=== PATIENT | male | born 1940 | race Caucasian/White ===

== ENCOUNTER 2016-03-16 11:09 | Emergency (ER) | payer MEDICARE ==
[2016-03-16] MEDS ORDERED: ASPIRIN 81 MG TABLET, CHEWABLE PO ONE (11:33)
[2016-03-16 12:02] LABS: HEMATOCRIT 31.5 % (37.9-51.0); HEMOGLOBIN 10.7 g/dL (13.5-17.0); HGB HCT DIFFERENCE 0.6; MEAN CORPUSCULAR HEMOGLOBIN 28.1 pg (27.0-33.4); MEAN CORPUSCULAR HGB CONC 33.9 g/dL (32.0-36.0); MEAN CORPUSCULAR VOLUME 83 fl (80-97); RED CELL DISTRIBUTION WIDTH 15.9 % (11.5-14.0); WHITE BLOOD COUNT 9.5 10^3/uL (4.0-10.5)
[2016-03-16 12:15] LABS: ALANINE AMINOTRANSFERASE 60 U/L (21-72); ALBUMIN 3.5 g/dL (3.5-5.0); ALKALINE PHOSPHATASE 209 U/L (38-126); ANION GAP 11 (5-19); ASPARTATE AMINO TRANSFERASE 51 U/L (17-59); BILIRUBIN,TOTAL 0.4 mg/dL (0.2-1.3); BLOOD UREA NITROGEN 13 mg/dL (7-20); CALCIUM 9.2 mg/dL (8.4-10.2); CARBON DIOXIDE 27 mmol/L (22-30); CHLORIDE 100 mmol/L (98-107); CREATINE KINASE 54 U/L (55-170); CREATININE RESULT 1.08 mg/dL (0.52-1.25); GLUCOSE 80 mg/dL (75-110); POTASSIUM 4.5 mmol/L (3.6-5.0); SODIUM 137.7 mmol/L (137-145); TOTAL PROTEIN 6.9 g/dL (6.3-8.2)
[2016-03-16 12:33] LABS: BAND NEUTROPHILS % (MANUAL) 1 % (3-5); BASOPHILS % (MANUAL) 0 % (0-2); CREATINE KINASE MB 1.35 ng/mL (<4.55); EOSINOPHILS % (MANUAL) 3 % (0-6); LYMPHOCYTES % (MANUAL) 25 % (13-45); TOTAL CELLS COUNTED 100; TROPONIN I < 0.012 ng/mL
[2016-03-16 12:34] LABS: ANISOCYTOSIS SLIGHT
[2016-03-16 13:39] VITALS: BP 126/64
--- NOTE | 2016-03-16 14:49 | ER Document Report ---
ED General - General Chief Complaint: Chest Pain > 30 Stated Complaint: CHEST PAIN TRAVEL OUTSIDE OF THE [place] IN LAST 30 DAYS: No - HPI Patient complains to provider of: chest pain Notes: Patient coming in for evaluation of chest pain. States chest pain started earlier this morning around 10:00 chest pain was in the upper chest. States that last for a few minutes then was resolved with nitroglycerin. Otherwise patient denies any fevers chills nausea vomiting shortness of breath dizziness. - Related Data Allergies/Adverse Reactions: No Known Allergies Allergy (Unverified 04/23/15 14:44) Past Medical History - Social History Smoking Status: Current Every Day Smoker Chew tobacco use (# tins/day): Yes - cigars Frequency of alcohol use: patient states he drinks 3 beers/day Drug Abuse: None Family History: Reviewed & Not Pertinent, Other - Unobtainable Patient has suicidal ideation: No Patient has homicidal ideation: No Renal/ Medical History: Denies: Hx Peritoneal Dialysis Psychiatric Medical History: Denies: Hx Depression Surgical Hx: Negative Review of Systems - Review of Systems Constitutional: No symptoms reported EENT: No symptoms reported Cardiovascular: Chest pain Respiratory: No symptoms reported Gastrointestinal: No symptoms reported Genitourinary: No symptoms reported Male Genitourinary: No symptoms reported Musculoskeletal: No symptoms reported Skin: No symptoms reported Hematologic/Lymphatic: No symptoms reported Neurological/Psychological: No symptoms reported -: Yes All other systems reviewed and negative Physical Exam - Vital signs Vitals: Temp Pulse Resp BP Pulse Ox 98 F 76 18 121/85 99 03/16/16 11:15 03/16/16 11:15 03/16/16 11:15 03/16/16 11:15 03/16/16 11:15 Interpretation: Normal - General General appearance: Appears well, Alert - HEENT Head: Normocephalic, Atraumatic Eyes: Normal Pupils: PERRL - Respiratory Respiratory status: No respiratory distress Chest status: Nontender Breath sounds: Normal Chest palpation: Normal - Cardiovascular Rhythm: Regular Heart sounds: Normal auscultation Murmur: No - Abdominal Inspection: Normal Distension: No distension Bowel sounds: Normal Tenderness: Nontender Organomegaly: No organomegaly - Back Back: Normal, Nontender - Extremities General upper extremity: Normal inspection, Nontender, Normal color, Normal ROM , Normal temperature General lower extremity: Normal inspection, Nontender, Normal color, Normal ROM , Normal temperature, Normal weight bearing. No: Georgina's sign - Neurological Neuro grossly intact: Yes Cognition: Normal Orientation: AAOx4 Peace Coma Scale Eye Opening: Spontaneous [place] Coma Scale Verbal: Oriented Peace Coma Scale Motor: Obeys Commands Peace Coma Scale Total: 15 Speech: Normal Motor strength normal: LUE, RUE, LLE, RLE Sensory: Normal - Psychological Associated symptoms: Normal affect, Normal mood - Skin Skin Temperature: Warm Skin Moisture: Dry Skin Color: Normal Course - Re-evaluation Re-evalutation: 03/17/16 18:50 Patient coming in for evaluation of chest pain. EKG troponin first negative. At this patient requesting to be discharged home. Patient is ANO 3 able to make his own medical decisions. I did warn the patient about certain possible or disability if we did not complete a workup. Patient does not want admission orders were stay for second troponin. Patient will sign out AGAINST MEDICAL ADVICE. - Vital Signs Vital signs: Temp Pulse Resp BP Pulse Ox 98 F 76 14 126/64 H 98 03/16/16 11:15 03/16/16 11:15 03/16/16 13:02 03/16/16 13:02 03/16/16 13:02 - Laboratory Result Diagrams: 03/16/16 11:35 03/16/16 11:35 Laboratory results interpreted by me: 03/16/16 03/16/16 11:35 11:35 RBC 3.80 L Hgb 10.7 L Hct 31.5 L RDW 15.9 H Plt Count 477 H Band Neutrophils % 1 L Alkaline Phosphatase 209 H Creatine Kinase 54 L Discharge - Discharge Clinical Impression: Chest pain Qualifiers: Chest pain type: unspecified Qualified Code(s): R07.9 - Chest pain, unspecified Condition: Good Disposition: HOME, SELF-CARE Instructions: Chest Wall Pain ([facility]), Chest Pain of Unclear Cause ([facility]) Additional Instructions: You have decided to sign out AGAINST MEDICAL ADVICE. At this time your laboratory studies an EKG showed no critical cause of your chest pain. I would recommend that she stay in hospital for further observation however at this time he was to be discharged home. He stated understanding that without complete workup this could result in certain disability and/or . I'll recommend following up with your primary care physician.
--- NOTE | 2016-03-17 11:34 | EKG REPORT ---
SEVERITY:- ABNORMAL ECG - SINUS RHYTHM ABNRM R PROG, CONSIDER ASMI OR LEAD PLACEMENT : Confirmed by: Jessica William 17-Mar-2016 11:33:31
== END 2016-03-16 14:52 | disposition left against medical advice (07) ==
LOC: ER 11:09
DX: R07.9 Chest pain, unspecified (principal); F17.210 Nicotine dependence, cigarettes, uncomplicated
CPT/HCPCS: 36415; 71010; 80053; 82550; 82553; 84484; 85025; 93005; 93010; 99285

== ENCOUNTER 2016-05-01 00:57 | Inpatient (IN) | payer MEDICARE ==
[2016-05-01] MEDS ORDERED: DIPH/PERTUSS(ACELL)/TETANUS VAC/PF 0.5 ML SYR (>=10YO) IM ONE (01:34)
[2016-05-01] MEDS ORDERED: ALBUTEROL SULFATE 0.083% NEB 2.5 MG/3 ML AMPUL NEB ONE (01:34)
[2016-05-01 01:43] LABS: ABSOLUTE BASOPHILS # (AUTO) 0.1 10^3/uL (0.0-0.2); ABSOLUTE LYMPHOCYTES (AUTO) 1.5 10^3/uL (0.5-4.7); ABSOLUTE MONOCYTES (AUTO) 0.8 10^3/uL (0.1-1.4); ABSOLUTE NEUT (AUTO) 10.5 10^3/uL (1.7-8.2); BASOPHILS % (AUTO) 0.5 % (0-2); EOSINOPHILS % (AUTO) 0.2 % (0-6); HEMATOCRIT 30.2 % (37.9-51.0); HEMOGLOBIN 10.1 g/dL (13.5-17.0); HGB HCT DIFFERENCE 0.1; LYMPHOCYTES % (AUTO) 11.9 % (13-45); MEAN CORPUSCULAR HEMOGLOBIN 27.5 pg (27.0-33.4); MEAN CORPUSCULAR HGB CONC 33.3 g/dL (32.0-36.0); MEAN CORPUSCULAR VOLUME 83 fl (80-97); MONOCYTES % (AUTO) 6.5 % (3-13); RED BLOOD COUNT 3.65 10^6/uL (4.35-5.55); RED CELL DISTRIBUTION WIDTH 17.1 % (11.5-14.0); SEGMENTED NEUTROPHILS % (AUTO) 80.9 % (42-78)
--- NOTE | 2016-05-01 01:44 | ER Document Report ---
ED General - General Stated Complaint: DIFFICULTY BREATHING Time seen by provider: 01:44 Mode of Arrival: Medic Information source: Emergency Med Personnel TRAVEL OUTSIDE OF THE [place] IN LAST 30 DAYS: No - HPI Patient complains to provider of: fall, difficulty breathing Onset: Just prior to arrival Associated symptoms: Nonproductive cough, Shortness of breath Similar symptoms previously: Yes Notes: Patient is a 75-year-old male who was brought to the emergency room by EMS, the initial complaint was fall, however EMS reports the patient had difficulty breathing with an initial pulse ox in the 70s on arrival, patient is pleasantly confused and has no complaints but was unable to provide any specific details about his condition, he is noted to be wheezing bilaterally, and has several skin tears on his extremities consistent with the recent fall, no family members have come to the emergency room to provide any additional information regarding patient - Related Data Allergies/Adverse Reactions: No Known Allergies Allergy (Unverified 04/23/15 14:44) Past Medical History - General Information source: Emergency Med Personnel - Social History Smoking Status: Current Every Day Smoker Family History: Reviewed & Not Pertinent, Other - Unobtainable Renal/ Medical History: Denies: Hx Peritoneal Dialysis Psychiatric Medical History: Denies: Hx Depression Review of Systems - Review of Systems -: Yes ROS unobtainable due to patient's medical condition Constitutional: No symptoms reported EENT: No symptoms reported Cardiovascular: No symptoms reported Respiratory: See HPI Gastrointestinal: No symptoms reported Genitourinary: No symptoms reported Male Genitourinary: No symptoms reported Musculoskeletal: See HPI Skin: See HPI Hematologic/Lymphatic: No symptoms reported Neurological/Psychological: No symptoms reported Physical Exam - Vital signs Interpretation: Tachycardic - General General appearance: Alert, Other - Pleasantly confused, appears older than stated age, chronically ill-appearing - HEENT Head: Normocephalic, Atraumatic Eyes: Normal Conjunctiva: Normal Extraocular movements intact: Yes Eyelashes: Normal Pupils: PERRL Mucous membranes: Dry Pharynx: Normal Neck: Normal - Respiratory Respiratory status: No respiratory distress Chest status: Nontender Breath sounds: Nonproductive cough, Wheezing Chest palpation: Normal - Cardiovascular Rhythm: Regular, Tachycardia Heart sounds: Normal auscultation Murmur: No - Abdominal Inspection: Normal Distension: No distension Bowel sounds: Normal Tenderness: Nontender Organomegaly: No organomegaly - Back Back: Normal, Nontender - Extremities General upper extremity: Other - Several superficial skin tears Knee: Other - Skin tear on left knee, full range of motion, distal sensation and motor is intact - Neurological Orientation: Disoriented to place, Disoriented to events Peace Coma Scale Eye Opening: Spontaneous [place] Coma Scale Verbal: Confused [place] Coma Scale Motor: Obeys Commands [place] Coma Scale Total: 14 Motor strength normal: LUE, RUE, LLE, RLE - Skin Skin Temperature: Warm Skin Moisture: Dry Skin Color: Normal Course - Re-evaluation Re-evalutation: 05/01/16 03:37 Patient pleasantly confused, I'm unsure what his baseline is as no family members have accompanied him to the emergency room, he does appear to have fallen recently, he is also wheezing, has evidence of urinary tract infection and leukocytosis, patient was given several breathing treatments, as well as IV antibiotics and discussed with the hospitalist who agrees to admit for further evaluation and treatment - Laboratory Result Diagrams: 05/01/16 01:15 05/01/16 01:15 Laboratory results interpreted by me: 05/01/16 05/01/16 05/01/16 01:15 01:15 01:15 WBC 13.0 H RBC 3.65 L Hgb 10.1 L Hct 30.2 L RDW 17.1 H Seg Neutrophils % 80.9 H Lymphocytes % 11.9 L Absolute Neutrophils 10.5 H Sodium 127.2 L Chloride 91 L Carbon Dioxide 21 L Glucose 74 L AST 93 H ALT 83 H Alkaline Phosphatase 217 H NT-Pro-B Natriuret Pep 1510 H Albumin 3.4 L Urine Protein Urine Blood 05/01/16 01:26 WBC RBC Hgb Hct RDW Seg Neutrophils % Lymphocytes % Absolute Neutrophils Sodium Chloride Carbon Dioxide Glucose AST ALT Alkaline Phosphatase NT-Pro-B Natriuret Pep Albumin Urine Protein 100 H Urine Blood LARGE H - Diagnostic Test Radiology reviewed: Image reviewed, Reports reviewed - EKG Interpretation by Me EKG shows normal: Sinus rhythm Rate: Tachycardia - Transfer of Care Care transferred to following provider: Dr. Hopper Discharge - Discharge Clinical Impression: COPD exacerbation, Hyponatremia Urinary tract infection Qualifiers: Urinary tract infection type: site unspecified Hematuria presence: without hematuria Qualified Code(s): N39.0 - Urinary tract infection, site not specified Condition: Fair Disposition: ADMITTED INPATIENT Admitting Provider: Hospitalist Unit Admitted: Telemetry Referrals: CAROLINA KERNS MD [Primary Care Provider] - Follow up as needed
[2016-05-01 01:46] LABS: VENOUS BLOOD BASE EXCESS -0.5 mmol/L; VENOUS BLOOD HCO3 24.9 mmol/L (20-32); VENOUS BLOOD PCO2 43.3 mmHg (35-63); VENOUS BLOOD PH 7.38 (7.30-7.42)
[2016-05-01 01:52] LABS: ALANINE AMINOTRANSFERASE 83 U/L (21-72); ALBUMIN 3.4 g/dL (3.5-5.0); ALKALINE PHOSPHATASE 217 U/L (38-126); ANION GAP 15 (5-19); ASPARTATE AMINO TRANSFERASE 93 U/L (17-59); BILIRUBIN,TOTAL 0.5 mg/dL (0.2-1.3); BLOOD UREA NITROGEN 15 mg/dL (7-20); CARBON DIOXIDE 21 mmol/L (22-30); CHLORIDE 91 mmol/L (98-107); CREATININE RESULT 1.06 mg/dL (0.52-1.25); GLUCOSE 74 mg/dL (75-110); POTASSIUM 4.5 mmol/L (3.6-5.0); SODIUM 127.2 mmol/L (137-145); TOTAL PROTEIN 6.7 g/dL (6.3-8.2)
[2016-05-01 02:05] LABS: APPEARANCE,URINE CLOUDY; BILIRUBIN,URINE NEGATIVE (NEGATIVE); GLUCOSE, URINE NEGATIVE (NEGATIVE); KETONES,URINE NEGATIVE (NEGATIVE); LEUKOCYTE ESTERASE,URINE NEGATIVE (NEGATIVE); NITRITE,URINE NEGATIVE (NEGATIVE); PROTEIN,URINE 100 mg/dL (NEGATIVE); URINE SPECIFIC GRAVITY 1.013; UROBILINOGEN,URINE NEGATIVE mg/dL (<2.0)
[2016-05-01] MEDS ORDERED: IPRATROPIUM/ALBUTEROL 0.5-2.5 MG/3 ML AMPUL NEB ONE (02:38)
[2016-05-01] MEDS ORDERED: LEVOFLOXACIN 750 MG/D5W RTU 150 ML IV ONE (02:44)
[2016-05-01] MEDS ORDERED: CEFTRIAXONE RTU 1 GM/D5W 50 ML IV ONE (02:44)
[2016-05-01] MEDS ORDERED: DEXTROSE 50%-WATER 25 GM/50 ML DISP.SYRIN IV ONE (03:26)
[2016-05-01] MEDS ORDERED: ACETAMINOPHEN 325 MG TABLET PO PRN (04:06)
[2016-05-01] MEDS ORDERED: NORMAL SALINE 1000 ML 1,000 ML IV SCH (04:15)
[2016-05-01 05:17] LABS: URINE BARBITURATES SCREEN NEGATIVE; URINE METHADONE SCREEN NEGATIVE; URINE OPIATES LOW NEGATIVE; URINE PHENCYCLIDINE SCREEN NEGATIVE
[2016-05-01 05:39] LABS: ABSOLUTE BASOPHILS # (AUTO) 0.1 10^3/uL (0.0-0.2); ABSOLUTE LYMPHOCYTES (AUTO) 0.6 10^3/uL (0.5-4.7); ABSOLUTE MONOCYTES (AUTO) 0.5 10^3/uL (0.1-1.4); ABSOLUTE NEUT (AUTO) 8.7 10^3/uL (1.7-8.2); BASOPHILS % (AUTO) 0.5 % (0-2); HEMATOCRIT 27.4 % (37.9-51.0); HEMOGLOBIN 9.4 g/dL (13.5-17.0); HGB HCT DIFFERENCE 0.8; LYMPHOCYTES % (AUTO) 6.2 % (13-45); MEAN CORPUSCULAR HEMOGLOBIN 28.1 pg (27.0-33.4); MEAN CORPUSCULAR HGB CONC 34.4 g/dL (32.0-36.0); MEAN CORPUSCULAR VOLUME 82 fl (80-97); MONOCYTES % (AUTO) 5.5 % (3-13); RED BLOOD COUNT 3.35 10^6/uL (4.35-5.55); RED CELL DISTRIBUTION WIDTH 16.8 % (11.5-14.0); SEGMENTED NEUTROPHILS % (AUTO) 87.8 % (42-78); WHITE BLOOD COUNT 9.9 10^3/uL (4.0-10.5)
[2016-05-01 06:01] LABS: ANION GAP 12 (5-19); BLOOD UREA NITROGEN 15 mg/dL (7-20); CALCIUM 8.6 mg/dL (8.4-10.2); CARBON DIOXIDE 20 mmol/L (22-30); CHLORIDE 95 mmol/L (98-107); CREATININE RESULT 1.04 mg/dL (0.52-1.25); GLUCOSE 101 mg/dL (75-110); SODIUM 126.9 mmol/L (137-145)
[2016-05-01] MEDS ORDERED: THIAMINE HCL 100 MG, FOLIC ACID 1 MG in NORMAL SALINE 50 ML IV SCH (06:30)
[2016-05-01 06:32] LABS: POTASSIUM 3.5 mmol/L (3.6-5.0)
--- NOTE | 2016-05-01 06:34 | PDOC H&P ---
History of Present Illness Admission Date/PCP: 05/01/16 04:06 CAROLINA KERNS MD Patient complains of: Altered mental status History of Present Illness: LIZABETH MICHAELS is a 75 year old male with a past medical history of alcohol dependence, COPD, deafness, and recurrent falls. Who presented via EMS for shortness of breath and falls found to have oxygen saturation in the 70s with bilateral wheezing and notable for skin tears on all 4 extremities. Patient is thought to have profound encephalopathy but is deaf and unable to verbalize he feels much better and denied pain but unable to give any details. Family members are unable to be contacted for additional history. In the emergency room his found to have encephalopathy trying to smoke his pulse oximeter, leukocytosis, hyponatremia and COPD exacerbation he started on empiric antibiotics and DuoNeb and referred to the hospitalist for admission Past Medical History Pulmonary Medical History: Reports: Chronic Obstructive Pulmonary Disease (COPD) Psychiatric Medical History: Reports: Alcohol Dependency, Tobacco Dependency Denies: Depression Social History Information Source: [facility] Records Smoking Status: Current Every Day Smoker Frequency of Alcohol Use: Heavy Hx Recreational Drug Use: No Hx Prescription Drug Abuse: No - Advance Directive Resuscitation Status: Full Code Family History Family History: Other - Unobtainable Parental Family History Reviewed: Yes - unobtainable Children Family History Reviewed: Yes Sibling(s) Family History Reviewed.: Yes Medication/Allergy Home Medications: Albuterol Sulfate [Proair HFA] 2 puff IH Q6 04/23/15 Docusate Sodium [Colace 100 mg Capsule] 100 mg PO BID capsule 05/01/15 Folic Acid 1 mg PO DAILY #30 tablet 05/01/15 Lansoprazole [Prevacid 30 mg Odt Tablet] 30 mg PO Q6AM tab.rap. 05/01/15 Multivitamin [Multivitamins] 1 each PO DAILY #30 capsule 05/01/15 Risperidone [Risperdal 1 mg Tablet] 1 mg PO QHS tablet 05/01/15 Thiamine HCl [Thiamine 100 mg Tablet] 100 mg PO DAILY #30 tablet 05/01/15 Trazodone HCl [Desyrel 50 mg Tablet] 50 mg PO QHS tablet 05/01/15 Cephalexin Monohydrate [Keflex 500 mg Capsule] 500 mg PO QID #20 capsule Allergies/Adverse Reactions: No Known Allergies Allergy (Unverified 04/23/15 14:44) Review of Systems ROS unobtainable: Due to mental status - Unobtainable secondary to encephalopathy Physical Exam Vital Signs: Temp Pulse Resp BP Pulse Ox 98.0 F 99 16 133/75 H 98 05/01/16 05:37 05/01/16 05:37 05/01/16 05:37 05/01/16 05:37 05/01/16 05:37 General appearance: PRESENT: disheveled, hard of hearing, mild distress, thin Head exam: PRESENT: atraumatic, normocephalic Eye exam: PRESENT: conjunctiva pink, EOMI, PERRLA. ABSENT: scleral icterus Ear exam: PRESENT: normal external ear exam Mouth exam: PRESENT: dry mucosa Neck exam: ABSENT: carotid bruit, JVD, lymphadenopathy, thyromegaly Respiratory exam: PRESENT: accessory muscle use, crackles, prolonged expiratory phas, symmetrical, tachypnea. ABSENT: rales, rhonchi, wheezes Cardiovascular exam: PRESENT: RRR. ABSENT: diastolic murmur, rubs, systolic murmur Pulses: PRESENT: normal dorsalis pedis pul Vascular exam: PRESENT: normal capillary refill GI/Abdominal exam: PRESENT: normal bowel sounds, soft. ABSENT: distended, guarding, mass, organolmegaly, rebound, tenderness Rectal exam: PRESENT: deferred Extremities exam: PRESENT: full ROM, other - Abrasions, ecchymosis and skin tears to all 4 extremities. ABSENT: calf tenderness, clubbing, joint swelling Neurological exam: PRESENT: altered, oriented to person, CN II-XII grossly intact Psychiatric exam: PRESENT: unusual affect Skin exam: PRESENT: abrasion, other - Abrasions, skin tears and ecchymosis on all 4 extremities Results Laboratory Results: 05/01/16 05:32 05/01/16 05:32 WBC 9.9 RBC 3.35 L Hgb 9.4 L Hct 27.4 L MCV 82 MCH 28.1 MCHC 34.4 RDW 16.8 H Plt Count 319 Seg Neutrophils % 87.8 H Lymphocytes % 6.2 L Monocytes % 5.5 Eosinophils % 0.0 Basophils % 0.5 Absolute Neutrophils 8.7 H Absolute Lymphocytes 0.6 Absolute Monocytes 0.5 Absolute Eosinophils 0.0 Absolute Basophils 0.1 Impressions: Chest X-Ray 05/01/16 01:33 IMPRESSION: NO ACUTE RADIOGRAPHIC FINDING IN THE CHEST. Knee X-Ray 05/01/16 01:34 IMPRESSION: NEGATIVE STUDY OF THE LEFT KNEE. NO RADIOGRAPHIC EVIDENCE OF ACUTE INJURY. Assessment & Plan - Diagnosis (1) COPD exacerbation Is this a current diagnosis for this admission?: YesPlan: Likely secondary to acute on chronic bronchitis he'll receive supplemental oxygen empiric antibiotics albuterol nebulizer and aggressive pulmonary toilet (2) Alcohol dependence Is this a current diagnosis for this admission?: YesPlan: Thiamine folate when necessary Ativan (3) Altered mental status Qualifiers: Altered mental status type: disorientation Qualified Code(s): R41.0 - Disorientation, unspecified Is this a current diagnosis for this admission?: YesPlan: Likely secondary to the above possible early alcohol withdrawal continue supportive care, thiamine and folate (4) Falls Is this a current diagnosis for this admission?: YesPlan: Deconditioning versus Warnicke's encephalopathy patient will need physical therapy evaluation (5) Hyponatremia Is this a current diagnosis for this admission?: YesPlan: Patient appears significantly dehydrated he'll receive a normal saline fluid challenge with evaluation of chemistry every 8 hours - Time Time Spent: 50 to 70 Minutes
[2016-05-01] MEDS: IPRATROPIUM/ALBUTEROL 0.5-2.5 MG/3 ML AMPUL NEB SCH ×2 (08:05→14:21)
[2016-05-01] MEDS ORDERED: POTASSIUM CHLORIDE 10 MEQ TABLET.SA PO ONE (08:30)
[2016-05-01] MEDS ORDERED: FOLIC ACID 1 MG TABLET PO SCH (10:00)
[2016-05-01] MEDS ORDERED: LEVOFLOXACIN 750 MG/D5W RTU 150 ML IV SCH (10:00)
[2016-05-01] MEDS ORDERED: GUAIFENESIN 600 MG TABLET.SA PO SCH (10:00)
[2016-05-01] MEDS ORDERED: DOCUSATE SODIUM 100 MG CAPSULE PO SCH (10:00)
[2016-05-01] MEDS ORDERED: THIAMINE HCL 100 MG TABLET PO SCH (10:00)
[2016-05-01] MEDS ORDERED: LEVOFLOXACIN 750 MG TABLET PO SCH (11:00)
[2016-05-01] MEDS ORDERED: PREDNISONE 20 MG TABLET PO ONE (11:30)
[2016-05-01 13:24] VITALS: BP 105/74
[2016-05-01] MEDS: HEPARIN SOD (PORCINE) 5,000 UNIT/ML 1 ML SYRINGE SUBCUT SCH ×2 (14:07→14:25)
[2016-05-01 14:28] LABS: ANION GAP 12 (5-19); BLOOD UREA NITROGEN 14 mg/dL (7-20); CALCIUM 8.8 mg/dL (8.4-10.2); CARBON DIOXIDE 22 mmol/L (22-30); CHLORIDE 96 mmol/L (98-107); CREATININE RESULT 1.09 mg/dL (0.52-1.25); GLUCOSE 82 mg/dL (75-110); SODIUM 129.5 mmol/L (137-145)
--- NOTE | 2016-05-01 17:32 | PDOC DISCHARGE SUMMARY ---
General - Admit/Disc Date/PCP Admission Date/Primary Care Provider: 05/01/16 04:06 CAROLINA KERNS MD Discharge Date: 05/01/16 - Discharge Diagnosis (1) Left against medical advice Is this a current diagnosis for this admission?: Yes (2) COPD exacerbation Is this a current diagnosis for this admission?: Yes (3) Liver mass Is this a current diagnosis for this admission?: Yes (4) Anemia Is this a current diagnosis for this admission?: Yes (5) Alcohol dependence Is this a current diagnosis for this admission?: Yes (6) Hyponatremia Is this a current diagnosis for this admission?: Yes - Additional Information Resuscitation Status: Full Code Home Medications: Albuterol Sulfate [Proair HFA] 2 puff IH Q6 04/23/15 Docusate Sodium [Colace 100 mg Capsule] 100 mg PO BID capsule 05/01/15 Folic Acid 1 mg PO DAILY #30 tablet 05/01/15 Lansoprazole [Prevacid 30 mg Odt Tablet] 30 mg PO Q6AM tab.rap. 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 Also could be related to his drinking. Patient's sodium improved with fluid restriction.Patient was started on prednisone and Levaquin. Patient was also started on scheduled nebulized treatments. Patient was able to ambulate with assistance. Apparently, patient began reporting that he wanted to leave and at that time was reported to me that he was awake alert and oriented 3 which is documented. He was permitted significance medical advice. Should be noted I did attempt to call his daughter today in order to discuss an underlying liver mass of unsure etiology. Patient was given no prescriptions. No follow-up appointments are made for patient. Physical Exam Vital Signs: Temp Pulse Resp BP Pulse Ox 98.7 F 86 18 105/74 95 05/01/16 12:07 05/01/16 14:25 05/01/16 14:25 05/01/16 12:07 05/01/16 14:25 Intake & Output 04/30/16 05/01/16 05/02/16 06:59 06:59 06:59 Weight 64.1 kg Exam: General: Hard of hearing, no acute respiratory distress HEENT: AT/NC, PERRL, EOMI, oropharynx is moist, pink, no scleral icterus, no conjunctival injection Neck: No JVD, trachea midline Chest: Prolonged expiratory phase, Clear to auscultation bilaterally, no wheezes rhonchi or rales CV: Regular rate and rhythm, normal S1 and S2, no murmur, rub, or gallop Abdomen: Soft, nontender to palpation, mildly+, active bowel sounds; no rebound , rigidity, or guarding Extremities: No cyanosis, clubbing or edema Neuro: Patient is hard of hearing, grossly intact, Results Laboratory Results: 05/01/16 05:32 05/01/16 13:53 05/01/16 05/01/16 05/01/16 05:32 05:32 05:32 WBC 9.9 RBC 3.35 L Hgb 9.4 L Hct 27.4 L MCV 82 MCH 28.1 MCHC 34.4 RDW 16.8 H Plt Count 319 Seg Neutrophils % 87.8 H Lymphocytes % 6.2 L Monocytes % 5.5 Eosinophils % 0.0 Basophils % 0.5 Absolute Neutrophils 8.7 H Absolute Lymphocytes 0.6 Absolute Monocytes 0.5 Absolute Eosinophils 0.0 Absolute Basophils 0.1 Sodium 126.9 L Potassium 3.5 L D Chloride 95 L Carbon Dioxide 20 L Anion Gap 12 BUN 15 Creatinine 1.04 Est GFR ( Amer) > 60 Est GFR (Non-Af Amer) > 60 Glucose 101 Serum Osmolality 258 L Calcium 8.6 Magnesium 05/01/16 05/01/16 05:32 13:53 WBC RBC Hgb Hct MCV MCH MCHC RDW Plt Count Seg Neutrophils % Lymphocytes % Monocytes % Eosinophils % Basophils % Absolute Neutrophils Absolute Lymphocytes Absolute Monocytes Absolute Eosinophils Absolute Basophils Sodium 129.5 L Potassium 4.0 Chloride 96 L Carbon Dioxide 22 Anion Gap 12 BUN 14 Creatinine 1.09 Est GFR ( Amer) > 60 Est GFR (Non-Af Amer) > 60 Glucose 82 Serum Osmolality Calcium 8.8 Magnesium 1.8 Impressions: Chest X-Ray 05/01/16 01:33 IMPRESSION: NO ACUTE RADIOGRAPHIC FINDING IN THE CHEST. Knee X-Ray 05/01/16 01:34 IMPRESSION: NEGATIVE STUDY OF THE LEFT KNEE. NO RADIOGRAPHIC EVIDENCE OF ACUTE INJURY. Qualifiers PATEINT BEING DISCHARGED WITH ANY OF THE FOLLOWING DIAGNOSIS?: No Plan Time Spent: Less than 30 Minutes
[2016-05-01] MEDS ORDERED: PREDNISONE 20 MG TABLET PO SCH (18:00)
== END 2016-05-01 15:45 | disposition left against medical advice (07) | DRG 190 ==
LOC: ER 00:57 → EH 03:38 → UNDOADMIN 03:38 → EH 04:06 → 5 05:55
PROVIDERS: ADMIT Internal Medicine; ATTEND Internal Medicine
PROC: 3E0F73Z Introduction of Anti-inflammatory into Respiratory Tract, Via Natural or Artificial Opening (ICD-10-PCS; principal; 2016-05-01)
DX: J44.1 Chronic obstructive pulmonary disease with (acute) exacerbation (principal); G93.40 Encephalopathy, unspecified; E22.2 Syndrome of inappropriate secretion of antidiuretic hormone; F10.20 Alcohol dependence, uncomplicated; D64.9 Anemia, unspecified; Z53.21 Procedure and treatment not carried out due to patient leaving prior to being seen by health care provider; R29.6 Repeated falls; H91.90 Unspecified hearing loss, unspecified ear; J44.0 Chronic obstructive pulmonary disease with (acute) lower respiratory infection; J20.9 Acute bronchitis, unspecified; R16.0 Hepatomegaly, not elsewhere classified; S40.812A Abrasion of left upper arm, initial encounter; S40.811A Abrasion of right upper arm, initial encounter; S80.812A Abrasion, left lower leg, initial encounter; S80.811A Abrasion, right lower leg, initial encounter; W19.XXXA Unspecified fall, initial encounter; Z79.899 Other long term (current) drug therapy; Z91.81 History of falling
CPT/HCPCS: 36415; 71010; 80048; 80053; 80307; 81001; 82140; 82803; 82962; 83735; 83880; 83930; 83935; 84443; 85025; 87086; 90471; 90715; 94640; 99285; J0696; J1644; J1956; J3490; J7030; J7512; J7620

== ENCOUNTER 2016-05-02 18:44 | Inpatient (IN) | payer MEDICARE ==
[2016-05-02] MEDS ORDERED: NORMAL SALINE 1000 ML 500 ML IV ONE (18:55)
[2016-05-02] MEDS ORDERED: THIAMINE HCL 500 MG in NORMAL SALINE 250 ML IV ONE (18:56)
[2016-05-02] MEDS ORDERED: METHYLPREDNISOLONE INJ 125 MG/2 ML SDV IV ONE (18:58)
[2016-05-02] MEDS ORDERED: ALBUTEROL SULFATE 0.083% NEB 2.5 MG/3 ML AMPUL NEB ONE (18:59)
[2016-05-02] MEDS ORDERED: MAGNESIUM SULFATE/D5W 100 ML IV SCH (19:00)
--- NOTE | 2016-05-02 19:02 | ER Document Report ---
ED General - General Stated Complaint: RESPIRATORY DISTRESS Cannot obtain history due to: Mentally challenged, Uncooperative Notes: Patient is a 75-year-old male who presents in respiratory distress. He apparently eloped from the hospital earlier today after being admitted for the same. Patient is a very poor historian and does not provide any meaningful history at time of arrival. EMS states that her family member who patient lives with contacted EMS when she noted progressively worsening shortness of breath. TRAVEL OUTSIDE OF THE [place] IN LAST 30 DAYS: No - Related Data Allergies/Adverse Reactions: No Known Allergies Allergy (Unverified 04/23/15 14:44) Past Medical History - General Information source: Emergency Med Personnel Cannot obtain history due to: Unstable vital signs, Uncooperative - Social History Smoking Status: Current Every Day Smoker Frequency of alcohol use: Heavy Drug Abuse: None Lives with: Family Family History: Other - Unobtainable Pulmonary Medical History: Reports: Hx COPD Renal/ Medical History: Denies: Hx Peritoneal Dialysis Psychiatric Medical History: Denies: Hx Depression Review of Systems - Review of Systems Notes: Constitutional: Negative for fever. HENT: Negative for sore throat. Eyes: Negative for visual changes. Cardiovascular: Negative for chest pain. Respiratory: Positive for shortness of breath. Gastrointestinal: Negative for abdominal pain, vomiting or diarrhea. Genitourinary: Negative for dysuria. Musculoskeletal: Negative for back pain. Skin: Negative for rash. Neurological: Negative for headaches, weakness or numbness. 10 point ROS negative except as marked above and in HPI. Physical Exam - Vital signs Vitals: Resp Pulse Ox 23 H 97 05/02/16 18:55 05/02/16 18:55 Interpretation: Tachycardic, Hypoxic, Tachypneic Notes: PHYSICAL EXAMINATION: GENERAL: Frail, ill-appearing elderly gentleman. Appears old than stated age HEAD: Atraumatic, normocephalic. EYES: Pupils equal round and reactive to light, extraocular movements intact, sclera with mild icterus, conjunctiva are normal. ENT: nares patent, oropharynx clear without exudates. Dry mucous membranes. NECK: Normal range of motion, supple without lymphadenopathy LUNGS: Moderate respiratory distress with intercostal retractions, tachypnea with initial respiratory rate in the low 30s. Diffuse wheezing in all lung singh with diminished air movement throughout. HEART: Regular tachycardia without murmurs ABDOMEN: Soft, nontender, normoactive bowel sounds. No guarding, no rebound. No masses appreciated. EXTREMITIES: Normal range of motion, no pitting or edema. No cyanosis. NEUROLOGICAL: No focal neurological deficits. Moves all extremities spontaneously and on command. PSYCH: Seems confused, oriented only to person. SKIN: Warm, Dry, normal turgor, multiple abrasions and excoriations on all 4 extremities Course - Re-evaluation Re-evalutation: 05/02/16 19:01 Patient arrives in respiratory distress, saturating 73% on room air. He currently left AGAINST MEDICAL ADVICE earlier today from the hospital after being admitted for COPD exacerbation as well as hyponatremia likely secondary to his chronic alcoholism. Patient is not able to provide any meaningful history at time of arrival, smells of alcohol and appears intoxicated. He has multiple abrasions and excoriations all extremities consistent with multiple repeated falls. He does have significant wheezing with poor air movement bilaterally with associated intercostal and supraclavicular retractions. He was immediately placed on BiPAP with continuous albuterol inhalers in-line. IV magnesium, Solu-Medrol, fluids, and thiamine are being administered. Of note, patient still has an IV in place from when he left. He is critically ill at this time will require frequent reassessments. 05/02/16 19:24 Patient's work of breathing is improving on BiPAP and he has become very tremulous and states he feels he is beginning to withdrawal from alcohol. 5 mg of IV diazepam will be administered. Will continue to reassess frequently 05/02/16 2200 Patient's work of breathing remains improved. CXR read as pneumonia, abx started. Case discussed with who will admit. 2350- Patient is more somnolent now, no new meds given. Accucheck within normal limits. VBG repeat without elevated c02. Other vitals wnl. Unclear etiology of patient's somnolence although he continues to move all extremities with noxious stimuli and resist eye opening. Will obtain a CT head to exclude intracranial bleed although I think this is unlikely. 05/03/16 02:42 CT head negative for any acute intercranial bleed. Patient is more awake at this time. - Vital Signs Vital signs: Temp Pulse Resp BP Pulse Ox 19 124/63 100 05/02/16 23:01 05/02/16 23:01 05/02/16 23:01 - Laboratory Result Diagrams: 05/02/16 19:53 05/02/16 19:53 Laboratory results interpreted by me: 05/02/16 05/02/16 05/02/16 19:53 19:53 23:07 WBC 12.4 H RBC 3.59 L Hgb 10.1 L Hct 30.1 L RDW 17.3 H Seg Neutrophils % 86.9 H Lymphocytes % 7.7 L Absolute Neutrophils 10.8 H VBG HCO3 Sodium 130.3 L Chloride 96 L Carbon Dioxide 21 L BUN 27 H Creatinine 1.37 H Est GFR (Non-Af Amer) 51 L Direct Bilirubin 0.5 H AST 409 H ALT 283 H Alkaline Phosphatase 166 H Ammonia < 8.7 L Albumin 3.2 L 05/02/16 23:07 WBC RBC Hgb Hct RDW Seg Neutrophils % Lymphocytes % Absolute Neutrophils VBG HCO3 19.9 L Sodium Chloride Carbon Dioxide BUN Creatinine Est GFR (Non-Af Amer) Direct Bilirubin AST ALT Alkaline Phosphatase Ammonia Albumin - Diagnostic Test Radiology reviewed: Image reviewed, Reports reviewed Radiology results interpreted by me: 05/02/16 23:59 Chest x-ray: Right-sided pneumonia - EKG Interpretation by Me Additional EKG results interpreted by me: 05/03/16 02:41 Normal sinus rhythm. Rate 96. PACs. No ST elevation or depression. Critical Care Note - Critical Care Note Total time excluding time spent on procedures (mins): 40 Comments: Critical care time spent obtaining history from patient or surrogate, discussions with consultants, development of treatment plan with patient or surrogate, evaluation of patient's response to treatment, examination of patient , ordering and performing treatments and interventions, ordering and review of laboratory studies, re-evaluation of patient's condition, ordering and review of radiographic studies and review of old charts Discharge - Discharge Clinical Impression: COPD exacerbation, Respiratory distress Pneumonia Qualifiers: Pneumonia type: due to unspecified organism Laterality: right Lung location: middle lobe of lung Qualified Code(s): J18.1 - Lobar pneumonia, unspecified organism Condition: Fair Disposition: ADMITTED INPATIENT Admitting Provider: [facility] Unit Admitted: Telemetry
[2016-05-02] MEDS ORDERED: DIAZEPAM INJ 10 MG/2 ML DISP.SYRIN IV ONE (19:24)
[2016-05-02] MEDS ORDERED: CEFTRIAXONE 1 GM/D5W RTU 50 ML IV ONE (19:49)
[2016-05-02] MEDS ORDERED: AZITHROMYCIN 250 MG TABLET PO ONE (19:50)
[2016-05-02 20:13] LABS: ABSOLUTE BASOPHILS # (AUTO) 0.1 10^3/uL (0.0-0.2); ABSOLUTE MONOCYTES (AUTO) 0.6 10^3/uL (0.1-1.4); ABSOLUTE NEUT (AUTO) 10.8 10^3/uL (1.7-8.2); BASOPHILS % (AUTO) 0.6 % (0-2); HEMATOCRIT 30.1 % (37.9-51.0); HEMOGLOBIN 10.1 g/dL (13.5-17.0); HGB HCT DIFFERENCE 0.2; LYMPHOCYTES % (AUTO) 7.7 % (13-45); MEAN CORPUSCULAR HGB CONC 33.5 g/dL (32.0-36.0); MEAN CORPUSCULAR VOLUME 84 fl (80-97); MONOCYTES % (AUTO) 4.8 % (3-13); RED BLOOD COUNT 3.59 10^6/uL (4.35-5.55); RED CELL DISTRIBUTION WIDTH 17.3 % (11.5-14.0); SEGMENTED NEUTROPHILS % (AUTO) 86.9 % (42-78); WHITE BLOOD COUNT 12.4 10^3/uL (4.0-10.5)
[2016-05-02 20:25] LABS: VENOUS BLOOD HCO3 20.2 mmol/L (20-32); VENOUS BLOOD PCO2 38.4 mmHg (35-63); VENOUS BLOOD PH 7.34 (7.30-7.42)
[2016-05-02] MEDS ORDERED: THIAMINE HCL 500 MG in NORMAL SALINE 50 ML IV ONE (20:30)
[2016-05-02 20:33] LABS: ALANINE AMINOTRANSFERASE 283 U/L (21-72); ALBUMIN 3.2 g/dL (3.5-5.0); ALCOHOL < 10 mg/dL (NONE DETECTED); ALKALINE PHOSPHATASE 166 U/L (38-126); ANION GAP 13 (5-19); ASPARTATE AMINO TRANSFERASE 409 U/L (17-59); BILIRUBIN,DIRECT 0.5 mg/dL (0.0-0.4); BILIRUBIN,TOTAL 0.5 mg/dL (0.2-1.3); BLOOD UREA NITROGEN 27 mg/dL (7-20); CARBON DIOXIDE 21 mmol/L (22-30); CHLORIDE 96 mmol/L (98-107); CREATININE RESULT 1.37 mg/dL (0.52-1.25); GLUCOSE 88 mg/dL (75-110); SODIUM 130.3 mmol/L (137-145); TOTAL PROTEIN 6.6 g/dL (6.3-8.2)
[2016-05-02] MEDS ORDERED: AZITHROMYCIN 250 MG TABLET ONE (23:01)
[2016-05-02] MEDS ORDERED: AZITHROMYCIN INJ 500 MG VIAL IV ONE (23:38)
[2016-05-02 23:48] LABS: VENOUS BLOOD BASE EXCESS -5.9 mmol/L; VENOUS BLOOD HCO3 19.9 mmol/L (20-32); VENOUS BLOOD PCO2 40.3 mmHg (35-63); VENOUS BLOOD PH 7.31 (7.30-7.42)
[2016-05-03] MEDS ORDERED: GUAIFENESIN SYRP 200 MG/10 ML UDC PO PRN (00:53)
[2016-05-03] MEDS ORDERED: ACETAMINOPHEN 325 MG TABLET PO PRN (00:53)
[2016-05-03] MEDS ORDERED: LORAZEPAM INJ 2 MG/1 ML VIAL IV PRN ×2 (00:56→08:00)
[2016-05-03] MEDS: IPRATROPIUM/ALBUTEROL 0.5-2.5 MG/3 ML AMPUL NEB SCH ×4 (02:28→19:45)
[2016-05-03 03:12] LABS: CREATINE KINASE MB 18.2 ng/mL (<4.55)
[2016-05-03 03:29] LABS: TROPONIN I 0.317 ng/mL
--- NOTE | 2016-05-03 04:54 | PDOC H&P ---
History of Present Illness Admission Date/PCP: 05/03/16 00:53 CAROLINA KERNS MD Patient complains of: Shortness of breath History of Present Illness: LIZABETH MICHAELS is a 75 year old male with a past medical history of alcohol dependence, COPD deafness and recurrent falls. Who was hospitalized yesterday for COPD exacerbation, hyponatremia and alcohol withdrawal but left AGAINST MEDICAL ADVICE 12 hours ago. He returns after noted by family members to be short of breath and difficult to arouse and brought to the emergency room for evaluation where he is in respiratory distress with a cough producing copious amounts of purulent material, appearing intoxicated and smelling of alcohol. Labs showed improvement of hyponatremia, leukocytosis and Imaging reveals bilateral infiltrates he started on DuoNeb and BiPAP he is IVCed and referred to the hospitalist for admission. Past Medical History Pulmonary Medical History: Reports: Chronic Obstructive Pulmonary Disease (COPD) , Pneumonia Psychiatric Medical History: Reports: Alcohol Dependency Denies: Depression Social History Information Source: [facility] Records Lives with: Family Smoking Status: Current Every Day Smoker Frequency of Alcohol Use: Heavy Hx Recreational Drug Use: No Hx Prescription Drug Abuse: No - Advance Directive Resuscitation Status: Full Code Family History Family History: Other - Unobtainable Parental Family History Reviewed: Yes - unobtainable Children Family History Reviewed: Yes Sibling(s) Family History Reviewed.: Yes Medication/Allergy Home Medications: Albuterol Sulfate [Proair HFA] 2 puff IH Q6 04/23/15 Docusate Sodium [Colace 100 mg Capsule] 100 mg PO BID capsule 05/01/15 Folic Acid 1 mg PO DAILY #30 tablet 05/01/15 Lansoprazole [Prevacid 30 mg Odt Tablet] 30 mg PO Q6AM tab.rap. 05/01/15 Multivitamin [Multivitamins] 1 each PO DAILY #30 capsule 05/01/15 Risperidone [Risperdal 1 mg Tablet] 1 mg PO QHS tablet 05/01/15 Thiamine HCl [Thiamine 100 mg Tablet] 100 mg PO DAILY #30 tablet 05/01/15 Trazodone HCl [Desyrel 50 mg Tablet] 50 mg PO QHS tablet 05/01/15 Cephalexin Monohydrate [Keflex 500 mg Capsule] 500 mg PO QID #20 capsule Allergies/Adverse Reactions: No Known Allergies Allergy (Unverified 04/23/15 14:44) Review of Systems ROS unobtainable: Due to mental status - Encephalopathic Physical Exam Vital Signs: Temp Pulse Resp BP Pulse Ox 17 96/64 L 100 05/03/16 04:01 05/03/16 04:01 05/03/16 04:01 General appearance: PRESENT: disheveled, hard of hearing, severe distress, thin Head exam: PRESENT: atraumatic, normocephalic Eye exam: PRESENT: conjunctiva pink, EOMI, PERRLA. ABSENT: scleral icterus Ear exam: PRESENT: normal external ear exam Mouth exam: PRESENT: dry mucosa Neck exam: ABSENT: carotid bruit, JVD, lymphadenopathy, thyromegaly Respiratory exam: PRESENT: accessory muscle use, crackles, prolonged expiratory phas, rales, retraction, rhonchi, symmetrical, tachypnea. ABSENT: chest wall tenderness, stridor Cardiovascular exam: PRESENT: RRR. ABSENT: diastolic murmur, rubs, systolic murmur Pulses: PRESENT: normal dorsalis pedis pul Vascular exam: PRESENT: normal capillary refill GI/Abdominal exam: PRESENT: normal bowel sounds, soft. ABSENT: distended, guarding, mass, organolmegaly, rebound, tenderness Rectal exam: PRESENT: deferred Extremities exam: PRESENT: full ROM. ABSENT: calf tenderness, clubbing, pedal edema Neurological exam: PRESENT: altered, oriented to person, CN II-XII grossly intact. ABSENT: motor sensory deficit Psychiatric exam: PRESENT: unusual affect Skin exam: PRESENT: abrasion, dry, erythema, skin tears, other - Extensive abrasions, ecchymosis and skin tears of various stages of healing to all 4 extremities Results Impressions: Chest X-Ray 05/02/16 18:55 IMPRESSION: New patchy airspace disease right mid lung concerning for developing pneumonia. Recommend followup radiographs 4 to 6 weeks to ensure resolution. Head CT 05/03/16 00:00 IMPRESSION: MILD CHRONIC CHANGES OF ATROPHY AND MICROVASCULAR ISCHEMIA. NO ACUTE PROCESS. Assessment & Plan - Diagnosis (1) Pneumonia Qualifiers: Pneumonia type: due to unspecified organism Laterality: right Lung location: middle lobe of lung Qualified Code(s): J18.1 - Lobar pneumonia , unspecified organism Is this a current diagnosis for this admission?: YesPlan: Worsening chest x-ray from 24 hours prior likely secondary to hydration he'll be admitted to monitored bed with a pneumonia care set with DuoNeb, empiric cefepime, Levaquin, BiPAP and aggressive pulmonary toilet (2) Alcohol dependence Is this a current diagnosis for this admission?: YesPlan: Anticipating alcohol withdrawal he is placed on thiamine folate and Ativan as well as IVCed given poor insight (3) Falls Is this a current diagnosis for this admission?: YesPlan: Unclear if patient has falling while intoxicated or encephalopathic with Warnicke's he'll have thiamine and folate and physical therapy consultation (4) Hyponatremia Is this a current diagnosis for this admission?: YesPlan: Improved following normal saline resuscitation follow-up chemistry ordered (5) Rhabdomyolysis Is this a current diagnosis for this admission?: YesPlan: Secondary to recurrent falls, avoid dehydration repeat serial cardiac enzymes (6) Elevated LFTs Is this a current diagnosis for this admission?: YesPlan: Likely multifactorial secondary alcohol and rhabdomyolysis, avoid hepatotoxic drugs and doses, hydration and continue supportive measures with reevaluation of labs (7) Elevated troponin Is this a current diagnosis for this admission?: YesPlan: Likely secondary to rhabdomyolysis I will initiate aspirin correction of the underlying COPD exacerbation and evaluate EKG and repeat cardiac enzymes - Time Time Spent: 50 to 70 Minutes - Inpatient Certification Medical Necessity: Need Close Monitoring Due to Risk of Patient Decompensation
[2016-05-03] MEDS ORDERED: NORMAL SALINE 1000 ML 1,000 ML IV ONE (05:13)
[2016-05-03 06:26] LABS: ABSOLUTE LYMPHOCYTES (AUTO) 0.4 10^3/uL (0.5-4.7); ABSOLUTE MONOCYTES (AUTO) 0.2 10^3/uL (0.1-1.4); BASOPHILS % (AUTO) 0.2 % (0-2); HEMATOCRIT 27.1 % (37.9-51.0); HEMOGLOBIN 9.2 g/dL (13.5-17.0); HGB HCT DIFFERENCE 0.5; LYMPHOCYTES % (AUTO) 5.1 % (13-45); MEAN CORPUSCULAR HEMOGLOBIN 28.4 pg (27.0-33.4); MEAN CORPUSCULAR VOLUME 84 fl (80-97); MONOCYTES % (AUTO) 2.9 % (3-13); RED BLOOD COUNT 3.24 10^6/uL (4.35-5.55); SEGMENTED NEUTROPHILS % (AUTO) 91.8 % (42-78); WHITE BLOOD COUNT 7.6 10^3/uL (4.0-10.5)
[2016-05-03 06:48] LABS: ALANINE AMINOTRANSFERASE 266 U/L (21-72); ALBUMIN 2.4 g/dL (3.5-5.0); ALKALINE PHOSPHATASE 126 U/L (38-126); ANION GAP 10 (5-19); ASPARTATE AMINO TRANSFERASE 329 U/L (17-59); BILIRUBIN,DIRECT 0.2 mg/dL (0.0-0.4); BILIRUBIN,TOTAL 0.2 mg/dL (0.2-1.3); BLOOD UREA NITROGEN 23 mg/dL (7-20); CALCIUM 8.3 mg/dL (8.4-10.2); CARBON DIOXIDE 20 mmol/L (22-30); CHLORIDE 104 mmol/L (98-107); CREATININE RESULT 1.07 mg/dL (0.52-1.25); GLUCOSE 110 mg/dL (75-110); POTASSIUM 4.2 mmol/L (3.6-5.0); SODIUM 133.6 mmol/L (137-145); TOTAL PROTEIN 5.3 g/dL (6.3-8.2)
[2016-05-03 06:52] LABS: CREATINE KINASE MB 12.7 ng/mL (<4.55)
[2016-05-03 06:59] LABS: CREATINE KINASE 2104 U/L (55-170)
[2016-05-03 07:03] LABS: TROPONIN I 0.983 ng/mL
[2016-05-03] MEDS ORDERED: ALBUTEROL SULFATE 0.083% NEB 2.5 MG/3 ML AMPUL NEB PRN (07:59)
--- NOTE | 2016-05-03 08:15 | EKG REPORT ---
SEVERITY:- ABNORMAL ECG - SINUS RHYTHM MULTIPLE ATRIAL PREMATURE COMPLEXES BORDERLINE ST DEPRESSION, ANTEROLATERAL LEADS : Confirmed by: North Fletcher MD 03-May-2016 08:14:44
[2016-05-03] MEDS: HEPARIN SOD (PORCINE) 5,000 UNIT/ML 1 ML SYRINGE SUBCUT SCH ×3 (09:36→21:54)
[2016-05-03] MEDS: GUAIFENESIN 600 MG TABLET.SA PO SCH ×2 (09:52→22:08)
[2016-05-03 09:53] LABS: FOLATE 3.95 ng/mL (>2.76)
[2016-05-03] MEDS: LEVOFLOXACIN 750 MG/D5W RTU 750 MG/150 ML RTUPB IV SCH (09:54)
[2016-05-03] MEDS ORDERED: CEFEPIME 2 GM/D5W RTU 2 GM/50 ML RTUPB IV SCH (10:00)
[2016-05-03] MEDS: THIAMINE HCL 100 MG, FOLIC ACID 1 MG in NORMAL SALINE 50 ML IV SCH (11:16)
[2016-05-03] MEDS ORDERED: CEFEPIME HCL 2 GM in DEXTROSE 5%-WATER 50 ML IV ONE (11:30)
[2016-05-03] MEDS ORDERED: INFLUENZA ADLT QUAD (36MOS+) 2016-17 VAC 0.5 ML SYR IM PRN (13:02)
[2016-05-03 13:06] LABS: CREATINE KINASE MB 10.9 ng/mL (<4.55); TROPONIN I 0.801 ng/mL
[2016-05-03] MEDS: LORAZEPAM INJ 2 MG/1 ML VIAL IV PRN ×4 (13:22→23:20)
[2016-05-03] MEDS ORDERED: NORMAL SALINE 1000 ML 1,000 ML IV PRN (16:35)
--- NOTE | 2016-05-03 16:36 | PDOC PROGRESS REPORT ---
Subjective Progress Note for:: 05/03/16 Subjective:: Patient has no complaints. That being said review of systems and history is somewhat unreliable as patient has no idea where he is and why he is here. However he specifically denies chest pain, shortness of breath, fever, chills, somatic pain, abdominal pain. Physical Exam Vital Signs: Temp Pulse Resp BP Pulse Ox 97.5 F 89 25 H 107/48 L 94 05/03/16 12:17 05/03/16 13:43 05/03/16 13:43 05/03/16 12:17 05/03/16 09:36 Intake & Output 05/02/16 05/03/16 05/04/16 06:59 06:59 06:59 Weight 58.1 kg GENERAL: No acute distress, cachectic, disheveled HEENT: Conjunctiva clear, nonicteric, moist mucous membranes, no JVD, midline trachea RESPIRATORY: Clear to auscultation bilaterally, no wheezes, no rhonchi CARDIAC: Regular rate and rhythm, no murmurs/gallops/rubs ABDOMEN: Soft, nondistended, nontender, positive bowel sounds, no rebound, no guarding EXTREMETIES: No edema, cyanosis, clubbing NEUROLOGIC: Alert, oriented to person only, CN's grossly intact, no focal deficits SKIN: No rash, wounds PSYCH: Normal mood, normal affect Results Laboratory Results: 05/03/16 06:16 05/03/16 06:16 05/03/16 05/03/16 05/03/16 06:16 06:16 06:16 WBC 7.6 RBC 3.24 L Hgb 9.2 L Hct 27.1 L MCV 84 MCH 28.4 MCHC 34.0 RDW 17.0 H Plt Count 290 Seg Neutrophils % 91.8 H Lymphocytes % 5.1 L Monocytes % 2.9 L Eosinophils % 0.0 Basophils % 0.2 Absolute Neutrophils 7.0 Absolute Lymphocytes 0.4 L Absolute Monocytes 0.2 Absolute Eosinophils 0.0 Absolute Basophils 0.0 Retic Count (auto) 1.13 Absolute Retic 0.037 Sodium 133.6 L Potassium 4.2 Chloride 104 Carbon Dioxide 20 L Anion Gap 10 BUN 23 H Creatinine 1.07 Est GFR ( Amer) > 60 Est GFR (Non-Af Amer) > 60 Glucose 110 Calcium 8.3 L Iron TIBC % Saturation Ferritin Total Bilirubin 0.2 AST 329 H ALT 266 H Alkaline Phosphatase 126 Total Protein 5.3 L Albumin 2.4 L Vitamin B12 Folate 05/03/16 06:16 WBC RBC Hgb Hct MCV MCH MCHC RDW Plt Count Seg Neutrophils % Lymphocytes % Monocytes % Eosinophils % Basophils % Absolute Neutrophils Absolute Lymphocytes Absolute Monocytes Absolute Eosinophils Absolute Basophils Retic Count (auto) Absolute Retic Sodium Potassium Chloride Carbon Dioxide Anion Gap BUN Creatinine Est GFR ( Amer) Est GFR (Non-Af Amer) Glucose Calcium Iron < 10.1 L TIBC 195 L % Saturation UNABLE TO CALCULATE Ferritin 1070.00 H Total Bilirubin AST ALT Alkaline Phosphatase Total Protein Albumin Vitamin B12 887.0 Folate 3.95 05/03/16 05/03/16 05/03/16 06:16 06:16 12:20 Creatine Kinase 2104 H 1856 H CK-MB (CK-2) 12.70 H Troponin I 0.983 05/03/16 12:20 Creatine Kinase CK-MB (CK-2) 10.90 H Troponin I 0.801 Impressions: Chest X-Ray 05/02/16 18:55 IMPRESSION: New patchy airspace disease right mid lung concerning for developing pneumonia. Recommend followup radiographs 4 to 6 weeks to ensure resolution. Head CT 05/03/16 00:00 IMPRESSION: MILD CHRONIC CHANGES OF ATROPHY AND MICROVASCULAR ISCHEMIA. NO ACUTE PROCESS. Assessment & Plan - Diagnosis (1) Respiratory distress Is this a current diagnosis for this admission?: YesPlan: Secondary to COPD and pneumonia. Continue oxygen supplementation. (2) SIRS (systemic inflammatory response syndrome) Is this a current diagnosis for this admission?: YesPlan: Secondary to pneumonia. (3) Pneumonia Qualifiers: Pneumonia type: due to unspecified organism Laterality: right Lung location: middle lobe of lung Qualified Code(s): J18.1 - Lobar pneumonia , unspecified organism Is this a current diagnosis for this admission?: YesPlan: Likely bacterial. Continue IV Levaquin and IV cefepime initiated in the emergency department. Check blood cultures and sputum cultures. (4) COPD exacerbation Is this a current diagnosis for this admission?: YesPlan: Prednisone. Albuterol nebulizer treatments every 6 hours when necessary (5) Alcohol dependence Is this a current diagnosis for this admission?: YesPlan: Thiamine. When necessary Ativan. (6) Anemia Qualifiers: Anemia type: iron deficiency Is this a current diagnosis for this admission?: YesPlan: Check Hemoccult of stool. Monitor H&H for stability. Start iron supplementation. (7) Elevated LFTs Is this a current diagnosis for this admission?: YesPlan: Secondary to heavy alcohol abuse. (8) Elevated troponin Is this a current diagnosis for this admission?: YesPlan: EKG shows lateral ST depression. Consult cardiology. (9) Rhabdomyolysis Is this a current diagnosis for this admission?: YesPlan: Continue IV fluids of normal saline at 150ml/hour. Repeat CPK level in the morning (10) Deafness Is this a current diagnosis for this admission?: Yes - Time Time Spent with patient: 35 or more minutes
[2016-05-03] MEDS ORDERED: OXYCODONE HCL IR 5 MG TABLET PO PRN (17:59)
--- NOTE | 2016-05-03 18:16 | PDOC CONSULTATION ---
Consultation Consult Date: 05/03/16 Attending physician:: JIGAR ROMERO Consult reason:: Abnormal troponin I History of Present Illness Admission Date/PCP: 05/03/16 00:53 CAROLINA KERNS MD Patient complains of: Generalized weakness History of Present Illness: LIZABETH MICHAELS is a 75 year old male with a past medical history of alcohol dependence, COPD deafness and recurrent falls, was hospitalized yesterday for COPD exacerbation, hyponatremia and alcohol withdrawal but left AGAINST MEDICAL ADVICE 12 hours ago. He returns after noted by family members to be short of breath and difficult to arouse and brought to the emergency room for evaluation where he is in respiratory distress with a cough producing copious amounts of purulent material, appearing intoxicated and smelling of alcohol. Labs showed improvement of hyponatremia, leukocytosis and Imaging reveals bilateral infiltrates he started on DuoNeb and BiPAP he is IVCed and referred to the hospitalist for admission. Subsequently patient was noted to have troponin I elevation in the non-STEMI range and also some EKG changes. I was therefore asked to evaluate this patient. This history was confirmed by chart review and by talking to the nurses and hospitalist. Patient himself not being able to be interviewed because he seems very lethargic and not able to speak much. Past Medical History Pulmonary Medical History: Reports: Chronic Obstructive Pulmonary Disease (COPD) , Pneumonia Psychiatric Medical History: Reports: Alcohol Dependency, Depression Social History Information Source: [facility] Records Lives with: Family Smoking Status: Current Every Day Smoker Frequency of Alcohol Use: Heavy Hx Recreational Drug Use: No Drugs: None Hx Prescription Drug Abuse: No - Advance Directive Resuscitation Status: Full Code Family History Family History: Reviewed & Not Pertinent, Other - Unobtainable Parental Family History Reviewed: Yes Children Family History Reviewed: NA Sibling(s) Family History Reviewed.: Yes Medication/Allergy Home Medications: Albuterol Sulfate [Proair HFA] 2 puff IN Q6HP PRN 05/03/16 Allergies/Adverse Reactions: No Known Allergies Allergy (Unverified 04/23/15 14:44) Review of Systems ROS unobtainable: Due to mental status Physical Exam Vital Signs: Temp Pulse Resp BP Pulse Ox 97.9 F 86 22 H 102/71 73 L 05/03/16 16:06 05/03/16 16:06 05/03/16 16:06 05/03/16 16:06 05/03/16 16:06 Intake & Output 05/02/16 05/03/16 05/04/16 06:59 06:59 06:59 Weight 58.1 kg Exam: GENERAL: well-nourished and in no acute distress. Patient is alert but not oriented to place time or person. HEAD: Atraumatic, normocephalic. EYES: Pupils equal round and reactive to light, extraocular movements intact, sclera anicteric, conjunctiva are normal. ENT: TMs normal, nares patent, oropharynx clear without exudates. Moist mucous membranes. No oral ulcerations or bleeding gums noted NECK: supple without lymphadenopathy or JVD. Trachea is central. No cervical or axillary lymphadenopathy noted. Carotids are 2+ LUNGS: Breath sounds bibasilar fine crackles at bases. No significant dullness noted. CHEST: Palpation of chest wall shows no significant chest wall tenderness. 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 ABDOMEN: Soft, no significant tenderness appreciated, normoactive bowel sounds. No guarding, no rebound. No rigidity noted . No masses appreciated. EXTREMITIES: Pedal pulses are 1-2+, no calf tenderness noted, Trace + pedal edema noted. No clubbing or cyanosis. NEUROLOGICAL: Patient is alert but is not able to participate in neurological exam because of patient's current mental status PSYCH: Patient cannot participate in a neurologic and psych exam because of the patient's current mental status SKIN: No significant ecchymosis, rash, ulcerations or signs of pruritus noted. MUSCULOSKELETAL EXAM: No significant joint swelling noted. Results Laboratory Results: 05/03/16 06:16 05/03/16 06:16 05/03/16 05/03/16 05/03/16 06:16 06:16 06:16 WBC 7.6 RBC 3.24 L Hgb 9.2 L Hct 27.1 L MCV 84 MCH 28.4 MCHC 34.0 RDW 17.0 H Plt Count 290 Seg Neutrophils % 91.8 H Lymphocytes % 5.1 L Monocytes % 2.9 L Eosinophils % 0.0 Basophils % 0.2 Absolute Neutrophils 7.0 Absolute Lymphocytes 0.4 L Absolute Monocytes 0.2 Absolute Eosinophils 0.0 Absolute Basophils 0.0 Retic Count (auto) 1.13 Absolute Retic 0.037 Sodium 133.6 L Potassium 4.2 Chloride 104 Carbon Dioxide 20 L Anion Gap 10 BUN 23 H Creatinine 1.07 Est GFR ( Amer) > 60 Est GFR (Non-Af Amer) > 60 Glucose 110 Calcium 8.3 L Iron TIBC % Saturation Ferritin Total Bilirubin 0.2 AST 329 H ALT 266 H Alkaline Phosphatase 126 Total Protein 5.3 L Albumin 2.4 L Vitamin B12 Folate 05/03/16 06:16 WBC RBC Hgb Hct MCV MCH MCHC RDW Plt Count Seg Neutrophils % Lymphocytes % Monocytes % Eosinophils % Basophils % Absolute Neutrophils Absolute Lymphocytes Absolute Monocytes Absolute Eosinophils Absolute Basophils Retic Count (auto) Absolute Retic Sodium Potassium Chloride Carbon Dioxide Anion Gap BUN Creatinine Est GFR ( Amer) Est GFR (Non-Af Amer) Glucose Calcium Iron < 10.1 L TIBC 195 L % Saturation UNABLE TO CALCULATE Ferritin 1070.00 H Total Bilirubin AST ALT Alkaline Phosphatase Total Protein Albumin Vitamin B12 887.0 Folate 3.95 05/03/16 05/03/16 05/03/16 06:16 06:16 12:20 Creatine Kinase 2104 H 1856 H CK-MB (CK-2) 12.70 H Troponin I 0.983 05/03/16 12:20 Creatine Kinase CK-MB (CK-2) 10.90 H Troponin I 0.801 EKG Comments: Sinus rhythm, APCs, LVH, nonspecific ST segment depression in lateral chest leads Impressions: Chest X-Ray 05/02/16 18:55 IMPRESSION: New patchy airspace disease right mid lung concerning for developing pneumonia. Recommend followup radiographs 4 to 6 weeks to ensure resolution. Head CT 05/03/16 00:00 IMPRESSION: MILD CHRONIC CHANGES OF ATROPHY AND MICROVASCULAR ISCHEMIA. NO ACUTE PROCESS. Assessment & Plan - Diagnosis (1) Elevated troponin Is this a current diagnosis for this admission?: Yes (2) Rhabdomyolysis Is this a current diagnosis for this admission?: Yes (3) Alcohol dependence Is this a current diagnosis for this admission?: Yes (4) COPD exacerbation Is this a current diagnosis for this admission?: Yes (5) Elevated LFTs Is this a current diagnosis for this admission?: Yes (6) Altered mental status Qualifiers: Altered mental status type: disorientation Qualified Code(s): R41.0 - Disorientation, unspecified Is this a current diagnosis for this admission?: Yes - Notes Notes: Elevated troponin I: Patient has borderline EKG changes but probably related to LVH. Elevated troponin I is felt to be secondary to metabolic reason and type II myocardial infarction rather than acute coronary syndrome. At this time will recommend just aspirin therapy, beta liya is relatively contraindicated in view of COPD exacerbation. Continue to cycle cardiac enzymes and EKG. Rhabdomyolysis: Agree with treatment with IV fluids and other measures. COPD exacerbation: Continue with current management plans. Elevated liver function tests: Most likely related to alcoholic hepatitis. However ferritin very high, raises possibility of hemachromatosis. Serum iron very low suggest that patient may be having some internal bleeding therefore may need to be observed very closely. Altered mental status: Most likely related to alcohol intoxication/withdrawal. General debility: Patient seems to be in poor health status as a whole. Overall prognosis is guarded. - Time Time Spent: 30 to 50 Minutes - CODE STATUS was discussed, patient remains full code. Surrogate decision-maker not identified. Multiple medical problems were addressed.More than 50% of the time spent coordinating care, discussing management plans with involved caregivers. Management plans discussed with involved personnels. Medical decision making was of moderate complexity. Medications reviewed and adjusted accordingly: Yes
[2016-05-03 18:52] LABS: CREATINE KINASE MB 11.2 ng/mL (<4.55); TROPONIN I 0.777 ng/mL
[2016-05-03] MEDS ORDERED: ASPIRIN 81 MG TABLET, ENT COATED PO ONE (19:00)
--- NOTE | 2016-05-03 20:25 | XCELERA REPORT ---
[address] [address] Transthoracic Echocardiogram Report Name: LIZABETH MICHAELS Age: 75 yrs Gender: Male : 1940 Patient Status: Inpatient Patient Location: [id number]\S\309\S\A Study Date: 05/03/2016 03:23 PM Height: 71 in Weight: 128 lb BSA: 1.7 m2 Procedure: A complete two-dimensional transthoracic echocardiogram was performed (2D, M-mode, spectral and color flow Doppler). The study was technically difficult with many images being suboptimal in quality. Reason For Study: , CHF Ordering Physician: JESSICA HACKETT Performed By: Elo Rodríguez Interpretation Summary The left ventricular ejection fraction is within normal limits. There is mild concentric left ventricular hypertrophy. The left ventricle is grossly normal size. Doppler measurements suggest impaired left ventricular relaxation, which is associated with grade I/IV or mild diastolic dysfunction Wall motion cannot be accurately commented on, but no definite regional wall motion abnormalities noted. The right ventricle is mildly dilated. The left atrium is normal. The right atrium is normal. There is no mitral valve stenosis. There is a trace amount of mitral regurgitation There is a trace amount of aortic regurgitation There is a trace or physiologic amount of tricuspid regurgitation Tricuspid regurgitation jet envelope not well defined to measure RV systolic pressure accurately. The aortic root is not well visualized. The inferior vena cava was not visualized There is no pericardial effusion. MMode/2D Measurements \T\ Calculations RVDd: 2.4 cm LVIDd: 4.1 cm FS: 35.4 % Ao root diam: 2.6 cm IVSd: 0.99 cm LVIDs: 2.7 cm EDV(Teich): 74.9 ml LVPWd: 1.0 cm ESV(Teich): 26.0 ml Ao root area: 5.4 cm2 EF(Teich): 65.3 % LA dimension: 3.7 cm Doppler Measurements \T\ Calculations MV E max giovanny: MV P1/2t max giovanny: Ao V2 max: LV V1 max P.4 cm/sec 85.9 cm/sec 114.0 cm/sec 3.3 mmHg MV A max giovanny: MV P1/2t: 56.7 msec Ao max PG: LV V1 max: 62.2 cm/sec 5.2 mmHg 90.8 cm/sec MV E/A: 1.4 MVA(P1/2t): 3.9 cm2 MV dec slope: 443.9 cm/sec2 MV dec time: 0.19 sec PA V2 max: TR max giovanny: 101.7 cm/sec 295.9 cm/sec PA max PG: TR max P.0 mmHg 4.1 mmHg Left Ventricle The left ventricle is grossly normal size. There is mild concentric left ventricular hypertrophy. The left ventricular ejection fraction is within normal limits. Doppler measurements suggest impaired left ventricular relaxation, which is associated with grade I/IV or mild diastolic dysfunction. Wall motion cannot be accurately commented on, but no definite regional wall motion abnormalities noted. Right Ventricle The right ventricle is mildly dilated. There is normal right ventricular wall thickness. The right ventricular systolic function is normal. Atria The right atrium is normal. The left atrium is normal. Interarterial septum not well visualized and not well dopplered. Cannot comment on ASD/PFO presence. Mitral Valve The mitral valve is grossly normal. There is no mitral valve stenosis. There is a trace amount of mitral regurgitation. Aortic Valve The aortic valve is not well visualized secondary to technical limitations. There is no aortic valve stenosis. There is a trace amount of aortic regurgitation. Tricuspid Valve The tricuspid valve is not well visualized, but is grossly normal. There is no tricuspid stenosis. There is a trace or physiologic amount of tricuspid regurgitation. Tricuspid regurgitation jet envelope not well defined to measure RV systolic pressure accurately. Pulmonic Valve The pulmonic valve is not well visualized. Great Vessels The aortic root is not well visualized. The inferior vena cava was not visualized. Effusions There is no pericardial effusion. : JESSICA HACKETT > Jessica Hackett
[2016-05-03] MEDS ORDERED: ASPIRIN 300 MG SUPP, RECTAL PR ONE (21:00)
[2016-05-03] MEDS: CEFEPIME HCL 2 GM in DEXTROSE 5%-WATER 50 ML IV SCH (21:54)
[2016-05-04] MEDS: IPRATROPIUM/ALBUTEROL 0.5-2.5 MG/3 ML AMPUL NEB SCH ×4 (02:31→19:50)
[2016-05-04] MEDS: LORAZEPAM INJ 2 MG/1 ML VIAL IV PRN ×4 (04:15→17:04)
[2016-05-04 05:28] LABS: ABSOLUTE BASOPHILS # (AUTO) 0.1 10^3/uL (0.0-0.2); ABSOLUTE LYMPHOCYTES (AUTO) 1.1 10^3/uL (0.5-4.7); ABSOLUTE MONOCYTES (AUTO) 0.4 10^3/uL (0.1-1.4); ABSOLUTE NEUT (AUTO) 9.3 10^3/uL (1.7-8.2); BASOPHILS % (AUTO) 1.4 % (0-2); HEMATOCRIT 29.7 % (37.9-51.0); HGB HCT DIFFERENCE 0.3; LYMPHOCYTES % (AUTO) 9.9 % (13-45); MEAN CORPUSCULAR HEMOGLOBIN 28.1 pg (27.0-33.4); MEAN CORPUSCULAR HGB CONC 33.6 g/dL (32.0-36.0); MEAN CORPUSCULAR VOLUME 84 fl (80-97); MONOCYTES % (AUTO) 3.5 % (3-13); RED BLOOD COUNT 3.55 10^6/uL (4.35-5.55); RED CELL DISTRIBUTION WIDTH 17.3 % (11.5-14.0); SEGMENTED NEUTROPHILS % (AUTO) 85.2 % (42-78); WHITE BLOOD COUNT 10.9 10^3/uL (4.0-10.5)
[2016-05-04] MEDS: HEPARIN SOD (PORCINE) 5,000 UNIT/ML 1 ML SYRINGE SUBCUT SCH ×3 (05:33→21:34)
[2016-05-04 05:47] LABS: ALANINE AMINOTRANSFERASE 232 U/L (21-72); ALBUMIN 2.8 g/dL (3.5-5.0); ALKALINE PHOSPHATASE 135 U/L (38-126); ANION GAP 10 (5-19); ASPARTATE AMINO TRANSFERASE 321 U/L (17-59); BILIRUBIN,DIRECT 0.2 mg/dL (0.0-0.4); BILIRUBIN,TOTAL 0.4 mg/dL (0.2-1.3); BLOOD UREA NITROGEN 20 mg/dL (7-20); CALCIUM 8.8 mg/dL (8.4-10.2); CARBON DIOXIDE 22 mmol/L (22-30); CHLORIDE 109 mmol/L (98-107); CHOLESTEROL 107.73 mg/dL (0-200); CREATINE KINASE 1525 U/L (55-170); CREATININE RESULT 1.14 mg/dL (0.52-1.25); Direct HDL 40 mg/dL (>40); GLUCOSE 79 mg/dL (75-110); SODIUM 140.9 mmol/L (137-145); TOTAL PROTEIN 6.2 g/dL (6.3-8.2); TRIGLYCERIDES 116 mg/dL (<150)
[2016-05-04 06:03] LABS: DIRECT LDL < 30 mg/dL (<100)
[2016-05-04] MEDS ORDERED: NORMAL SALINE 1000 ML 1,000 ML IV PRN ×2 (07:31→11:04)
[2016-05-04] MEDS ORDERED: ASPIRIN 81 MG TABLET, ENT COATED PO SCH (10:00)
[2016-05-04] MEDS: CEFEPIME HCL 2 GM in DEXTROSE 5%-WATER 50 ML IV SCH ×2 (10:00→21:35)
[2016-05-04] MEDS: PANTOPRAZOLE SODIUM 40 MG VIAL IV SCH (10:00)
[2016-05-04] MEDS ORDERED: PREDNISONE 20 MG TABLET PO SCH (10:00)
[2016-05-04] MEDS: THIAMINE HCL 100 MG, FOLIC ACID 1 MG in NORMAL SALINE 50 ML IV SCH (10:00)
[2016-05-04] MEDS: GUAIFENESIN 600 MG TABLET.SA PO SCH ×2 (10:00→21:39)
[2016-05-04] MEDS ORDERED: ASPIRIN 300 MG SUPP, RECTAL PR SCH (10:00)
[2016-05-04] MEDS: FERROUS SULFATE 325 MG TABLET PO SCH (10:00)
[2016-05-04] MEDS ORDERED: FUROSEMIDE INJ/PF 20 MG/2 ML SDV IV ONE (11:01)
[2016-05-04] MEDS: ASPIRIN 81 MG TABLET, ENT COATED PO SCH (11:16)
[2016-05-04] MEDS: LEVOFLOXACIN 750 MG/D5W RTU 750 MG/150 ML RTUPB IV SCH (11:25)
[2016-05-04] MEDS ORDERED: METHYLPREDNISOLONE INJ 125 MG/2 ML SDV IV ONE (12:00)
--- NOTE | 2016-05-04 12:29 | PDOC PROGRESS REPORT ---
Subjective Progress Note for:: 05/04/16 Subjective:: Patient seems to be doing about the same. He still very confused and somewhat obtunded. He was noted to be short of breath. Chest x-ray suggests CHF on top of COPD. BNP has come back elevated. Patient is maintaining sinus rhythm. Cardiac enzymes in the suggestive range but trending down. System review: Currently not obtainable Medications reviewed.. Physical Exam Vital Signs: Temp Pulse Resp BP Pulse Ox 99.4 F 110 H 28 H 112/99 H 95 05/04/16 08:05 05/04/16 08:05 05/04/16 12:06 05/04/16 08:05 05/04/16 12:06 Intake & Output 05/03/16 05/04/16 05/05/16 06:59 06:59 06:59 Intake Total 2058 Balance 2058 Weight 60.1 kg Exam: GENERAL: well-nourished and in no acute distress. Patient not oriented to place time or person. Patient is very lethargic HEAD: Atraumatic, normocephalic. EYES: Pupils equal round and reactive to light, extraocular movements intact, sclera anicteric, conjunctiva are normal. ENT: TMs normal, nares patent, oropharynx clear without exudates. Moist mucous membranes. No oral ulcerations or bleeding gums noted NECK: supple without lymphadenopathy or JVD. Trachea is central. No cervical or axillary lymphadenopathy noted. Carotids are 2+ LUNGS: Breath sounds bibasilar fine crackles at bases. No significant dullness noted. CHEST: Palpation of chest wall shows no significant chest wall tenderness. 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 ABDOMEN: Soft, no significant tenderness appreciated, normoactive bowel sounds. No guarding, no rebound. No rigidity noted . No masses appreciated. EXTREMITIES: Pedal pulses are 1-2+, no calf tenderness noted, Trace + pedal edema noted. No clubbing or cyanosis. NEUROLOGICAL: Patient is alert but is not able to participate in neurological exam because of patient's current mental status PSYCH: Patient cannot participate in a neurologic and psych exam because of the patient's current mental status SKIN: No significant ecchymosis, rash, ulcerations or signs of pruritus noted. MUSCULOSKELETAL EXAM: No significant joint swelling noted. Results Laboratory Results: 05/04/16 04:39 05/04/16 04:39 05/04/16 05/04/16 04:39 04:39 WBC 10.9 H RBC 3.55 L Hgb 10.0 L Hct 29.7 L MCV 84 MCH 28.1 MCHC 33.6 RDW 17.3 H Plt Count 272 Seg Neutrophils % 85.2 H Lymphocytes % 9.9 L Monocytes % 3.5 Eosinophils % 0.0 Basophils % 1.4 Absolute Neutrophils 9.3 H Absolute Lymphocytes 1.1 Absolute Monocytes 0.4 Absolute Eosinophils 0.0 Absolute Basophils 0.1 Sodium 140.9 Potassium 4.0 Chloride 109 H Carbon Dioxide 22 Anion Gap 10 BUN 20 Creatinine 1.14 Est GFR ( Amer) > 60 Est GFR (Non-Af Amer) > 60 Glucose 79 Calcium 8.8 Total Bilirubin 0.4 AST 321 H ALT 232 H Alkaline Phosphatase 135 H Total Protein 6.2 L Albumin 2.8 L Triglycerides 116 Cholesterol 107.73 LDL Cholesterol Direct < 30 VLDL Cholesterol 23.0 HDL Cholesterol 40 05/03/16 05/03/16 05/03/16 06:16 06:16 12:20 Creatine Kinase 2104 H 1856 H CK-MB (CK-2) 12.70 H Troponin I 0.983 NT-Pro-B Natriuret Pep 05/03/16 05/03/16 05/03/16 12:20 18:10 18:10 Creatine Kinase 1870 H CK-MB (CK-2) 10.90 H 11.20 H Troponin I 0.801 0.777 NT-Pro-B Natriuret Pep 05/04/16 05/04/16 04:39 04:39 Creatine Kinase 1525 H CK-MB (CK-2) Troponin I NT-Pro-B Natriuret Pep 4120 H Impressions: Head CT 05/03/16 00:00 IMPRESSION: MILD CHRONIC CHANGES OF ATROPHY AND MICROVASCULAR ISCHEMIA. NO ACUTE PROCESS. Chest X-Ray 05/04/16 06:00 IMPRESSION: Mildly increased interstitial markings bilaterally, more confluent in the left lung base. Probable small left pleural effusion. Assessment & Plan - Diagnosis (1) Elevated troponin Is this a current diagnosis for this admission?: Yes (2) Rhabdomyolysis Is this a current diagnosis for this admission?: Yes (3) Alcohol dependence Is this a current diagnosis for this admission?: Yes (4) COPD exacerbation Is this a current diagnosis for this admission?: Yes (5) Elevated LFTs Is this a current diagnosis for this admission?: Yes (6) Altered mental status Qualifiers: Altered mental status type: disorientation Qualified Code(s): R41.0 - Disorientation, unspecified Is this a current diagnosis for this admission?: Yes (7) Congestive heart failure Qualifiers: Congestive heart failure type: diastolic Congestive heart failure chronicity: acute Qualified Code(s): I50.31 - Acute diastolic (congestive ) heart failure Is this a current diagnosis for this admission?: Yes (8) Atrial fibrillation with RVR Is this a current diagnosis for this admission?: Yes - Notes Notes: Elevated troponin I in the non-STEMI range most likely related to metabolic problems. Patient however may have underlying coronary artery disease. When patient more stable will consider a nuclear stress test. Rhabdomyolysis: Total CK is coming down nicely. Alcohol dependence: Patient seems to be in the some withdrawal. COPD exacerbation: Currently being aggressively treated. Elevated LFTs: Gradually improving. Altered mental status: patient remains obtunded and lethargic. Congestive heart failure: Most likely related to volume infusion in presence of diastolic dysfunction. 2-D echo results reviewed. Recommend reducing IV fluids and observe patient closely. Continue with bilevel therapy. Addendum: 7 PM, patient was seen again. He was noted to be in atrial fibrillation with rapid ventricular response on the monitor. Twelve-lead EKG reviewed and confirmed this. Patient has significant ongoing metabolic problem. It is felt that it's best to start patient on amiodarone bolus and drip protocol. We will also recommend that patient's electrolytes be checked and maintained in normal range. - Time Time with patient: Greater than 35 minutes - CODE STATUS was discussed, patient remains full code. Surrogate decision-maker unchanged. Multiple medical problems were addressed.More than 50% of the time spent coordinating care, discussing management plans with involved caregivers. Management plans discussed with involved personnels. Medical decision making was of moderate complexity. Medications reviewed and adjusted accordingly: Yes
--- NOTE | 2016-05-04 12:34 | PDOC PROGRESS REPORT ---
Subjective Progress Note for:: 05/04/16 Subjective:: Patient has been short of breath and hypoxic requiring BiPAP. He does not respond to questions or commands. Physical Exam Vital Signs: Temp Pulse Resp BP Pulse Ox 99.4 F 110 H 28 H 112/99 H 95 05/04/16 08:05 05/04/16 08:05 05/04/16 12:06 05/04/16 08:05 05/04/16 12:06 Intake & Output 05/03/16 05/04/16 05/05/16 06:59 06:59 06:59 Intake Total 2058 Balance 2058 Weight 60.1 kg Results Laboratory Results: 05/04/16 04:39 05/04/16 04:39 05/04/16 05/04/16 04:39 04:39 WBC 10.9 H RBC 3.55 L Hgb 10.0 L Hct 29.7 L MCV 84 MCH 28.1 MCHC 33.6 RDW 17.3 H Plt Count 272 Seg Neutrophils % 85.2 H Lymphocytes % 9.9 L Monocytes % 3.5 Eosinophils % 0.0 Basophils % 1.4 Absolute Neutrophils 9.3 H Absolute Lymphocytes 1.1 Absolute Monocytes 0.4 Absolute Eosinophils 0.0 Absolute Basophils 0.1 Sodium 140.9 Potassium 4.0 Chloride 109 H Carbon Dioxide 22 Anion Gap 10 BUN 20 Creatinine 1.14 Est GFR ( Amer) > 60 Est GFR (Non-Af Amer) > 60 Glucose 79 Calcium 8.8 Total Bilirubin 0.4 AST 321 H ALT 232 H Alkaline Phosphatase 135 H Total Protein 6.2 L Albumin 2.8 L Triglycerides 116 Cholesterol 107.73 LDL Cholesterol Direct < 30 VLDL Cholesterol 23.0 HDL Cholesterol 40 05/03/16 05/03/16 05/03/16 06:16 06:16 12:20 Creatine Kinase 2104 H 1856 H CK-MB (CK-2) 12.70 H Troponin I 0.983 NT-Pro-B Natriuret Pep 05/03/16 05/03/16 05/03/16 12:20 18:10 18:10 Creatine Kinase 1870 H CK-MB (CK-2) 10.90 H 11.20 H Troponin I 0.801 0.777 NT-Pro-B Natriuret Pep 05/04/16 05/04/16 04:39 04:39 Creatine Kinase 1525 H CK-MB (CK-2) Troponin I NT-Pro-B Natriuret Pep 4120 H Impressions: Head CT 05/03/16 00:00 IMPRESSION: MILD CHRONIC CHANGES OF ATROPHY AND MICROVASCULAR ISCHEMIA. NO ACUTE PROCESS. Chest X-Ray 05/04/16 06:00 IMPRESSION: Mildly increased interstitial markings bilaterally, more confluent in the left lung base. Probable small left pleural effusion. Assessment & Plan - Diagnosis (1) Acute hypoxemic respiratory failure Is this a current diagnosis for this admission?: YesPlan: Continue BiPAP for respiratory support. Check CTA of chest to rule out pulmonary embolism. Decrease IV fluids and give 1 dose of IV Lasix. Continue to treat COPD exacerbation. (2) Encephalopathy Is this a current diagnosis for this admission?: YesPlan: Treat multiple medical problems. Continue supportive care. (3) SIRS (systemic inflammatory response syndrome) Is this a current diagnosis for this admission?: Yes (4) Pneumonia Qualifiers: Pneumonia type: due to unspecified organism Laterality: right Lung location: middle lobe of lung Qualified Code(s): J18.1 - Lobar pneumonia , unspecified organism Is this a current diagnosis for this admission?: YesPlan: Likely bacterial. Continue IV Levaquin and IV cefepime initiated in the emergency department pending blood cultures and sputum cultures. (5) COPD exacerbation Is this a current diagnosis for this admission?: YesPlan: Discontinue prednisone. Start IV Solu-Medrol. Albuterol nebulizer treatments every 6 hours when necessary (6) Alcohol dependence Is this a current diagnosis for this admission?: YesPlan: Thiamine. When necessary Ativan. (7) Anemia Qualifiers: Anemia type: iron deficiency Is this a current diagnosis for this admission?: YesPlan: Check Hemoccult of stool. Monitor H&H for stability. Start iron supplementation. (8) Elevated LFTs Is this a current diagnosis for this admission?: YesPlan: Secondary to heavy alcohol abuse. (9) Elevated troponin Is this a current diagnosis for this admission?: YesPlan: Consult cardiology appreciated. Likely type II non-ST elevation [place] associated with respiratory failure and pneumonia. Echocardiogram with normal EF, grade 1/ 4 diastolic dysfunction. (10) Rhabdomyolysis Is this a current diagnosis for this admission?: YesPlan: Continue IV fluids. Repeat CPK level in the morning (11) Deafness Is this a current diagnosis for this admission?: Yes (12) Nonsustained ventricular tachycardia Is this a current diagnosis for this admission?: YesPlan: Treat acute medical problems. Dr. William of cardiology following. I will defer management to cardiology. - Time Time Spent with patient: 35 or more minutes
--- NOTE | 2016-05-04 18:33 | EKG REPORT ---
SEVERITY:- ABNORMAL ECG - ATRIAL FIBRILLATION, V-RATE 85-155 BORDERLINE PROLONGED QT INTERVAL : Confirmed by: North Fletcher MD 04-May-2016 18:33:13
--- NOTE | 2016-05-04 18:34 | Progress Note ---
Provider Note Provider Note: Case discussed with Dr. William of cardiology. He recommends starting patient on amiodarone drip protocol. Check stat magnesium level.
[2016-05-04] MEDS ORDERED: AMIODARONE HCL 150 MG in DEXTROSE 5%-WATER 100 ML IV ONE (20:00)
[2016-05-04] MEDS ORDERED: DEXTROSE 5%-WATER 500 ML with AMIODARONE HCL 900 MG IV PRN ×2 (20:00)
[2016-05-04] MEDS: METHYLPREDNISOLONE INJ 40 MG/1 ML SDV IV SCH (21:35)
[2016-05-05] MEDS: LORAZEPAM INJ 2 MG/1 ML VIAL IV PRN ×5 (02:12→18:31)
[2016-05-05] MEDS: IPRATROPIUM/ALBUTEROL 0.5-2.5 MG/3 ML AMPUL NEB SCH ×2 (02:19→08:01)
[2016-05-05 05:19] LABS: ABSOLUTE LYMPHOCYTES (AUTO) 0.6 10^3/uL (0.5-4.7); ABSOLUTE MONOCYTES (AUTO) 0.4 10^3/uL (0.1-1.4); ABSOLUTE NEUT (AUTO) 6.7 10^3/uL (1.7-8.2); BASOPHILS % (AUTO) 0.3 % (0-2); HEMATOCRIT 32.9 % (37.9-51.0); HEMOGLOBIN 10.9 g/dL (13.5-17.0); HGB HCT DIFFERENCE -0.2; LYMPHOCYTES % (AUTO) 7.3 % (13-45); MEAN CORPUSCULAR HEMOGLOBIN 27.7 pg (27.0-33.4); MEAN CORPUSCULAR HGB CONC 33.1 g/dL (32.0-36.0); MEAN CORPUSCULAR VOLUME 84 fl (80-97); MONOCYTES % (AUTO) 4.9 % (3-13); RED BLOOD COUNT 3.93 10^6/uL (4.35-5.55); RED CELL DISTRIBUTION WIDTH 17.3 % (11.5-14.0); SEGMENTED NEUTROPHILS % (AUTO) 87.5 % (42-78); WHITE BLOOD COUNT 7.7 10^3/uL (4.0-10.5)
[2016-05-05 05:25] LABS: ALANINE AMINOTRANSFERASE 199 U/L (21-72); ALKALINE PHOSPHATASE 129 U/L (38-126); ANION GAP 13 (5-19); ASPARTATE AMINO TRANSFERASE 246 U/L (17-59); BILIRUBIN,DIRECT 0.4 mg/dL (0.0-0.4); BILIRUBIN,TOTAL 0.5 mg/dL (0.2-1.3); BLOOD UREA NITROGEN 25 mg/dL (7-20); CALCIUM 8.9 mg/dL (8.4-10.2); CARBON DIOXIDE 24 mmol/L (22-30); CHLORIDE 106 mmol/L (98-107); CREATINE KINASE 553 U/L (55-170); CREATININE RESULT 1.25 mg/dL (0.52-1.25); GLUCOSE 151 mg/dL (75-110); MAGNESIUM 2.2 mg/dL (1.6-2.3); POTASSIUM 3.4 mmol/L (3.6-5.0); SODIUM 142.6 mmol/L (137-145); TOTAL PROTEIN 6.5 g/dL (6.3-8.2)
[2016-05-05] MEDS: HEPARIN SOD (PORCINE) 5,000 UNIT/ML 1 ML SYRINGE SUBCUT SCH ×3 (05:34→21:04)
[2016-05-05] MEDS ORDERED: POTASSI CL 20 MEQ/50 ML RIDER 20 MEQ/50 ML RTUPB IV ONE (09:00)
[2016-05-05] MEDS: THIAMINE HCL 100 MG, FOLIC ACID 1 MG in NORMAL SALINE 50 ML IV SCH (09:44)
[2016-05-05] MEDS: METHYLPREDNISOLONE INJ 40 MG/1 ML SDV IV SCH ×2 (09:45→21:04)
[2016-05-05] MEDS: LEVOFLOXACIN 750 MG/D5W RTU 750 MG/150 ML RTUPB IV SCH (09:45)
[2016-05-05] MEDS: PANTOPRAZOLE SODIUM 40 MG VIAL IV SCH (09:45)
[2016-05-05] MEDS: ASPIRIN 81 MG TABLET, ENT COATED PO SCH (09:46)
[2016-05-05] MEDS: CEFEPIME HCL 2 GM in DEXTROSE 5%-WATER 50 ML IV SCH ×2 (09:46→21:04)
[2016-05-05] MEDS: GUAIFENESIN 600 MG TABLET.SA PO SCH ×2 (09:46→20:57)
[2016-05-05] MEDS: FERROUS SULFATE 325 MG TABLET PO SCH (09:46)
--- NOTE | 2016-05-05 12:11 | PDOC PROGRESS REPORT ---
Subjective Progress Note for:: 05/05/16 Subjective:: Patient seems to be doing about the same. He still very confused and somewhat obtunded. He was noted to be short of breath. Chest x-ray suggests CHF on top of COPD. BNP has come back elevated. Patient is maintaining sinus rhythm. Cardiac enzymes in the suggestive range but trending down. Patient converting to sinus rhythm overnight. Liver enzymes are improving. Chest x-ray reviewed suggest COPD System review: Currently not obtainable Medications reviewed.. Physical Exam Vital Signs: Temp Pulse Resp BP Pulse Ox 97.6 F 77 21 H 121/75 96 05/05/16 01:28 05/05/16 11:00 05/05/16 08:01 05/05/16 11:00 05/05/16 08:01 Intake & Output 05/04/16 05/05/16 05/06/16 06:59 06:59 06:59 Intake Total 2058 1620 Balance 2058 162 Weight 60.1 kg 57.9 kg Exam: GENERAL: well-nourished and in no acute distress. Patient is alert but not oriented to place time or person. HEAD: Atraumatic, normocephalic. EYES: Pupils equal round and reactive to light, extraocular movements intact, sclera anicteric, conjunctiva are normal. ENT: TMs normal, nares patent, oropharynx clear without exudates. Moist mucous membranes. No oral ulcerations or bleeding gums noted NECK: supple without lymphadenopathy or JVD. Trachea is central. No cervical or axillary lymphadenopathy noted. Carotids are 2+ LUNGS: Breath sounds bibasilar fine crackles at bases. No significant dullness noted. Occasional wheezes noted CHEST: Palpation of chest wall shows no significant chest wall tenderness. HEART: Home SHOW GIRL, No PSH, 2/6 JUAN FRANCISCO aortic area, 1/6 simmons systolic murmur mitral area, rubs or gallops. ABDOMEN: Soft, no significant tenderness appreciated, normoactive bowel sounds. No guarding, no rebound. No rigidity noted . No masses appreciated. EXTREMITIES: Pedal pulses are 1-2+, no calf tenderness noted, Trace + pedal edema noted. No clubbing or cyanosis. NEUROLOGICAL: Patient is alert but is not able to participate in neurological exam because of patient's current mental status PSYCH: Patient cannot participate in a neurologic and psych exam because of the patient's current mental status SKIN: No significant ecchymosis, rash, ulcerations or signs of pruritus noted. MUSCULOSKELETAL EXAM: No significant joint swelling noted. Results Laboratory Results: 05/05/16 04:32 05/05/16 04:32 05/04/16 05/05/16 05/05/16 18:50 04:32 04:32 WBC 7.7 RBC 3.93 L Hgb 10.9 L Hct 32.9 L MCV 84 MCH 27.7 MCHC 33.1 RDW 17.3 H Plt Count 291 Seg Neutrophils % 87.5 H Lymphocytes % 7.3 L Monocytes % 4.9 Eosinophils % 0.0 Basophils % 0.3 Absolute Neutrophils 6.7 Absolute Lymphocytes 0.6 Absolute Monocytes 0.4 Absolute Eosinophils 0.0 Absolute Basophils 0.0 Sodium 142.6 Potassium 3.4 L Chloride 106 Carbon Dioxide 24 Anion Gap 13 BUN 25 H Creatinine 1.25 Est GFR ( Amer) > 60 Est GFR (Non-Af Amer) 57 L Glucose 151 H Calcium 8.9 Magnesium 2.1 2.2 Total Bilirubin 0.5 AST 246 H ALT 199 H Alkaline Phosphatase 129 H Total Protein 6.5 Albumin 3.0 L 05/03/16 05/03/16 05/03/16 06:16 06:16 12:20 Creatine Kinase 2104 H 1856 H CK-MB (CK-2) 12.70 H Troponin I 0.983 NT-Pro-B Natriuret Pep 05/03/16 05/03/16 05/03/16 12:20 18:10 18:10 Creatine Kinase 1870 H CK-MB (CK-2) 10.90 H 11.20 H Troponin I 0.801 0.777 NT-Pro-B Natriuret Pep 05/04/16 05/04/16 05/05/16 04:39 04:39 04:32 Creatine Kinase 1525 H 553 H CK-MB (CK-2) Troponin I NT-Pro-B Natriuret Pep 4120 H Impressions: Head CT 05/03/16 00:00 IMPRESSION: MILD CHRONIC CHANGES OF ATROPHY AND MICROVASCULAR ISCHEMIA. NO ACUTE PROCESS. Chest/Abdomen CTA 05/04/16 00:00 IMPRESSION: 1. No PE. 2. UIP pattern consistent with pulmonary fibrosis and possible superimposed infection. Clinical correlation is needed. 3. Right liver mass grossly unchanged from 04/24/2015. Chest X-Ray 05/05/16 06:00 IMPRESSION: No interval change. Assessment & Plan - Diagnosis (1) Atrial fibrillation with RVR Is this a current diagnosis for this admission?: Yes (2) Congestive heart failure Qualifiers: Congestive heart failure type: diastolic Congestive heart failure chronicity: acute Qualified Code(s): I50.31 - Acute diastolic (congestive ) heart failure Is this a current diagnosis for this admission?: Yes (3) Elevated troponin Is this a current diagnosis for this admission?: Yes (4) Rhabdomyolysis Is this a current diagnosis for this admission?: Yes (5) Alcohol dependence Is this a current diagnosis for this admission?: Yes (6) COPD exacerbation Is this a current diagnosis for this admission?: Yes (7) Elevated LFTs Is this a current diagnosis for this admission?: Yes (8) Altered mental status Qualifiers: Altered mental status type: disorientation Qualified Code(s): R41.0 - Disorientation, unspecified Is this a current diagnosis for this admission?: Yes - Notes Notes: Paroxysmal atrial fibrillation: Patient currently in sinus rhythm. Recommend amiodarone 200 mg by mouth twice a day for at least a month. Patient would be a poor candidate for any chronic anticoagulation. Elevated troponin I: Will consider nuclear stress test once patient stable. Or this can be performed as an outpatient. Troponin I elevation is probably related to metabolic problem rather than acute coronary syndrome COPD exacerbation: Currently improved. Continue bronchodilator therapy. 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 Liver functions are improving. Congestive heart failure: Chest x-ray shows compensation. Will recommend BNP level. - Time Time with patient: Greater than 35 minutes - CODE STATUS was discussed, patient remains full code. Surrogate decision-maker not identified. Multiple medical problems were addressed.More than 50% of the time spent coordinating care, discussing management plans with involved caregivers. Management plans discussed with involved personnels. Medical decision making was of moderate complexity.
[2016-05-05] MEDS: ALBUTEROL SULFATE 0.083% NEB 2.5 MG/3 ML AMPUL NEB SCH ×2 (13:58→20:56)
--- NOTE | 2016-05-05 14:15 | Physician Advisory Note ---
Physician Advisor ProgressNote .: [facility] medical [facility] for this patient. Physician Advisor Statement: Excellent documentation of accessory muscle use in H&P. Possible documentation opportunities if attending agrees: 1. "Ac hypoxemic resp failure with O2 sats 79-82% on RA initially for EMS, as well as accessory muscle use" [need documentation by attending confirming dx criteria mentioned by ED nursing] 2. "Acute encephalopathy, likely due to " [sepsis? hypoxemia? multifactorial? ...] 3. "Possible sepsis, present on adm, due to pneumonia, ruled out/in" [when there is SIRS & infxn, coders need to know if there was sepsis or not] 4. "RML pneumonia, suspect gram-negative [or: suspect aspiration type] given COPD & alcoholism/AMS" [covering with Leva/cefepime] 5. "acute hyponatremia, likely due to " 6. "Acute rhabdomyolysis, likely due to ___" 7. "suspected protein-calorie malnutrition [state mild, mod, or severe] with BMI __, ____[?wt loss, ?appetite loss, ]" [if possible, give specifics on intake, wt loss, loss of SQ fat & muscle mass, diminished hand real estate sales manager strength, & clinical importance such as (A) nutritional assessment ordered, (B) modified diet or supplements ordered, (C) additional labs ordered, (D) prolonged wound healing time, (E) delayed infxn clearance] Thanks! COREY
[2016-05-05 15:09] LABS: ARTERIAL BLOOD O2 SATURATION 98.1 % (94-98)
[2016-05-05] MEDS: POTASSI CL 20 MEQ/D5-1/2NS 1L 1,000 ML IV PRN (16:12)
--- NOTE | 2016-05-05 16:24 | PDOC PROGRESS REPORT ---
Subjective Progress Note for:: 05/05/16 Subjective:: Patient is now back in sinus rhythm. He remains very encephalopathic and nonresponsive to me. Physical Exam Vital Signs: Temp Pulse Resp BP Pulse Ox 97.6 F 67 19 106/56 L 96 05/05/16 01:28 05/05/16 15:00 05/05/16 13:58 05/05/16 15:00 05/05/16 13:58 Intake & Output 05/04/16 05/05/16 05/06/16 06:59 06:59 06:59 Intake Total 2058 1620 0 Balance 2058 1620 0 Weight 60.1 kg 57.9 kg GENERAL: No acute distress, cachectic, disheveled HEENT: Conjunctiva clear, nonicteric, moist mucous membranes, no JVD, midline trachea RESPIRATORY: Bilateral wheezes CARDIAC: Regular rate and rhythm, no murmurs/gallops/rubs ABDOMEN: Soft, nondistended, nontender, positive bowel sounds, no rebound, no guarding EXTREMETIES: No edema, cyanosis, clubbing NEUROLOGIC: Unresponsive, CN's grossly intact, no focal deficits SKIN: No rash, wounds Results Laboratory Results: 05/05/16 04:32 05/05/16 04:32 05/04/16 05/05/16 05/05/16 18:50 04:32 04:32 WBC 7.7 RBC 3.93 L Hgb 10.9 L Hct 32.9 L MCV 84 MCH 27.7 MCHC 33.1 RDW 17.3 H Plt Count 291 Seg Neutrophils % 87.5 H Lymphocytes % 7.3 L Monocytes % 4.9 Eosinophils % 0.0 Basophils % 0.3 Absolute Neutrophils 6.7 Absolute Lymphocytes 0.6 Absolute Monocytes 0.4 Absolute Eosinophils 0.0 Absolute Basophils 0.0 Carbonic Acid HCO3/H2CO3 Ratio ABG pH ABG pCO2 ABG pO2 ABG HCO3 ABG O2 Saturation ABG Base Excess FiO2 Sodium 142.6 Potassium 3.4 L Chloride 106 Carbon Dioxide 24 Anion Gap 13 BUN 25 H Creatinine 1.25 Est GFR ( Amer) > 60 Est GFR (Non-Af Amer) 57 L Glucose 151 H Calcium 8.9 Magnesium 2.1 2.2 Total Bilirubin 0.5 AST 246 H ALT 199 H Alkaline Phosphatase 129 H Total Protein 6.5 Albumin 3.0 L 05/05/16 14:50 WBC RBC Hgb Hct MCV MCH MCHC RDW Plt Count Seg Neutrophils % Lymphocytes % Monocytes % Eosinophils % Basophils % Absolute Neutrophils Absolute Lymphocytes Absolute Monocytes Absolute Eosinophils Absolute Basophils Carbonic Acid 1.18 HCO3/H2CO3 Ratio 19:1 ABG pH 7.38 ABG pCO2 39.3 ABG pO2 113.2 H ABG HCO3 22.9 ABG O2 Saturation 98.1 H ABG Base Excess -2.0 FiO2 35% Sodium Potassium Chloride Carbon Dioxide Anion Gap BUN Creatinine Est GFR ( Amer) Est GFR (Non-Af Amer) Glucose Calcium Magnesium Total Bilirubin AST ALT Alkaline Phosphatase Total Protein Albumin 05/03/16 05/03/16 05/03/16 06:16 06:16 12:20 Creatine Kinase 2104 H 1856 H CK-MB (CK-2) 12.70 H Troponin I 0.983 NT-Pro-B Natriuret Pep 05/03/16 05/03/16 05/03/16 12:20 18:10 18:10 Creatine Kinase 1870 H CK-MB (CK-2) 10.90 H 11.20 H Troponin I 0.801 0.777 NT-Pro-B Natriuret Pep 05/04/16 05/04/16 05/05/16 04:39 04:39 04:32 Creatine Kinase 1525 H 553 H CK-MB (CK-2) Troponin I NT-Pro-B Natriuret Pep 4120 H Impressions: Head CT 05/03/16 00:00 IMPRESSION: MILD CHRONIC CHANGES OF ATROPHY AND MICROVASCULAR ISCHEMIA. NO ACUTE PROCESS. Chest/Abdomen CTA 05/04/16 00:00 IMPRESSION: 1. No PE. 2. UIP pattern consistent with pulmonary fibrosis and possible superimposed infection. Clinical correlation is needed. 3. Right liver mass grossly unchanged from 04/24/2015. Chest X-Ray 05/05/16 06:00 IMPRESSION: No interval change. Assessment & Plan - Diagnosis (1) Atrial fibrillation with RVR Is this a current diagnosis for this admission?: Yes (2) Acute hypoxemic respiratory failure Is this a current diagnosis for this admission?: YesPlan: Continue BiPAP for respiratory support. Continue to treat COPD exacerbation. (3) Encephalopathy Is this a current diagnosis for this admission?: YesPlan: Treat multiple medical problems. Continue supportive care. Head CT with no acute changes, ammonia level less than 8.7, B-12 level normal, TSH normal. Continue thiamine supplementation. (4) SIRS (systemic inflammatory response syndrome) Is this a current diagnosis for this admission?: YesPlan: Secondary to pneumonia. (5) Pneumonia Qualifiers: Pneumonia type: due to unspecified organism Laterality: right Lung location: middle lobe of lung Qualified Code(s): J18.1 - Lobar pneumonia , unspecified organism Is this a current diagnosis for this admission?: YesPlan: Likely bacterial. Continue IV Levaquin and IV cefepime until clinical status improves. Blood cultures no growth. (6) COPD exacerbation Is this a current diagnosis for this admission?: YesPlan: Continue IV Solu-Medrol. Albuterol nebulizer treatments every 6 hours when necessary (7) Alcohol dependence Is this a current diagnosis for this admission?: YesPlan: Thiamine. When necessary Ativan. (8) Anemia Qualifiers: Anemia type: iron deficiency Is this a current diagnosis for this admission?: YesPlan: Check Hemoccult of stool. Monitor H&H for stability. Continue iron supplementation. (9) Elevated LFTs Is this a current diagnosis for this admission?: YesPlan: Secondary to heavy alcohol abuse. Patient also noted to have right liver mass. This will need further outpatient follow-up. (10) Elevated troponin Is this a current diagnosis for this admission?: YesPlan: Consult cardiology appreciated. Likely type II non-ST elevation [place] associated with respiratory failure and pneumonia. Echocardiogram with normal EF, grade 1/ 4 diastolic dysfunction. (11) Rhabdomyolysis Is this a current diagnosis for this admission?: YesPlan: Continue IV fluids. Resolving. (12) Deafness Is this a current diagnosis for this admission?: Yes (13) Nonsustained ventricular tachycardia Is this a current diagnosis for this admission?: Yes (14) Liver mass, right lobe Is this a current diagnosis for this admission?: YesPlan: Unchanged from 04/24/2015. This will need outpatient follow-up if patient's medical conditions stable. (15) Severe malnutrition Is this a current diagnosis for this admission?: YesPlan: Likely secondary to alcoholism. Continue IV fluids for now. If patient unable to take oral intake in the next couple days we may need to consider artificial feeding. - Time Time Spent with patient: 35 or more minutes
[2016-05-05] MEDS: AMIODARONE HCL 200 MG TABLET PO SCH (20:57)
[2016-05-06] MEDS: ALBUTEROL SULFATE 0.083% NEB 2.5 MG/3 ML AMPUL NEB SCH ×4 (02:56→19:47)
[2016-05-06] MEDS: POTASSI CL 20 MEQ/D5-1/2NS 1L 1,000 ML IV PRN (03:13)
[2016-05-06] MEDS: HEPARIN SOD (PORCINE) 5,000 UNIT/ML 1 ML SYRINGE SUBCUT SCH ×3 (05:10→21:32)
[2016-05-06 06:07] LABS: ABSOLUTE LYMPHOCYTES (AUTO) 0.5 10^3/uL (0.5-4.7); ABSOLUTE MONOCYTES (AUTO) 0.5 10^3/uL (0.1-1.4); ABSOLUTE NEUT (AUTO) 6.7 10^3/uL (1.7-8.2); BASOPHILS % (AUTO) 0.3 % (0-2); EOSINOPHILS % (AUTO) 0.1 % (0-6); HEMATOCRIT 32.1 % (37.9-51.0); HEMOGLOBIN 10.3 g/dL (13.5-17.0); HGB HCT DIFFERENCE -1.2; LYMPHOCYTES % (AUTO) 5.8 % (13-45); MEAN CORPUSCULAR HEMOGLOBIN 27.1 pg (27.0-33.4); MEAN CORPUSCULAR HGB CONC 32.1 g/dL (32.0-36.0); MEAN CORPUSCULAR VOLUME 84 fl (80-97); MONOCYTES % (AUTO) 6.7 % (3-13); RED BLOOD COUNT 3.81 10^6/uL (4.35-5.55); RED CELL DISTRIBUTION WIDTH 17.7 % (11.5-14.0); SEGMENTED NEUTROPHILS % (AUTO) 87.1 % (42-78); WHITE BLOOD COUNT 7.7 10^3/uL (4.0-10.5)
[2016-05-06 06:25] LABS: ALANINE AMINOTRANSFERASE 185 U/L (21-72); ALBUMIN 2.6 g/dL (3.5-5.0); ALKALINE PHOSPHATASE 111 U/L (38-126); ANION GAP 12 (5-19); ASPARTATE AMINO TRANSFERASE 175 U/L (17-59); BILIRUBIN,DIRECT 0.4 mg/dL (0.0-0.4); BILIRUBIN,TOTAL 0.4 mg/dL (0.2-1.3); BLOOD UREA NITROGEN 28 mg/dL (7-20); CARBON DIOXIDE 22 mmol/L (22-30); CHLORIDE 109 mmol/L (98-107); CREATININE RESULT 1.04 mg/dL (0.52-1.25); GLUCOSE 130 mg/dL (75-110); MAGNESIUM 2.4 mg/dL (1.6-2.3); POTASSIUM 4.4 mmol/L (3.6-5.0); SODIUM 142.6 mmol/L (137-145); TOTAL PROTEIN 5.8 g/dL (6.3-8.2)
[2016-05-06] MEDS: METHYLPREDNISOLONE INJ 40 MG/1 ML SDV IV SCH ×2 (09:50→21:32)
[2016-05-06] MEDS: PANTOPRAZOLE SODIUM 40 MG VIAL IV SCH (09:50)
[2016-05-06] MEDS: LEVOFLOXACIN 750 MG/D5W RTU 750 MG/150 ML RTUPB IV SCH (09:51)
[2016-05-06] MEDS: CEFEPIME HCL 2 GM in DEXTROSE 5%-WATER 50 ML IV SCH ×2 (09:56→21:32)
[2016-05-06] MEDS: THIAMINE HCL 100 MG, FOLIC ACID 1 MG in NORMAL SALINE 50 ML IV SCH (09:56)
[2016-05-06] MEDS ORDERED: ASPIRIN 300 MG SUPP, RECTAL PR SCH (10:00)
[2016-05-06] MEDS: AMIODARONE HCL 200 MG TABLET PO SCH (11:11)
[2016-05-06] MEDS: GUAIFENESIN 600 MG TABLET.SA PO SCH (11:11)
[2016-05-06] MEDS: FERROUS SULFATE 325 MG TABLET PO SCH (11:11)
[2016-05-06] MEDS ORDERED: ACETAMINOPHEN 325 MG TABLET NG PRN (14:40)
[2016-05-06] MEDS ORDERED: PHARMACY COMMUNICATION ORDER MC NR (14:45)
--- NOTE | 2016-05-06 14:45 | PDOC PROGRESS REPORT ---
Subjective Progress Note for:: 05/06/16 Subjective:: Nursing reports no new issues. Patient remains unresponsive. I am not able to obtain history secondary to encephalopathic state. Physical Exam Vital Signs: Temp Pulse Resp BP Pulse Ox 97.8 F 75 18 152/38 H 97 05/06/16 11:02 05/06/16 13:32 05/06/16 13:32 05/06/16 11:02 05/06/16 13:32 Intake & Output 05/05/16 05/06/16 05/07/16 06:59 06:59 06:59 Intake Total 1620 1041 0 Balance 1620 1041 0 Weight 57.9 kg 57.9 kg GENERAL: No acute distress, cachectic, disheveled HEENT: Conjunctiva clear, nonicteric, moist mucous membranes, no JVD, midline trachea RESPIRATORY: Diminished bilateral breath sounds CARDIAC: Regular rate and rhythm, no murmurs/gallops/rubs ABDOMEN: Soft, nondistended, nontender, positive bowel sounds, no rebound, no guarding EXTREMETIES: No edema, cyanosis, clubbing NEUROLOGIC: Unresponsive, CN's grossly intact, no focal deficits SKIN: No rash, wounds Results Laboratory Results: 05/06/16 05:11 05/06/16 05:11 05/05/16 05/06/16 05/06/16 14:50 05:11 05:11 WBC 7.7 RBC 3.81 L Hgb 10.3 L Hct 32.1 L MCV 84 MCH 27.1 MCHC 32.1 RDW 17.7 H Plt Count 250 Seg Neutrophils % 87.1 H Lymphocytes % 5.8 L Monocytes % 6.7 Eosinophils % 0.1 Basophils % 0.3 Absolute Neutrophils 6.7 Absolute Lymphocytes 0.5 Absolute Monocytes 0.5 Absolute Eosinophils 0.0 Absolute Basophils 0.0 Carbonic Acid 1.18 HCO3/H2CO3 Ratio 19:1 ABG pH 7.38 ABG pCO2 39.3 ABG pO2 113.2 H ABG HCO3 22.9 ABG O2 Saturation 98.1 H ABG Base Excess -2.0 FiO2 35% Sodium 142.6 Potassium 4.4 Chloride 109 H Carbon Dioxide 22 Anion Gap 12 BUN 28 H Creatinine 1.04 Est GFR ( Amer) > 60 Est GFR (Non-Af Amer) > 60 Glucose 130 H Calcium 9.0 Magnesium 2.4 H Total Bilirubin 0.4 AST 175 H ALT 185 H Alkaline Phosphatase 111 Total Protein 5.8 L Albumin 2.6 L 05/03/16 05/03/16 05/03/16 06:16 06:16 12:20 Creatine Kinase 2104 H 1856 H CK-MB (CK-2) 12.70 H Troponin I 0.983 NT-Pro-B Natriuret Pep 05/03/16 05/03/16 05/03/16 12:20 18:10 18:10 Creatine Kinase 1870 H CK-MB (CK-2) 10.90 H 11.20 H Troponin I 0.801 0.777 NT-Pro-B Natriuret Pep 05/04/16 05/04/16 05/05/16 04:39 04:39 04:32 Creatine Kinase 1525 H 553 H CK-MB (CK-2) Troponin I NT-Pro-B Natriuret Pep 4120 H Impressions: Head CT 05/03/16 00:00 IMPRESSION: MILD CHRONIC CHANGES OF ATROPHY AND MICROVASCULAR ISCHEMIA. NO ACUTE PROCESS. Chest/Abdomen CTA 05/04/16 00:00 IMPRESSION: 1. No PE. 2. UIP pattern consistent with pulmonary fibrosis and possible superimposed infection. Clinical correlation is needed. 3. Right liver mass grossly unchanged from 04/24/2015. Chest X-Ray 05/05/16 06:00 IMPRESSION: No interval change. Assessment & Plan - Diagnosis (1) Acute hypoxemic respiratory failure Is this a current diagnosis for this admission?: YesPlan: Continue BiPAP for respiratory support. Continue to treat COPD exacerbation. Chest/Abdomen CTA 05/04/16 00:00 IMPRESSION: 1. No PE. 2. UIP pattern consistent with pulmonary fibrosis and possible superimposed infection. Clinical correlation is needed. 3. Right liver mass grossly unchanged from 04/24/2015. (2) Atrial fibrillation with RVR Is this a current diagnosis for this admission?: YesPlan: Now in sinus rhythm. Continue amiodarone per NG tube. (3) COPD exacerbation Is this a current diagnosis for this admission?: YesPlan: Continue IV Solu-Medrol. Albuterol nebulizer treatments every 6 hours when necessary (4) Elevated troponin Is this a current diagnosis for this admission?: YesPlan: Consult cardiology appreciated. Likely type II non-ST elevation [place] associated with respiratory failure and pneumonia. Echocardiogram with normal EF, grade 1/ 4 diastolic dysfunction. Continue aspirin. (5) Elevated LFTs Is this a current diagnosis for this admission?: YesPlan: Secondary to heavy alcohol abuse. Patient also noted to have right liver mass. This will need further outpatient follow-up. (6) Encephalopathy Is this a current diagnosis for this admission?: YesPlan: Treat multiple medical problems. Continue supportive care. Head CT with no acute changes, ammonia level less than 8.7, B-12 level normal, TSH normal. Continue thiamine supplementation. Continue nothing by mouth status. Continue IV fluids. Place NG tube and start tube feeding temporarily and also for administration of essential medications. (7) Pneumonia Qualifiers: Pneumonia type: due to unspecified organism Laterality: right Lung location: middle lobe of lung Qualified Code(s): J18.1 - Lobar pneumonia , unspecified organism Is this a current diagnosis for this admission?: YesPlan: Likely bacterial. Continue IV Levaquin and IV cefepime until clinical status improves. Blood cultures no growth. (8) Rhabdomyolysis Is this a current diagnosis for this admission?: YesPlan: Continue IV fluids. Resolving. (9) SIRS (systemic inflammatory response syndrome) Is this a current diagnosis for this admission?: YesPlan: Secondary to pneumonia. (10) Severe malnutrition Is this a current diagnosis for this admission?: YesPlan: Likely secondary to alcoholism. Continue IV fluids for now. Place NG tube and initiate tube feeding. (11) Alcohol dependence Is this a current diagnosis for this admission?: YesPlan: Thiamine. When necessary Ativan. (12) Anemia Qualifiers: Anemia type: iron deficiency Is this a current diagnosis for this admission?: YesPlan: Check Hemoccult of stool. Monitor H&H for stability. Continue iron supplementation. (13) Liver mass Is this a current diagnosis for this admission?: YesPlan: This will need further outpatient follow-up. Apparently size is unchanged from last year's CT scan. (14) Deafness Is this a current diagnosis for this admission?: Yes - Time Time Spent with patient: 35 or more minutes
[2016-05-06] MEDS: LORAZEPAM INJ 2 MG/1 ML VIAL IV PRN ×2 (16:42→20:32)
--- NOTE | 2016-05-06 20:11 | PDOC PROGRESS REPORT ---
Subjective Progress Note for:: 05/06/16 Subjective:: Patient seems to be doing about the same. He still very confused and somewhat obtunded. He was noted to be short of breath. Patient breathing looks however more comfortable than yesterday. Patient in restraints. He is maintaining sinus rhythm. System review: Currently not obtainable Medications reviewed.. Physical Exam Vital Signs: Temp Pulse Resp BP Pulse Ox 97.4 F 82 18 154/54 H 98 05/06/16 15:13 05/06/16 15:13 05/06/16 15:21 05/06/16 15:13 05/06/16 15:21 Intake & Output 05/05/16 05/06/16 05/07/16 06:59 06:59 06:59 Intake Total 1620 1041 750 Balance 1620 1041 750 Weight 57.9 kg 57.9 kg Exam: GENERAL: well-nourished and in no acute distress. Patient is obtunded and intermittently agitated but not oriented to place time or person. Patient looks cachectic. HEAD: Atraumatic, normocephalic. EYES: Pupils equal round and reactive to light, extraocular movements intact, sclera anicteric, conjunctiva are normal. ENT: TMs normal, nares patent, oropharynx clear without exudates. Moist mucous membranes. No oral ulcerations or bleeding gums noted NECK: supple without lymphadenopathy or JVD. Trachea is central. No cervical or axillary lymphadenopathy noted. Carotids are 2+ LUNGS: Breath sounds bibasilar fine crackles at bases. No significant dullness noted. CHEST: Palpation of chest wall shows no significant chest wall tenderness. HEART: [employer], No PSH, 2/6 JUAN FRANCISCO aortic area, 1/6 simmons systolic murmur mitral area, rubs or gallops. ABDOMEN: Soft, no significant tenderness appreciated, normoactive bowel sounds. No guarding, no rebound. No rigidity noted . No masses appreciated. EXTREMITIES: Pedal pulses are 1-2+, no calf tenderness noted, Trace + pedal edema noted. No clubbing or cyanosis. NEUROLOGICAL: Patient is alert but is not able to participate in neurological exam because of patient's current mental status PSYCH: Patient cannot participate in a neurologic and psych exam because of the patient's current mental status SKIN: No significant ecchymosis, rash, ulcerations or signs of pruritus noted. MUSCULOSKELETAL EXAM: No significant joint swelling noted. Results Laboratory Results: 05/06/16 05:11 05/06/16 05:11 05/06/16 05/06/16 05:11 05:11 WBC 7.7 RBC 3.81 L Hgb 10.3 L Hct 32.1 L MCV 84 MCH 27.1 MCHC 32.1 RDW 17.7 H Plt Count 250 Seg Neutrophils % 87.1 H Lymphocytes % 5.8 L Monocytes % 6.7 Eosinophils % 0.1 Basophils % 0.3 Absolute Neutrophils 6.7 Absolute Lymphocytes 0.5 Absolute Monocytes 0.5 Absolute Eosinophils 0.0 Absolute Basophils 0.0 Sodium 142.6 Potassium 4.4 Chloride 109 H Carbon Dioxide 22 Anion Gap 12 BUN 28 H Creatinine 1.04 Est GFR ( Amer) > 60 Est GFR (Non-Af Amer) > 60 Glucose 130 H Calcium 9.0 Magnesium 2.4 H Total Bilirubin 0.4 AST 175 H ALT 185 H Alkaline Phosphatase 111 Total Protein 5.8 L Albumin 2.6 L 05/03/16 05/03/16 05/03/16 06:16 06:16 12:20 Creatine Kinase 2104 H 1856 H CK-MB (CK-2) 12.70 H Troponin I 0.983 NT-Pro-B Natriuret Pep 05/03/16 05/03/16 05/03/16 12:20 18:10 18:10 Creatine Kinase 1870 H CK-MB (CK-2) 10.90 H 11.20 H Troponin I 0.801 0.777 NT-Pro-B Natriuret Pep 05/04/16 05/04/16 05/05/16 04:39 04:39 04:32 Creatine Kinase 1525 H 553 H CK-MB (CK-2) Troponin I NT-Pro-B Natriuret Pep 4120 H Impressions: Head CT 05/03/16 00:00 IMPRESSION: MILD CHRONIC CHANGES OF ATROPHY AND MICROVASCULAR ISCHEMIA. NO ACUTE PROCESS. Chest/Abdomen CTA 05/04/16 00:00 IMPRESSION: 1. No PE. 2. UIP pattern consistent with pulmonary fibrosis and possible superimposed infection. Clinical correlation is needed. 3. Right liver mass grossly unchanged from 04/24/2015. Chest X-Ray 05/05/16 06:00 IMPRESSION: No interval change. KUB X-Ray 05/06/16 14:31 IMPRESSION: There may be in a NG tube tip overlying the lower esophagus but cannot be confirmed at the margin of the image. No NG tube visualized in the abdomen. Assessment & Plan - Diagnosis (1) Atrial fibrillation with RVR Is this a current diagnosis for this admission?: Yes (2) Congestive heart failure Qualifiers: Congestive heart failure type: diastolic Congestive heart failure chronicity: acute Qualified Code(s): I50.31 - Acute diastolic (congestive ) heart failure Is this a current diagnosis for this admission?: Yes (3) Elevated troponin Is this a current diagnosis for this admission?: Yes (4) Rhabdomyolysis Is this a current diagnosis for this admission?: Yes (5) Alcohol dependence Is this a current diagnosis for this admission?: Yes (6) COPD exacerbation Is this a current diagnosis for this admission?: Yes (7) Elevated LFTs Is this a current diagnosis for this admission?: Yes (8) Altered mental status Qualifiers: Altered mental status type: disorientation Qualified Code(s): R41.0 - Disorientation, unspecified Is this a current diagnosis for this admission?: Yes - Notes Notes: Atrial fibrillation with RVR: Patient maintaining sinus rhythm. CHF: Patient seems to be euvolemic and not in any significant fluid overload. Rhabdomyolysis: Enzymes has trended down. Abnormal liver function test: The liver functions are improving. Altered mental status and encephalopathy: This is now a major factor. Continue to observe and follow. - Time Time with patient: 15-25 minutes - More than 50% of the time spent coordinating care, discussing management plans with involved caregivers. Management plans discussed with involved personnels. Medical decision making was of moderate complexity. Medications reviewed and adjusted accordingly: Yes
[2016-05-07] MEDS: LACTULOSE SYRUP 20 GM/30 ML UDCUP NG SCH ×3 (00:21→18:20)
[2016-05-07] MEDS: FERROUS SULFATE LIQUID 300 MG/5 ML UDC NG SCH ×3 (00:21→18:20)
[2016-05-07] MEDS: AMIODARONE HCL 200 MG TABLET NG SCH ×3 (00:21→22:22)
[2016-05-07] MEDS: POTASSI CL 20 MEQ/D5-1/2NS 1L 1,000 ML IV PRN ×3 (02:06→15:22)
[2016-05-07] MEDS: ALBUTEROL SULFATE 0.083% NEB 2.5 MG/3 ML AMPUL NEB SCH ×4 (02:18→19:38)
[2016-05-07 04:48] LABS: ABSOLUTE LYMPHOCYTES (AUTO) 0.4 10^3/uL (0.5-4.7); ABSOLUTE MONOCYTES (AUTO) 0.3 10^3/uL (0.1-1.4); ABSOLUTE NEUT (AUTO) 7.3 10^3/uL (1.7-8.2); BASOPHILS % (AUTO) 0.2 % (0-2); HEMATOCRIT 27.5 % (37.9-51.0); HEMOGLOBIN 9.3 g/dL (13.5-17.0); HGB HCT DIFFERENCE 0.4; LYMPHOCYTES % (AUTO) 5.4 % (13-45); MEAN CORPUSCULAR HGB CONC 33.8 g/dL (32.0-36.0); MEAN CORPUSCULAR VOLUME 83 fl (80-97); MONOCYTES % (AUTO) 4.1 % (3-13); RED BLOOD COUNT 3.32 10^6/uL (4.35-5.55); RED CELL DISTRIBUTION WIDTH 17.3 % (11.5-14.0); SEGMENTED NEUTROPHILS % (AUTO) 90.3 % (42-78); WHITE BLOOD COUNT 8.1 10^3/uL (4.0-10.5)
[2016-05-07 05:12] LABS: ALANINE AMINOTRANSFERASE 155 U/L (21-72); ALBUMIN 2.7 g/dL (3.5-5.0); ALKALINE PHOSPHATASE 107 U/L (38-126); ANION GAP 9 (5-19); ASPARTATE AMINO TRANSFERASE 130 U/L (17-59); BILIRUBIN,DIRECT 0.3 mg/dL (0.0-0.4); BILIRUBIN,TOTAL 0.4 mg/dL (0.2-1.3); BLOOD UREA NITROGEN 23 mg/dL (7-20); CALCIUM 9.3 mg/dL (8.4-10.2); CARBON DIOXIDE 23 mmol/L (22-30); CHLORIDE 108 mmol/L (98-107); CREATININE RESULT 0.94 mg/dL (0.52-1.25); GLUCOSE 116 mg/dL (75-110); POTASSIUM 4.5 mmol/L (3.6-5.0); SODIUM 139.9 mmol/L (137-145); TOTAL PROTEIN 5.7 g/dL (6.3-8.2)
[2016-05-07] MEDS: HEPARIN SOD (PORCINE) 5,000 UNIT/ML 1 ML SYRINGE SUBCUT SCH ×3 (06:53→22:22)
--- NOTE | 2016-05-07 12:31 | PDOC PROGRESS REPORT ---
Subjective Progress Note for:: 05/07/16 Subjective:: Patient seems to be doing about the same. He still very confused and somewhat obtunded. He was noted to be otherwise comfortable in no distress. Patient breathing looks however more comfortable than yesterday. Patient in restraints. He is maintaining sinus rhythm. Patient had NG tube placed. System review: Currently not obtainable Medications reviewed.. Physical Exam Vital Signs: Temp Pulse Resp BP Pulse Ox 97.7 F 73 18 104/75 99 05/07/16 12:00 05/07/16 12:00 05/07/16 12:00 05/07/16 12:00 05/07/16 12:00 Intake & Output 05/06/16 05/07/16 05/08/16 06:59 06:59 06:59 Intake Total 1041 1550 Balance 1041 1550 Weight 57.9 kg 57.9 kg Exam: GENERAL: well-nourished and in no acute distress. Patient is alert but not oriented to place time or person. HEAD: Atraumatic, normocephalic. EYES: Pupils equal round and reactive to light, extraocular movements intact, sclera anicteric, conjunctiva are normal. ENT: TMs normal, nares patent, oropharynx clear without exudates. Moist mucous membranes. No oral ulcerations or bleeding gums noted NECK: supple without lymphadenopathy or JVD. Trachea is central. No cervical or axillary lymphadenopathy noted. Carotids are 2+ LUNGS: Breath sounds bibasilar fine crackles at bases. No significant dullness noted. CHEST: Palpation of chest wall shows no significant chest wall tenderness. HEART: [place] [employer], No PSH, 2/6 JUAN FRANCISCO aortic area, 1/6 simmons systolic murmur mitral area, rubs or gallops. ABDOMEN: Soft, no significant tenderness appreciated, normoactive bowel sounds. No guarding, no rebound. No rigidity noted . No masses appreciated. EXTREMITIES: Pedal pulses are 1-2+, no calf tenderness noted, Trace + pedal edema noted. No clubbing or cyanosis. NEUROLOGICAL: Patient is alert but is not able to participate in neurological exam because of patient's current mental status PSYCH: Patient cannot participate in a neurologic and psych exam because of the patient's current mental status SKIN: No significant ecchymosis, rash, ulcerations or signs of pruritus noted. MUSCULOSKELETAL EXAM: No significant joint swelling noted. Results Laboratory Results: 05/07/16 03:44 05/07/16 03:44 05/07/16 05/07/16 03:44 03:44 WBC 8.1 RBC 3.32 L Hgb 9.3 L Hct 27.5 L MCV 83 MCH 28.0 MCHC 33.8 RDW 17.3 H Plt Count 230 Seg Neutrophils % 90.3 H Lymphocytes % 5.4 L Monocytes % 4.1 Eosinophils % 0.0 Basophils % 0.2 Absolute Neutrophils 7.3 Absolute Lymphocytes 0.4 L Absolute Monocytes 0.3 Absolute Eosinophils 0.0 Absolute Basophils 0.0 Sodium 139.9 Potassium 4.5 Chloride 108 H Carbon Dioxide 23 Anion Gap 9 BUN 23 H Creatinine 0.94 Est GFR ( Amer) > 60 Est GFR (Non-Af Amer) > 60 Glucose 116 H Calcium 9.3 Total Bilirubin 0.4 AST 130 H ALT 155 H Alkaline Phosphatase 107 Total Protein 5.7 L Albumin 2.7 L 05/03/16 05/03/16 05/03/16 06:16 06:16 12:20 Creatine Kinase 2104 H 1856 H CK-MB (CK-2) 12.70 H Troponin I 0.983 NT-Pro-B Natriuret Pep 05/03/16 05/03/16 05/03/16 12:20 18:10 18:10 Creatine Kinase 1870 H CK-MB (CK-2) 10.90 H 11.20 H Troponin I 0.801 0.777 NT-Pro-B Natriuret Pep 05/04/16 05/04/16 05/05/16 04:39 04:39 04:32 Creatine Kinase 1525 H 553 H CK-MB (CK-2) Troponin I NT-Pro-B Natriuret Pep 4120 H Impressions: Head CT 05/03/16 00:00 IMPRESSION: MILD CHRONIC CHANGES OF ATROPHY AND MICROVASCULAR ISCHEMIA. NO ACUTE PROCESS. Chest/Abdomen CTA 05/04/16 00:00 IMPRESSION: 1. No PE. 2. UIP pattern consistent with pulmonary fibrosis and possible superimposed infection. Clinical correlation is needed. 3. Right liver mass grossly unchanged from 04/24/2015. Chest X-Ray 05/05/16 06:00 IMPRESSION: No interval change. KUB X-Ray 05/07/16 00:00 IMPRESSION: Suboptimal exam. NG tube coiled in the stomach with the tip in the region of the GE junction. Assessment & Plan - Diagnosis (1) Atrial fibrillation with RVR Is this a current diagnosis for this admission?: Yes (2) Congestive heart failure Qualifiers: Congestive heart failure type: diastolic Congestive heart failure chronicity: acute Qualified Code(s): I50.31 - Acute diastolic (congestive ) heart failure Is this a current diagnosis for this admission?: Yes (3) Elevated troponin Is this a current diagnosis for this admission?: Yes (4) Rhabdomyolysis Is this a current diagnosis for this admission?: Yes (5) Alcohol dependence Is this a current diagnosis for this admission?: Yes (6) COPD exacerbation Is this a current diagnosis for this admission?: Yes (7) Elevated LFTs Is this a current diagnosis for this admission?: Yes (8) Altered mental status Qualifiers: Altered mental status type: disorientation Qualified Code(s): R41.0 - Disorientation, unspecified Is this a current diagnosis for this admission?: Yes - Notes Notes: Atrial fibrillation with RVR: Patient maintaining sinus rhythm. CHF: Patient seems to be euvolemic and not in any significant fluid overload. Rhabdomyolysis: Enzymes has trended down. Abnormal liver function test: The liver functions are improving. Altered mental status and encephalopathy: This is now a major factor. Continue to observe and follow. No significant changes noted. Patient had NG tube placed for nutrition. - Time Time with patient: 15-25 minutes - CODE STATUS was discussed, patient remains full code. Surrogate decision-maker not identified. Multiple medical problems were addressed.More than 50% of the time spent coordinating care, discussing management plans with involved caregivers. Management plans discussed with involved personnels. Medical decision making was of moderate complexity.
[2016-05-07] MEDS: ASPIRIN 81 MG TABLET, CHEWABLE NG SCH (13:40)
[2016-05-07] MEDS: METHYLPREDNISOLONE INJ 40 MG/1 ML SDV IV SCH ×2 (13:41→22:22)
[2016-05-07] MEDS: LEVOFLOXACIN 750 MG/D5W RTU 750 MG/150 ML RTUPB IV SCH (14:22)
[2016-05-07] MEDS: CEFEPIME HCL 2 GM in DEXTROSE 5%-WATER 50 ML IV SCH ×2 (15:21→22:23)
[2016-05-07] MEDS: LORAZEPAM INJ 2 MG/1 ML VIAL IV PRN (15:40)
[2016-05-07] MEDS: THIAMINE HCL 100 MG, FOLIC ACID 1 MG in NORMAL SALINE 50 ML IV SCH (18:18)
--- NOTE | 2016-05-07 20:04 | PDOC PROGRESS REPORT ---
Subjective Progress Note for:: 05/07/16 Subjective:: The patient remains confused to and to somewhat obtunded. He has a sitter in the room and is also in wrist restraints. He is on BiPAP. Right lower lobe pneumonia is under R axis. Dr. Wililam, cardiology, is following for the atrial fibrillation and CHF concerns. Physical Exam Vital Signs: Temp Pulse Resp BP Pulse Ox 97.2 F 80 20 163/69 H 95 05/07/16 16:00 05/07/16 19:40 05/07/16 19:40 05/07/16 16:00 05/07/16 16:00 Intake & Output 05/06/16 05/07/16 05/08/16 06:59 06:59 06:59 Intake Total 1041 1550 Balance 1041 1550 Weight 57.9 kg 57.9 kg Additional comments: GENERAL: No acute distress, cachectic, disheveled HEENT: Conjunctiva clear, nonicteric, moist mucous membranes, no JVD, midline trachea RESPIRATORY: Diminished bilateral breath sounds CARDIAC: Regular rate and rhythm, no murmurs/gallops/rubs ABDOMEN: Soft, nondistended, nontender, positive bowel sounds, no rebound, no guarding EXTREMETIES: No edema, cyanosis, clubbing NEUROLOGIC: Poorly responsive, CN's grossly intact, no focal deficits SKIN: No rash, wounds Results Laboratory Results: 05/07/16 03:44 05/07/16 03:44 05/07/16 05/07/16 03:44 03:44 WBC 8.1 RBC 3.32 L Hgb 9.3 L Hct 27.5 L MCV 83 MCH 28.0 MCHC 33.8 RDW 17.3 H Plt Count 230 Seg Neutrophils % 90.3 H Lymphocytes % 5.4 L Monocytes % 4.1 Eosinophils % 0.0 Basophils % 0.2 Absolute Neutrophils 7.3 Absolute Lymphocytes 0.4 L Absolute Monocytes 0.3 Absolute Eosinophils 0.0 Absolute Basophils 0.0 Sodium 139.9 Potassium 4.5 Chloride 108 H Carbon Dioxide 23 Anion Gap 9 BUN 23 H Creatinine 0.94 Est GFR ( Amer) > 60 Est GFR (Non-Af Amer) > 60 Glucose 116 H Calcium 9.3 Total Bilirubin 0.4 AST 130 H ALT 155 H Alkaline Phosphatase 107 Total Protein 5.7 L Albumin 2.7 L 05/03/16 05/03/16 05/03/16 06:16 06:16 12:20 Creatine Kinase 2104 H 1856 H CK-MB (CK-2) 12.70 H Troponin I 0.983 NT-Pro-B Natriuret Pep 05/03/16 05/03/16 05/03/16 12:20 18:10 18:10 Creatine Kinase 1870 H CK-MB (CK-2) 10.90 H 11.20 H Troponin I 0.801 0.777 NT-Pro-B Natriuret Pep 05/04/16 05/04/16 05/05/16 04:39 04:39 04:32 Creatine Kinase 1525 H 553 H CK-MB (CK-2) Troponin I NT-Pro-B Natriuret Pep 4120 H Impressions: Head CT 05/03/16 00:00 IMPRESSION: MILD CHRONIC CHANGES OF ATROPHY AND MICROVASCULAR ISCHEMIA. NO ACUTE PROCESS. Chest/Abdomen CTA 05/04/16 00:00 IMPRESSION: 1. No PE. 2. UIP pattern consistent with pulmonary fibrosis and possible superimposed infection. Clinical correlation is needed. 3. Right liver mass grossly unchanged from 04/24/2015. Chest X-Ray 05/05/16 06:00 IMPRESSION: No interval change. KUB X-Ray 05/07/16 00:00 IMPRESSION: Suboptimal exam. NG tube coiled in the stomach with the tip in the region of the GE junction. Assessment & Plan - Diagnosis (1) Acute hypoxemic respiratory failure Is this a current diagnosis for this admission?: YesPlan: Continue current respiratory support with BiPAP. (2) Atrial fibrillation with RVR Is this a current diagnosis for this admission?: YesPlan: Now in normal sinus rhythm. Continue amiodarone. Of note, patient has pulmonary fibrosis on CT scan. (3) Pneumonia Qualifiers: Pneumonia type: due to unspecified organism Laterality: right Lung location: middle lobe of lung Qualified Code(s): J18.1 - Lobar pneumonia , unspecified organism Is this a current diagnosis for this admission?: YesPlan: Continue antibiotics and IV fluids. Continue steroids and nebulized bronchodilators. (4) COPD exacerbation Is this a current diagnosis for this admission?: YesPlan: Continue antibiotics and IV fluids. Continue steroids and nebulized bronchodilators. (5) Rhabdomyolysis Is this a current diagnosis for this admission?: YesPlan: Continue IV fluids. Resolving. Continue to monitor. (6) Severe malnutrition Is this a current diagnosis for this admission?: YesPlan: 2. Feedings per NG. (7) Alcohol dependence Is this a current diagnosis for this admission?: Yes (8) Liver mass Is this a current diagnosis for this admission?: YesPlan: This will require outpatient follow-up. Apparently the size is unchanged from last year's CT scan.
[2016-05-08] MEDS: ALBUTEROL SULFATE 0.083% NEB 2.5 MG/3 ML AMPUL NEB SCH ×4 (02:21→19:58)
[2016-05-08] MEDS: HEPARIN SOD (PORCINE) 5,000 UNIT/ML 1 ML SYRINGE SUBCUT SCH ×3 (05:43→22:09)
[2016-05-08] MEDS: THIAMINE HCL 100 MG, FOLIC ACID 1 MG in NORMAL SALINE 50 ML IV SCH (10:36)
[2016-05-08] MEDS: METHYLPREDNISOLONE INJ 40 MG/1 ML SDV IV SCH (10:38)
[2016-05-08] MEDS: FERROUS SULFATE LIQUID 300 MG/5 ML UDC NG SCH ×2 (10:39→18:25)
[2016-05-08] MEDS: LACTULOSE SYRUP 20 GM/30 ML UDCUP NG SCH ×2 (10:39→18:25)
[2016-05-08] MEDS: AMIODARONE HCL 200 MG TABLET NG SCH ×2 (10:49→22:09)
[2016-05-08] MEDS: ASPIRIN 81 MG TABLET, CHEWABLE NG SCH (10:50)
[2016-05-08] MEDS: CEFEPIME HCL 2 GM in DEXTROSE 5%-WATER 50 ML IV SCH ×2 (10:54→22:09)
[2016-05-08] MEDS: LEVOFLOXACIN 750 MG/D5W RTU 750 MG/150 ML RTUPB IV SCH (11:33)
[2016-05-08] MEDS: POTASSI CL 20 MEQ/D5-1/2NS 1L 1,000 ML IV PRN (12:23)
--- NOTE | 2016-05-08 17:04 | PDOC PROGRESS REPORT ---
Subjective Progress Note for:: 05/08/16 Subjective:: The patient continues to be confused and somewhat obtunded. He is often restless and tries to get out of the bed. There is a sitter in the room and the patient is also in wrist restraints. He is on BiPAP overnight and currently receiving O2 by mask. Right lower lobe pneumonia is under treatment. Dr. William, cardiology, is following for the atrial fibrillation and CHF concerns. Physical Exam Vital Signs: Temp Pulse Resp BP Pulse Ox 97.4 F 110 H 20 120/68 96 05/08/16 16:00 05/08/16 16:00 05/08/16 16:00 05/08/16 16:00 05/08/16 16:00 Intake & Output 05/07/16 05/08/16 05/09/16 06:59 06:59 06:59 Intake Total 1550 1311 155 Balance 1550 1311 155 Weight 57.9 kg 56.5 kg Additional comments: GENERAL: No acute distress, cachectic, disheveled HEENT: Conjunctiva clear, nonicteric, moist mucous membranes, no JVD, midline trachea RESPIRATORY: Diminished bilateral breath sounds CARDIAC: Regular rate and rhythm, no murmurs/gallops/rubs ABDOMEN: Soft, nondistended, nontender, positive bowel sounds, no rebound, no guarding EXTREMETIES: No edema, cyanosis, clubbing NEUROLOGIC: Poorly responsive, CN's grossly intact, no focal deficits SKIN: No rash, wounds Results Laboratory Results: 05/07/16 03:44 05/07/16 03:44 05/03/16 08:30 Blood Blood Culture - Final NO GROWTH IN 5 DAYS 05/03/16 05/03/16 05/03/16 06:16 06:16 12:20 Creatine Kinase 2104 H 1856 H CK-MB (CK-2) 12.70 H Troponin I 0.983 NT-Pro-B Natriuret Pep 05/03/16 05/03/16 05/03/16 12:20 18:10 18:10 Creatine Kinase 1870 H CK-MB (CK-2) 10.90 H 11.20 H Troponin I 0.801 0.777 NT-Pro-B Natriuret Pep 05/04/16 05/04/16 05/05/16 04:39 04:39 04:32 Creatine Kinase 1525 H 553 H CK-MB (CK-2) Troponin I NT-Pro-B Natriuret Pep 4120 H Impressions: Head CT 05/03/16 00:00 IMPRESSION: MILD CHRONIC CHANGES OF ATROPHY AND MICROVASCULAR ISCHEMIA. NO ACUTE PROCESS. Chest/Abdomen CTA 05/04/16 00:00 IMPRESSION: 1. No PE. 2. UIP pattern consistent with pulmonary fibrosis and possible superimposed infection. Clinical correlation is needed. 3. Right liver mass grossly unchanged from 04/24/2015. Chest X-Ray 05/05/16 06:00 IMPRESSION: No interval change. KUB X-Ray 05/07/16 00:00 IMPRESSION: Suboptimal exam. NG tube coiled in the stomach with the tip in the region of the GE junction. Assessment & Plan - Diagnosis (1) Acute hypoxemic respiratory failure Is this a current diagnosis for this admission?: YesPlan: Continue current oxygen supplementation, including BiPAP at night. (2) Atrial fibrillation with RVR Is this a current diagnosis for this admission?: YesPlan: Now in normal sinus rhythm. He continues on amiodarone. Of note, the patient has pulmonary fibrosis on CT scan. (3) Pneumonia Qualifiers: Pneumonia type: due to unspecified organism Laterality: right Lung location: middle lobe of lung Qualified Code(s): J18.1 - Lobar pneumonia , unspecified organism Is this a current diagnosis for this admission?: YesPlan: He continues on cefepime, Levaquin, IV fluids, steroids and nebulized bronchodilators. (4) COPD exacerbation Is this a current diagnosis for this admission?: YesPlan: Continue Rx as above. (5) Rhabdomyolysis Is this a current diagnosis for this admission?: YesPlan: Continue IV hydration. We will recheck total CK in the morning. (6) Severe malnutrition Is this a current diagnosis for this admission?: YesPlan: He is receiving tube feedings per NG. (7) Alcohol dependence Is this a current diagnosis for this admission?: Yes (8) Liver mass Is this a current diagnosis for this admission?: YesPlan: This is apparently unchanged in size compared to last year's CT scan. This will require outpatient follow-up.
--- NOTE | 2016-05-08 17:11 | PDOC PROGRESS REPORT ---
Subjective Progress Note for:: 05/08/16 Subjective:: Patient seems to be doing about the same. He still very confused and still obtunded. He was noted to be otherwise comfortable in no distress. Patient breathing looks however more comfortable than yesterday. Patient in restraints. He is maintaining sinus rhythm. Patient had NG tube feedings which he seems to be tolerating. System review: Currently not obtainable Medications reviewed.. Physical Exam Vital Signs: Temp Pulse Resp BP Pulse Ox 97.4 F 110 H 20 120/68 96 05/08/16 16:00 05/08/16 16:00 05/08/16 16:00 05/08/16 16:00 05/08/16 16:00 Intake & Output 05/07/16 05/08/16 05/09/16 06:59 06:59 06:59 Intake Total 1550 1311 155 Balance 1550 1311 155 Weight 57.9 kg 56.5 kg Exam: GENERAL: well-nourished and in no acute distress. Patient is alert but not oriented to place time or person. HEAD: Atraumatic, normocephalic. EYES: Pupils equal round and reactive to light, extraocular movements intact, sclera anicteric, conjunctiva are normal. ENT: TMs normal, nares patent, oropharynx clear without exudates. Moist mucous membranes. No oral ulcerations or bleeding gums noted NECK: supple without lymphadenopathy or JVD. Trachea is central. No cervical or axillary lymphadenopathy noted. Carotids are 2+ LUNGS: Breath sounds bibasilar fine crackles at bases. No significant dullness noted. CHEST: Palpation of chest wall shows no significant chest wall tenderness. HEART: [facility]IA[facility], No PSH, 2/6 JUAN FRANCISCO aortic area, 1/6 simmons systolic murmur mitral area, rubs or gallops. ABDOMEN: Soft, no significant tenderness appreciated, normoactive bowel sounds. No guarding, no rebound. No rigidity noted . No masses appreciated. EXTREMITIES: Pedal pulses are 1-2+, no calf tenderness noted, Trace + pedal edema noted. No clubbing or cyanosis. NEUROLOGICAL: Patient is alert but is not able to participate in neurological exam because of patient's current mental status PSYCH: Patient cannot participate in a neurologic and psych exam because of the patient's current mental status SKIN: No significant ecchymosis, rash, ulcerations or signs of pruritus noted. MUSCULOSKELETAL EXAM: No significant joint swelling noted. Results Laboratory Results: 05/07/16 03:44 05/07/16 03:44 05/03/16 08:30 Blood Blood Culture - Final NO GROWTH IN 5 DAYS 05/03/16 05/03/16 05/03/16 06:16 06:16 12:20 Creatine Kinase 2104 H 1856 H CK-MB (CK-2) 12.70 H Troponin I 0.983 NT-Pro-B Natriuret Pep 05/03/16 05/03/16 05/03/16 12:20 18:10 18:10 Creatine Kinase 1870 H CK-MB (CK-2) 10.90 H 11.20 H Troponin I 0.801 0.777 NT-Pro-B Natriuret Pep 05/04/16 05/04/16 05/05/16 04:39 04:39 04:32 Creatine Kinase 1525 H 553 H CK-MB (CK-2) Troponin I NT-Pro-B Natriuret Pep 4120 H Impressions: Head CT 05/03/16 00:00 IMPRESSION: MILD CHRONIC CHANGES OF ATROPHY AND MICROVASCULAR ISCHEMIA. NO ACUTE PROCESS. Chest/Abdomen CTA 05/04/16 00:00 IMPRESSION: 1. No PE. 2. UIP pattern consistent with pulmonary fibrosis and possible superimposed infection. Clinical correlation is needed. 3. Right liver mass grossly unchanged from 04/24/2015. Chest X-Ray 05/05/16 06:00 IMPRESSION: No interval change. KUB X-Ray 05/07/16 00:00 IMPRESSION: Suboptimal exam. NG tube coiled in the stomach with the tip in the region of the GE junction. Assessment & Plan - Diagnosis (1) Atrial fibrillation with RVR Is this a current diagnosis for this admission?: Yes (2) Congestive heart failure Qualifiers: Congestive heart failure type: diastolic Congestive heart failure chronicity: acute Qualified Code(s): I50.31 - Acute diastolic (congestive ) heart failure Is this a current diagnosis for this admission?: Yes (3) Elevated troponin Is this a current diagnosis for this admission?: Yes (4) Rhabdomyolysis Is this a current diagnosis for this admission?: Yes (5) Alcohol dependence Is this a current diagnosis for this admission?: Yes (6) COPD exacerbation Is this a current diagnosis for this admission?: Yes (7) Elevated LFTs Is this a current diagnosis for this admission?: Yes (8) Altered mental status Qualifiers: Altered mental status type: disorientation Qualified Code(s): R41.0 - Disorientation, unspecified Is this a current diagnosis for this admission?: Yes - Notes Notes: Atrial fibrillation with RVR: Patient maintaining sinus rhythm. Currently on amiodarone by mouth. Would recommend stopping amiodarone on discharge. This is because of history of COPD and some pulmonary fibrosis. CHF: Patient seems to be euvolemic and not in any significant fluid overload. Continue to observe patient very closely. Currently volume is WNL Rhabdomyolysis: Enzymes has trended down. These are trending down. Abnormal liver function test: The liver functions are improving. May consider repeating periodically. Altered mental status and encephalopathy: This is now a major factor. Waiting for patient to recover. Continue to observe and follow. - Time Time with patient: 15-25 minutes - CODE STATUS was discussed, patient remains full code. Surrogate decision-maker not identified. Multiple medical problems were addressed.More than 50% of the time spent coordinating care, discussing management plans with involved caregivers. Management plans discussed with involved personnels. Medical decision making was of moderate complexity.
[2016-05-08] MEDS: PREDNISONE 10 MG TABLET PO SCH (18:25)
[2016-05-09] MEDS: ALBUTEROL SULFATE 0.083% NEB 2.5 MG/3 ML AMPUL NEB SCH ×4 (02:14→20:47)
[2016-05-09] MEDS: POTASSI CL 20 MEQ/D5-1/2NS 1L 1,000 ML IV PRN ×2 (04:25→20:20)
[2016-05-09] MEDS: HEPARIN SOD (PORCINE) 5,000 UNIT/ML 1 ML SYRINGE SUBCUT SCH ×3 (05:43→22:52)
[2016-05-09 08:04] LABS: ABSOLUTE LYMPHOCYTES (AUTO) 0.9 10^3/uL (0.5-4.7); ABSOLUTE MONOCYTES (AUTO) 0.7 10^3/uL (0.1-1.4); ABSOLUTE NEUT (AUTO) 9.7 10^3/uL (1.7-8.2); BASOPHILS % (AUTO) 0.2 % (0-2); EOSINOPHILS % (AUTO) 0.1 % (0-6); HEMATOCRIT 27.6 % (37.9-51.0); HEMOGLOBIN 9.1 g/dL (13.5-17.0); HGB HCT DIFFERENCE -0.3; MEAN CORPUSCULAR HEMOGLOBIN 27.5 pg (27.0-33.4); MEAN CORPUSCULAR HGB CONC 32.9 g/dL (32.0-36.0); MEAN CORPUSCULAR VOLUME 84 fl (80-97); MONOCYTES % (AUTO) 6.4 % (3-13); RED BLOOD COUNT 3.31 10^6/uL (4.35-5.55); RED CELL DISTRIBUTION WIDTH 17.2 % (11.5-14.0); SEGMENTED NEUTROPHILS % (AUTO) 85.3 % (42-78); WHITE BLOOD COUNT 11.4 10^3/uL (4.0-10.5)
[2016-05-09 08:20] LABS: ANION GAP 10 (5-19); BLOOD UREA NITROGEN 20 mg/dL (7-20); CARBON DIOXIDE 26 mmol/L (22-30); CHLORIDE 100 mmol/L (98-107); CREATININE RESULT 0.75 mg/dL (0.52-1.25); GLUCOSE 84 mg/dL (75-110); POTASSIUM 3.9 mmol/L (3.6-5.0); SODIUM 135.6 mmol/L (137-145)
[2016-05-09] MEDS: AMIODARONE HCL 200 MG TABLET NG SCH ×2 (11:35→22:52)
[2016-05-09] MEDS: LEVOFLOXACIN 750 MG/D5W RTU 750 MG/150 ML RTUPB IV SCH (11:35)
[2016-05-09] MEDS: PREDNISONE 10 MG TABLET PO SCH (11:36)
[2016-05-09] MEDS: ASPIRIN 81 MG TABLET, CHEWABLE NG SCH (11:36)
[2016-05-09] MEDS: LACTULOSE SYRUP 20 GM/30 ML UDCUP NG SCH ×2 (11:39→18:03)
[2016-05-09] MEDS: FERROUS SULFATE LIQUID 300 MG/5 ML UDC NG SCH ×2 (11:39→18:02)
[2016-05-09] MEDS: THIAMINE HCL 100 MG, FOLIC ACID 1 MG in NORMAL SALINE 50 ML IV SCH (12:46)
[2016-05-09] MEDS ORDERED: GUAIFENESIN SYRP 200 MG/10 ML UDC NG PRN (12:59)
[2016-05-09] MEDS: CEFEPIME HCL 2 GM in DEXTROSE 5%-WATER 50 ML IV SCH ×2 (14:15→22:52)
--- NOTE | 2016-05-09 16:05 | EKG REPORT ---
SEVERITY:- OTHERWISE NORMAL ECG - SINUS RHYTHM ATRIAL PREMATURE COMPLEX : Confirmed by: Jessica William 09-May-2016 16:04:38
--- NOTE | 2016-05-09 17:04 | PDOC PROGRESS REPORT ---
Subjective Progress Note for:: 05/09/16 Subjective:: This patient is being treated for right middle lobe pneumonia, exacerbation of COPD, alcohol withdrawal delirium, atrial fib with RVR, and acute CHF. He is followed by Dr. William, cardiology. The patient's mental status has been very altered, but today he is more arousable and interactive. He continues to be restless and tries to get out of the bed. He has required wrist restraints and a sitter in the room. He uses BiPAP overnight. This morning he was using O2 by mask. Physical Exam Vital Signs: Temp Pulse Resp BP Pulse Ox 97.5 F 72 18 114/64 100 05/09/16 15:33 05/09/16 15:33 05/09/16 15:33 05/09/16 15:33 05/09/16 15:33 Intake & Output 05/08/16 05/09/16 05/10/16 06:59 06:59 06:59 Intake Total 1311 3135 227 Balance 1311 3135 227 Weight 56.5 kg 56.4 kg Additional comments: GENERAL: No acute distress, cachectic, disheveled HEENT: Conjunctiva clear, nonicteric, moist mucous membranes, no JVD, midline trachea RESPIRATORY: Diminished bilateral breath sounds CARDIAC: Regular rate and rhythm, no murmurs/gallops/rubs ABDOMEN: Soft, nondistended, nontender, positive bowel sounds, no rebound, no guarding EXTREMETIES: No edema, cyanosis, clubbing NEUROLOGIC: Poorly responsive, CN's grossly intact, no focal deficits SKIN: No rash, wounds Results Laboratory Results: 05/09/16 06:55 05/09/16 06:55 05/08/16 05/09/16 05/09/16 22:05 06:55 06:55 WBC 11.4 H RBC 3.31 L Hgb 9.1 L Hct 27.6 L MCV 84 MCH 27.5 MCHC 32.9 RDW 17.2 H Plt Count 231 Seg Neutrophils % 85.3 H Lymphocytes % 8.0 L Monocytes % 6.4 Eosinophils % 0.1 Basophils % 0.2 Absolute Neutrophils 9.7 H Absolute Lymphocytes 0.9 Absolute Monocytes 0.7 Absolute Eosinophils 0.0 Absolute Basophils 0.0 Sodium 135.6 L Potassium 3.9 Chloride 100 Carbon Dioxide 26 Anion Gap 10 BUN 20 Creatinine 0.75 Est GFR ( Amer) > 60 Est GFR (Non-Af Amer) > 60 Glucose 84 Calcium 9.0 Stool Occult Blood NEGATIVE 05/03/16 05/03/16 05/03/16 06:16 06:16 12:20 Creatine Kinase 2104 H 1856 H CK-MB (CK-2) 12.70 H Troponin I 0.983 NT-Pro-B Natriuret Pep 05/03/16 05/03/16 05/03/16 12:20 18:10 18:10 Creatine Kinase 1870 H CK-MB (CK-2) 10.90 H 11.20 H Troponin I 0.801 0.777 NT-Pro-B Natriuret Pep 05/04/16 05/04/16 05/05/16 04:39 04:39 04:32 Creatine Kinase 1525 H 553 H CK-MB (CK-2) Troponin I NT-Pro-B Natriuret Pep 4120 H Impressions: Head CT 05/03/16 00:00 IMPRESSION: MILD CHRONIC CHANGES OF ATROPHY AND MICROVASCULAR ISCHEMIA. NO ACUTE PROCESS. Chest/Abdomen CTA 05/04/16 00:00 IMPRESSION: 1. No PE. 2. UIP pattern consistent with pulmonary fibrosis and possible superimposed infection. Clinical correlation is needed. 3. Right liver mass grossly unchanged from 04/24/2015. Chest X-Ray 05/05/16 06:00 IMPRESSION: No interval change. KUB X-Ray 05/07/16 00:00 IMPRESSION: Suboptimal exam. NG tube coiled in the stomach with the tip in the region of the GE junction. Assessment & Plan - Diagnosis (1) Acute hypoxemic respiratory failure Is this a current diagnosis for this admission?: YesPlan: Continue current oxygen supplementation, including BiPAP at night. (2) Atrial fibrillation with RVR Is this a current diagnosis for this admission?: YesPlan: The rhythm is now a normal sinus. He continues on amiodarone but the patient has evidence of pulmonary fibrosis on CT scan. Cardiology has recommended stopping amiodarone at discharge. (3) Pneumonia Qualifiers: Pneumonia type: due to unspecified organism Laterality: right Lung location: middle lobe of lung Qualified Code(s): J18.1 - Lobar pneumonia , unspecified organism Is this a current diagnosis for this admission?: YesPlan: He continues on cefepime, Levaquin, IV fluids, steroids and nebulized bronchodilators. His respiratory status is gradually improving. (4) COPD exacerbation Is this a current diagnosis for this admission?: YesPlan: Continue Rx as above. (5) Rhabdomyolysis Is this a current diagnosis for this admission?: YesPlan: Continue IV hydration. Monitor total CK. (6) Severe malnutrition Is this a current diagnosis for this admission?: YesPlan: He is receiving tube feedings per NG. If his mental status continues to improve we may be able to start a diet soon. (7) Alcohol dependence Is this a current diagnosis for this admission?: Yes (8) Liver mass Is this a current diagnosis for this admission?: YesPlan: This is apparently unchanged in size compared to last year's CT scan. This will require outpatient follow-up.
[2016-05-09] MEDS: PREDNISONE 10 MG TABLET NG SCH (18:02)
--- NOTE | 2016-05-09 21:58 | PROGRESS NOTE E ---
Progress Note NAME: LIZABETH MICHAELS : 1940 AGE: 75Y DATE: 05/09/2016 ROOM: 527 SUBJECTIVE: Note that the patient appears to be very confused. He remains in sinus rhythm. He is on tube feedings. No other history can be obtained. OBJECTIVE: GENERAL: The patient appears to be cachectic and chronically ill looking patient. VITAL SIGNS: He is afebrile with a temperature of 97.6 degrees Fahrenheit. Pulse is 76 beats per minute, blood pressure is 98/62, respirations are 18 per minute, O2 saturations are 100% on BiPAP. HEENT: Head is atraumatic, normocephalic. Eyes: Pupils are equal, round, regular and reactive to light and accommodation. Extraocular movements are normal. ENT is negative. NECK: Supple. There is no JVD. Carotids are equal. There is no bruit. There is no lymphadenopathy. There is no goiter. Trachea is central. LUNGS: Fairly clear to auscultation and percussion. HEART: S1 and S2 are heard. There is a systolic murmur in the left sternal border and the apex. There is no S3 gallop. There is no S4 gallop. There is no rub. ABDOMEN: Soft, nontender. There is no hepatosplenomegaly. Bowel sounds are heard. EXTREMITIES: Pedal pulses are diminished. Leg pulses are diminished. There is trace pedal edema. Femorals are diminished. There are no femoral bruits. There is no cyanosis or clubbing. There is no calf tenderness. CENTRAL NERVOUS SYSTEM: The patient is alert but is not able to participate in neurological exam but moves all 4 extremities. PSYCHIATRIC: The patient does not appear to be agitated although he is very confused. DIAGNOSTIC DATA: The patient's EKG shows sinus rhythm with APC. His white count is 11,400, hemoglobin is 9.1, hematocrit is 27.6, and his platelet count is 231,000. The patient's sodium is 135.6, potassium is 3.9, chloride is 100, CO2 is 26, BUN is 20, creatinine 0.05, GFR is greater than 60, calcium is 9.0. Note that on May 07, the patient's liver function tests showed an elevated AST of 130 and ALT of 135, but these are coming down. IMPRESSION: 1. Paroxysmal atrial fibrillation now in sinus rhythm on amiodarone but need to check a thyroid function test and also keep an eye on the liver function tests. 2. Congestive heart failure, diastolic, seems to be acute diastolic heart failure, at present compensated. 3. Elevated troponin I most likely secondary to congestive heart failure with atrial fibrillation, rapid ventricular response and rhabdomyolysis. 4. Rhabdomyolysis. His CPKs have been coming down. 5. History of alcohol dependency. 6. COPD. At present no evidence of exacerbation. 7. Elevated LFTs. 8. 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 RECOMMENDATIONS: Would recommend continuing his amiodarone but would be very careful. Would check the patient's thyroid function tests and also liver function tests. Would continue tube feedings. Would continue anti-COPD treatment. Continue antibiotics. Continue thiamine daily. The patient is also on prednisone 10 mg via NG tube b.i.d. He is also on thiamine. He is on IV fluids at 75 mL/hr with 20 mEq of potassium and he is also on tube feedings. Would continue the same. The patient is not a candidate for chronic anticoagulation treatment and also would be very careful about the patient being on amiodarone due to above reasons mentioned. Note: 30 minutes spent on this patient with more than 50% of the time spent on direct patient care and also review of his medications and discussions with the hospitalist taking care of the patient. Note that the patient is a FULL CODE. His daughter is his surrogate healthcare decision maker. Thanking you. DICTATING PHYSICIAN: ELIA SHABAZZ M.D. [id number] MARYLOU#: [id number] ID: [id number] JOB#: [id number] ACCT: [id number] cc: >
[2016-05-09] MEDS: LORAZEPAM INJ 2 MG/1 ML VIAL IV PRN (22:52)
[2016-05-10] MEDS: ALBUTEROL SULFATE 0.083% NEB 2.5 MG/3 ML AMPUL NEB SCH ×4 (02:11→19:28)
[2016-05-10 05:20] LABS: HEMATOCRIT 27.4 % (37.9-51.0); HEMOGLOBIN 9.2 g/dL (13.5-17.0); HGB HCT DIFFERENCE 0.2; MEAN CORPUSCULAR HEMOGLOBIN 27.8 pg (27.0-33.4); MEAN CORPUSCULAR HGB CONC 33.4 g/dL (32.0-36.0); MEAN CORPUSCULAR VOLUME 83 fl (80-97); RED CELL DISTRIBUTION WIDTH 17.2 % (11.5-14.0); WHITE BLOOD COUNT 12.5 10^3/uL (4.0-10.5)
[2016-05-10 05:29] LABS: ALANINE AMINOTRANSFERASE 262 U/L (21-72); ALBUMIN 2.6 g/dL (3.5-5.0); ALKALINE PHOSPHATASE 137 U/L (38-126); ANION GAP 9 (5-19); ASPARTATE AMINO TRANSFERASE 194 U/L (17-59); BILIRUBIN,DIRECT 0.3 mg/dL (0.0-0.4); BILIRUBIN,TOTAL 0.5 mg/dL (0.2-1.3); BLOOD UREA NITROGEN 17 mg/dL (7-20); CALCIUM 8.7 mg/dL (8.4-10.2); CARBON DIOXIDE 27 mmol/L (22-30); CHLORIDE 99 mmol/L (98-107); CREATINE KINASE 130 U/L (55-170); CREATININE RESULT 0.65 mg/dL (0.52-1.25); GLUCOSE 88 mg/dL (75-110); POTASSIUM 4.2 mmol/L (3.6-5.0); SODIUM 134.7 mmol/L (137-145); TOTAL PROTEIN 5.6 g/dL (6.3-8.2)
[2016-05-10 05:53] LABS: FREE T3 2.77 pg/mL (2.77-5.27)
[2016-05-10 05:56] LABS: BAND NEUTROPHILS % (MANUAL) 1 % (3-5); BASOPHILS % (MANUAL) 0 % (0-2); EOSINOPHILS % (MANUAL) 0 % (0-6); LYMPHOCYTES % (MANUAL) 6 % (13-45); TOTAL CELLS COUNTED 100
[2016-05-10 05:57] LABS: ANISOCYTOSIS 1+; HYPOCHROMASIA SLIGHT; SCHISTOCYTES SLIGHT; TARGET CELLS SLIGHT; TEAR DROP CELLS SLIGHT; TOXIC GRANULATION SLIGHT; TOXIC VACUOLATION PRESENT
[2016-05-10 06:07] LABS: THYROID STIMULATING HORMONE 7.32 uIU/mL (0.47-4.68)
[2016-05-10] MEDS: HEPARIN SOD (PORCINE) 5,000 UNIT/ML 1 ML SYRINGE SUBCUT SCH ×3 (06:19→22:40)
[2016-05-10] MEDS ORDERED: LEVOTHYROXINE SODIUM 0.025 MG TABLET NG ONE (11:00)
[2016-05-10] MEDS ORDERED: DILTIAZEM HCL 30 MG TABLET NG ONE (11:00)
[2016-05-10] MEDS: THIAMINE HCL 100 MG, FOLIC ACID 1 MG in NORMAL SALINE 50 ML IV SCH (11:08)
[2016-05-10] MEDS: ASPIRIN 325 MG TABLET NG SCH (11:08)
[2016-05-10] MEDS: POTASSI CL 20 MEQ/D5-1/2NS 1L 1,000 ML IV PRN (11:09)
[2016-05-10] MEDS: PREDNISONE 10 MG TABLET NG SCH ×2 (11:09→17:28)
[2016-05-10] MEDS: FERROUS SULFATE LIQUID 300 MG/5 ML UDC NG SCH ×2 (11:10→17:28)
[2016-05-10] MEDS: LACTULOSE SYRUP 20 GM/30 ML UDCUP NG SCH ×2 (11:10→17:26)
[2016-05-10] MEDS: CEFEPIME HCL 2 GM in DEXTROSE 5%-WATER 50 ML IV SCH (12:09)
[2016-05-10] MEDS: DILTIAZEM HCL 30 MG TABLET NG SCH ×2 (16:06→22:37)
--- NOTE | 2016-05-10 17:05 | PDOC PROGRESS REPORT ---
Subjective Progress Note for:: 05/10/16 Subjective:: Patient seen on morning rounds. He remains confused, obtunded, and agitated at times. He presently is not verbal. He has a sitter at bedside. He has soft wrist restraints to 2 NG tube and oxygen. He is receiving enteral feedings through the NG tube. There is presently no family available. Review of systems are unobtainable due to patient's presentation. Physical Exam Vital Signs: Temp Pulse Resp BP Pulse Ox 97.6 F 64 16 88/46 L 99 05/10/16 16:00 05/10/16 16:00 05/10/16 16:00 05/10/16 16:00 05/10/16 16:00 Intake & Output 05/09/16 05/10/16 05/11/16 06:59 06:59 06:59 Intake Total 3135 1472 428 Output Total 100 Balance 3135 1372 428 Weight 56.4 kg 56.2 kg General appearance: PRESENT: no acute distress, well-developed, other - disheveled Head exam: PRESENT: atraumatic, normocephalic Eye exam: PRESENT: conjunctiva pink, EOMI, PERRLA. ABSENT: scleral icterus Ear exam: PRESENT: normal external ear exam Mouth exam: PRESENT: moist, tongue midline Neck exam: ABSENT: carotid bruit, JVD, lymphadenopathy, thyromegaly Respiratory exam: PRESENT: clear to auscultation skye. ABSENT: rales, rhonchi, wheezes Cardiovascular exam: PRESENT: irregular rhythm. ABSENT: diastolic murmur, rubs , systolic murmur Pulses: PRESENT: normal dorsalis pedis pul Vascular exam: PRESENT: normal capillary refill GI/Abdominal exam: PRESENT: normal bowel sounds, soft. ABSENT: distended, guarding, mass, organolmegaly, rebound, tenderness Rectal exam: PRESENT: deferred Extremities exam: PRESENT: full ROM. ABSENT: calf tenderness, clubbing, pedal edema Neurological exam: PRESENT: awake, CN II-XII grossly intact. ABSENT: motor sensory deficit Psychiatric exam: PRESENT: flat affect Results Laboratory Results: 05/10/16 04:19 05/10/16 04:19 05/10/16 05/10/16 05/10/16 04:19 04:19 04:19 WBC 12.5 H RBC 3.30 L Hgb 9.2 L Hct 27.4 L MCV 83 MCH 27.8 MCHC 33.4 RDW 17.2 H Plt Count 223 Seg Neutrophils % Not Reportable Lymphocytes % Not Reportable Monocytes % Not Reportable Eosinophils % Not Reportable Basophils % Not Reportable Absolute Neutrophils Not Reportable Absolute Lymphocytes Not Reportable Absolute Monocytes Not Reportable Absolute Eosinophils Not Reportable Absolute Basophils Not Reportable Sodium 134.7 L Potassium 4.2 Chloride 99 Carbon Dioxide 27 Anion Gap 9 BUN 17 Creatinine 0.65 Est GFR ( Amer) > 60 Est GFR (Non-Af Amer) > 60 Glucose 88 Calcium 8.7 Total Bilirubin 0.5 AST 194 H ALT 262 H Alkaline Phosphatase 137 H Total Protein 5.6 L Albumin 2.6 L TSH 7.32 H Free T4 0.98 Free T3 pg/mL 2.77 05/03/16 05/03/16 05/03/16 06:16 06:16 12:20 Creatine Kinase 2104 H 1856 H CK-MB (CK-2) 12.70 H Troponin I 0.983 NT-Pro-B Natriuret Pep 05/03/16 05/03/16 05/03/16 12:20 18:10 18:10 Creatine Kinase 1870 H CK-MB (CK-2) 10.90 H 11.20 H Troponin I 0.801 0.777 NT-Pro-B Natriuret Pep 05/04/16 05/04/16 05/05/16 04:39 04:39 04:32 Creatine Kinase 1525 H 553 H CK-MB (CK-2) Troponin I NT-Pro-B Natriuret Pep 4120 H 05/10/16 04:19 Creatine Kinase 130 CK-MB (CK-2) Troponin I NT-Pro-B Natriuret Pep Impressions: Head CT 05/03/16 00:00 IMPRESSION: MILD CHRONIC CHANGES OF ATROPHY AND MICROVASCULAR ISCHEMIA. NO ACUTE PROCESS. Chest/Abdomen CTA 05/04/16 00:00 IMPRESSION: 1. No PE. 2. UIP pattern consistent with pulmonary fibrosis and possible superimposed infection. Clinical correlation is needed. 3. Right liver mass grossly unchanged from 04/24/2015. Chest X-Ray 05/05/16 06:00 IMPRESSION: No interval change. KUB X-Ray 05/07/16 00:00 IMPRESSION: Suboptimal exam. NG tube coiled in the stomach with the tip in the region of the GE junction. Assessment & Plan - Diagnosis (1) Encephalopathy Is this a current diagnosis for this admission?: YesPlan: Most likely secondary to alcohol abuse and elevated ammonia levels. He is getting lactulose ammonia levels are trending downward (2) Acute hypoxemic respiratory failure Is this a current diagnosis for this admission?: YesPlan: Improving with present treatment. (3) Atrial fibrillation with RVR Is this a current diagnosis for this admission?: YesPlan: Presently rate controlled the patient will have echocardiogram. Dr. Rowan saw the patient in consult for cardiology. He stopped amiodarone therapy due to liver dysfunction. He will switched to Cardizem therapy. Transthoracic echo pending. (4) COPD exacerbation Is this a current diagnosis for this admission?: YesPlan: Continue oxygen, nebulizers, and steroids. (5) Congestive heart failure Qualifiers: Congestive heart failure type: diastolic Congestive heart failure chronicity: acute Qualified Code(s): I50.31 - Acute diastolic (congestive ) heart failure Is this a current diagnosis for this admission?: YesPlan: Transthoracic echo pending, cardiology is following. (6) Elevated LFTs Is this a current diagnosis for this admission?: YesPlan: Secondary to chronic alcoholism. (7) Elevated troponin Is this a current diagnosis for this admission?: YesPlan: Cardiology is following. Patient is not a candidate for any invasive testing. - Time Time Spent with patient: 25-34 minutes Critical Time spent with patient: 15-24 minutes Medications reviewed and adjusted accordingly: Yes
[2016-05-10] MEDS: LORAZEPAM INJ 2 MG/1 ML VIAL IV PRN ×2 (20:13→23:44)
[2016-05-11] MEDS: ALBUTEROL SULFATE 0.083% NEB 2.5 MG/3 ML AMPUL NEB SCH ×4 (01:48→19:29)
[2016-05-11] MEDS: POTASSI CL 20 MEQ/D5-1/2NS 1L 1,000 ML IV PRN ×3 (02:26→23:09)
[2016-05-11 04:51] LABS: ALANINE AMINOTRANSFERASE 524 U/L (21-72); ALBUMIN 2.6 g/dL (3.5-5.0); ALKALINE PHOSPHATASE 144 U/L (38-126); ANION GAP 9 (5-19); ASPARTATE AMINO TRANSFERASE 322 U/L (17-59); BILIRUBIN,DIRECT 0.3 mg/dL (0.0-0.4); BILIRUBIN,TOTAL 0.5 mg/dL (0.2-1.3); BLOOD UREA NITROGEN 16 mg/dL (7-20); CALCIUM 8.6 mg/dL (8.4-10.2); CARBON DIOXIDE 26 mmol/L (22-30); CHLORIDE 100 mmol/L (98-107); CREATININE RESULT 0.69 mg/dL (0.52-1.25); GLUCOSE 102 mg/dL (75-110); SODIUM 135.2 mmol/L (137-145); TOTAL PROTEIN 5.4 g/dL (6.3-8.2)
[2016-05-11] MEDS: HEPARIN SOD (PORCINE) 5,000 UNIT/ML 1 ML SYRINGE SUBCUT SCH ×3 (06:21→23:08)
[2016-05-11] MEDS: DILTIAZEM HCL 30 MG TABLET NG SCH ×3 (06:22→23:09)
[2016-05-11] MEDS: LACTULOSE SYRUP 20 GM/30 ML UDCUP NG SCH ×4 (10:41→23:23)
[2016-05-11] MEDS: FERROUS SULFATE LIQUID 300 MG/5 ML UDC NG SCH ×2 (10:42→17:44)
[2016-05-11] MEDS: ASPIRIN 325 MG TABLET NG SCH (10:44)
[2016-05-11] MEDS: THIAMINE HCL 100 MG, FOLIC ACID 1 MG in NORMAL SALINE 50 ML IV SCH (10:44)
[2016-05-11] MEDS: PREDNISONE 10 MG TABLET NG SCH ×2 (10:45→17:44)
[2016-05-11] MEDS: LEVOTHYROXINE SODIUM 0.025 MG TABLET NG SCH (10:45)
--- NOTE | 2016-05-11 16:34 | PDOC PROGRESS REPORT ---
Subjective Progress Note for:: 05/11/16 Subjective:: Patient seen on morning rounds. He remains confused, obtunded, and agitated at times. He presently is not verbal. He has a sitter at bedside. He has soft wrist restraints to 2 NG tube and oxygen. He is receiving enteral feedings through the NG tube. There is presently no family available. Review of systems are unobtainable due to patient's presentation. Physical Exam Vital Signs: Temp Pulse Resp BP Pulse Ox 97.6 F 81 16 109/55 L 98 05/11/16 15:40 05/11/16 15:40 05/11/16 15:40 05/11/16 15:40 05/11/16 15:40 Intake & Output 05/10/16 05/11/16 05/12/16 06:59 06:59 06:59 Intake Total 1472 2826 421 Output Total 100 150 Balance 1372 2676 421 Weight 56.2 kg 57.3 kg General appearance: PRESENT: no acute distress, thin, well-developed, other - disheveled Head exam: PRESENT: atraumatic, normocephalic Eye exam: PRESENT: conjunctiva pink, EOMI, PERRLA. ABSENT: scleral icterus Ear exam: PRESENT: normal external ear exam Mouth exam: PRESENT: moist, tongue midline Teeth exam: PRESENT: edentulous, poor dentation Neck exam: ABSENT: carotid bruit, JVD, lymphadenopathy, thyromegaly Respiratory exam: PRESENT: clear to auscultation skye. ABSENT: rales, rhonchi, wheezes Cardiovascular exam: PRESENT: RRR. ABSENT: diastolic murmur, rubs, systolic murmur Pulses: PRESENT: normal dorsalis pedis pul Vascular exam: PRESENT: normal capillary refill GI/Abdominal exam: PRESENT: diminished bowel sounds, hypoactive bowel sounds, soft Rectal exam: PRESENT: deferred Extremities exam: PRESENT: full ROM. ABSENT: calf tenderness, clubbing, pedal edema Neurological exam: PRESENT: altered, CN II-XII grossly intact. ABSENT: motor sensory deficit Psychiatric exam: PRESENT: appropriate affect, normal mood. ABSENT: homicidal ideation, suicidal ideation Skin exam: PRESENT: dry, intact, warm. ABSENT: cyanosis, rash Results Laboratory Results: 05/10/16 04:19 05/11/16 03:44 05/11/16 03:44 Sodium 135.2 L Potassium 4.0 Chloride 100 Carbon Dioxide 26 Anion Gap 9 BUN 16 Creatinine 0.69 Est GFR ( Amer) > 60 Est GFR (Non-Af Amer) > 60 Glucose 102 Calcium 8.6 Total Bilirubin 0.5 AST 322 H ALT 524 H Alkaline Phosphatase 144 H Total Protein 5.4 L Albumin 2.6 L 05/03/16 05/03/16 05/03/16 06:16 06:16 12:20 Creatine Kinase 2104 H 1856 H CK-MB (CK-2) 12.70 H Troponin I 0.983 NT-Pro-B Natriuret Pep 05/03/16 05/03/16 05/03/16 12:20 18:10 18:10 Creatine Kinase 1870 H CK-MB (CK-2) 10.90 H 11.20 H Troponin I 0.801 0.777 NT-Pro-B Natriuret Pep 05/04/16 05/04/16 05/05/16 04:39 04:39 04:32 Creatine Kinase 1525 H 553 H CK-MB (CK-2) Troponin I NT-Pro-B Natriuret Pep 4120 H 05/10/16 04:19 Creatine Kinase 130 CK-MB (CK-2) Troponin I NT-Pro-B Natriuret Pep Impressions: Head CT 05/03/16 00:00 IMPRESSION: MILD CHRONIC CHANGES OF ATROPHY AND MICROVASCULAR ISCHEMIA. NO ACUTE PROCESS. Chest/Abdomen CTA 05/04/16 00:00 IMPRESSION: 1. No PE. 2. UIP pattern consistent with pulmonary fibrosis and possible superimposed infection. Clinical correlation is needed. 3. Right liver mass grossly unchanged from 04/24/2015. Chest X-Ray 05/05/16 06:00 IMPRESSION: No interval change. KUB X-Ray 05/07/16 00:00 IMPRESSION: Suboptimal exam. NG tube coiled in the stomach with the tip in the region of the GE junction. Assessment & Plan - Diagnosis (1) Encephalopathy Is this a current diagnosis for this admission?: YesPlan: Most likely secondary to alcohol abuse and elevated ammonia levels. He is getting lactulose ammonia levels are trending downward. Will increase lactulose to q6h (2) Acute hypoxemic respiratory failure Is this a current diagnosis for this admission?: YesPlan: Improving with present treatment. (3) Atrial fibrillation with RVR Is this a current diagnosis for this admission?: YesPlan: Presently rate controlled the patient will have echocardiogram. Dr. Rowan saw the patient in consult for cardiology. He presently is in NSR (4) COPD exacerbation Is this a current diagnosis for this admission?: YesPlan: Continue oxygen, nebulizers, and steroids. (5) Congestive heart failure Qualifiers: Congestive heart failure type: diastolic Congestive heart failure chronicity: acute Qualified Code(s): I50.31 - Acute diastolic (congestive ) heart failure Is this a current diagnosis for this admission?: YesPlan: Transthoracic echo pending, cardiology is following. (6) Elevated LFTs Is this a current diagnosis for this admission?: YesPlan: Secondary to chronic alcoholism. (7) Elevated troponin Is this a current diagnosis for this admission?: YesPlan: Cardiology is following. Patient is not a candidate for any invasive testing. - Time Time Spent with patient: 35 or more minutes Critical Time spent with patient: 25-34 minutes Medications reviewed and adjusted accordingly: Yes
[2016-05-11] MEDS: LORAZEPAM INJ 2 MG/1 ML VIAL IV PRN (23:22)
--- NOTE | 2016-05-12 00:23 | PROGRESS NOTE E ---
Progress Note NAME: LIZABETH MICHAELS : 1940 AGE: 75Y DATE: 05/10/2016 ROOM: 527 SUBJECTIVE: Note that the patient appear to be confused and is also short of breath and is on BiPAP. He still remains in sinus rhythm. He has no pedal edema but he has some healing ulcers on his legs. OBJECTIVE: GENERAL: On examination, the patient appears to be cachectic and chronically ill. VITAL SIGNS: He is afebrile with a temperature of 97.9 degrees Fahrenheit, pulse is 60 per minute, blood pressure is 95/54, respirations are 18 per minute, O2 sats are 98% on BiPAP of 10 L. Earlier he was on simple mask of 6 L and sats and the patient kept removing the simple mask; hence, he is on BiPAP. HEENT: Head is normocephalic, atraumatic. Eyes: Pupils are equal, round, regular, reactive to light and accommodation. Extraocular movements are normal. ENT is negative. NECK: Supple. There is no JVD. Carotids are equal. There is no bruit. There is no lymphadenopathy. There is no goiter. Trachea is central. LUNGS: Show diminished air entry, prolonged expiration with scattered rhonchi. HEART: S1 and S2 are heard. There is no S3 gallop. There is no S4 gallop. There is a systolic murmur in the left sternal border and the apex. There is no rub. ABDOMEN: Soft, nontender. There is no hepatosplenomegaly. Bowel sounds are heard. EXTREMITIES: Pedal pulses are diminished. Leg pulses are diminished. There is no pedal edema. Femorals are diminished. There are no femoral bruits. There is no cyanosis or clubbing. There is no calf tenderness. CENTRAL NERVOUS SYSTEM: The patient is very drowsy and somnolent but is not able to pass a neurologic exam but moves all 4 extremities. PSYCHIATRIC: He does not appear to be agitated but he is somnolent. No other psychiatric findings at present. DIAGNOSTIC DATA: The patient's white count is 12,500, hemoglobin is 9.2, hematocrit is 27.4, and the platelet count is 233,000. The patient's liver function tests mostly seem to be abnormal. The patient's AST is 322, ALT is 524 and the patient's alkaline phosphatase is 144. The patient's thyroid function tests show a TSH of 7.32 and free T4 of 0.98 and free T3 of 2.77. IMPRESSION: 1. PAROXYSMAL ATRIAL FIBRILLATION. On amiodarone with abnormal LFTs and evidence of hypothyroidism. Hence, we will stop this and replace with a beta-liya. 2. CONGESTIVE HEART FAILURE. Diastolic seems to be acute diastolic failure at present compensated. 3. ELEVATED TROPONIN I MOST LIKELY SECONDARY TO CONGESTIVE HEART FAILURE AND ATRIAL FIBRILLATION WITH RAPID VENTRICULAR RESPONSE--AT PRESENT, PATIENT IN SINUS RHYTHM, AND ALSO SECONDARY TO RHABDOMYOLYSIS. 5. HISTORY OF ALCOHOL DEPENDENCY. 6. HYPOTHYROIDISM. 7. COPD. 8. ELEVATED LFTs FURTHER INCREASED. 9. 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 RECOMMENDATIONS: In view of this, would stop the patient's amiodarone and switch the patient to a beta-liya through the NG tube. Continue his tube feedings. Continue his BiPAP. Discussed the patient is not a candidate for chronic anticoagulation treatment. TIME SPENT: Note: 35 minutes spent on this patient with more than 50% of the time spent on direct patient care and also review of his medication and discussion with the hospitalist taking care of the patient. Would recommend having a family meeting to make the patient a DNR. DICTATING PHYSICIAN: ELIA SHABAZZ M.D. [id number] MARYLOU#: [id number] ID: [id number] JOB#: [id number] ACCT: [id number] cc: >
[2016-05-12] MEDS: ALBUTEROL SULFATE 0.083% NEB 2.5 MG/3 ML AMPUL NEB SCH ×4 (02:09→20:25)
[2016-05-12 05:06] LABS: BLOOD UREA NITROGEN 16 mg/dL (7-20); CALCIUM 8.9 mg/dL (8.4-10.2); CREATININE RESULT 0.62 mg/dL (0.52-1.25); GLUCOSE 100 mg/dL (75-110)
[2016-05-12 05:07] LABS: ALANINE AMINOTRANSFERASE 656 U/L (21-72); ALBUMIN 2.6 g/dL (3.5-5.0); ALKALINE PHOSPHATASE 178 U/L (38-126); ANION GAP 8 (5-19); ASPARTATE AMINO TRANSFERASE 393 U/L (17-59); BILIRUBIN,DIRECT 0.3 mg/dL (0.0-0.4); BILIRUBIN,TOTAL 0.6 mg/dL (0.2-1.3); CARBON DIOXIDE 26 mmol/L (22-30); CHLORIDE 100 mmol/L (98-107); POTASSIUM 4.3 mmol/L (3.6-5.0); TOTAL PROTEIN 5.3 g/dL (6.3-8.2)
[2016-05-12] MEDS: HEPARIN SOD (PORCINE) 5,000 UNIT/ML 1 ML SYRINGE SUBCUT SCH (05:50)
[2016-05-12] MEDS: DILTIAZEM HCL 30 MG TABLET NG SCH ×3 (05:51→21:21)
[2016-05-12] MEDS: LACTULOSE SYRUP 20 GM/30 ML UDCUP NG SCH ×3 (05:51→18:19)
[2016-05-12] MEDS: LEVOTHYROXINE SODIUM 0.025 MG TABLET NG SCH (09:32)
[2016-05-12] MEDS: FERROUS SULFATE LIQUID 300 MG/5 ML UDC NG SCH ×2 (09:32→18:19)
[2016-05-12] MEDS: PREDNISONE 10 MG TABLET NG SCH ×2 (09:33→18:19)
[2016-05-12] MEDS: THIAMINE HCL 100 MG, FOLIC ACID 1 MG in NORMAL SALINE 50 ML IV SCH (09:37)
--- NOTE | 2016-05-12 11:14 | PDOC PROGRESS REPORT ---
Subjective Progress Note for:: 05/12/16 Subjective:: Patient seen on morning rounds. He remains confused, obtunded, and agitated at times. He presently is not verbal. He has a sitter at bedside. He has soft wrist restraints to 2 NG tube and oxygen. He is receiving enteral feedings through the NG tube. There is presently no family available. Review of systems are unobtainable due to patient's presentation. Physical Exam Vital Signs: Temp Pulse Resp BP Pulse Ox 98.0 F 90 15 113/61 97 05/12/16 08:39 05/12/16 08:39 05/12/16 08:39 05/12/16 08:39 05/12/16 07:58 Intake & Output 05/11/16 05/12/16 05/13/16 06:59 06:59 06:59 Intake Total 2826 2658 Output Total 150 Balance 2676 2658 Weight 57.3 kg 56.3 kg General appearance: PRESENT: no acute distress, disheveled, thin, well-developed , other - malnourished Head exam: PRESENT: atraumatic, normocephalic Eye exam: PRESENT: conjunctiva pink, EOMI, PERRLA. ABSENT: scleral icterus Ear exam: PRESENT: normal external ear exam Mouth exam: PRESENT: dry mucosa, neck supple, tongue midline Teeth exam: PRESENT: edentulous Neck exam: ABSENT: carotid bruit, JVD, lymphadenopathy, thyromegaly Respiratory exam: PRESENT: rhonchi, symmetrical, unlabored. ABSENT: rales, wheezes Cardiovascular exam: PRESENT: RRR. ABSENT: diastolic murmur, rubs, systolic murmur Pulses: PRESENT: normal dorsalis pedis pul Vascular exam: PRESENT: normal capillary refill GI/Abdominal exam: PRESENT: normal bowel sounds, soft. ABSENT: distended, guarding, mass, organolmegaly, rebound, tenderness Rectal exam: PRESENT: deferred Extremities exam: PRESENT: other - multiple bruised areas. ABSENT: calf tenderness, clubbing, pedal edema Neurological exam: PRESENT: alert, altered, awake, CN II-XII grossly intact Psychiatric exam: PRESENT: agitated Focused psych exam: PRESENT: restlessness Skin exam: PRESENT: abrasion, erythema, jaundice, other - large black eschar on nasal septum from NG tube tape Results Laboratory Results: 05/10/16 04:19 05/12/16 04:31 05/12/16 05/12/16 04:31 04:31 Sodium 134.0 L Potassium 4.3 Chloride 100 Carbon Dioxide 26 Anion Gap 8 BUN 16 Creatinine 0.62 Est GFR ( Amer) > 60 Est GFR (Non-Af Amer) > 60 Glucose 100 Calcium 8.9 Total Bilirubin 0.6 AST 393 H ALT 656 H Alkaline Phosphatase 178 H Ammonia < 8.7 L Total Protein 5.3 L Albumin 2.6 L 05/03/16 05/03/16 05/03/16 06:16 06:16 12:20 Creatine Kinase 2104 H 1856 H CK-MB (CK-2) 12.70 H Troponin I 0.983 NT-Pro-B Natriuret Pep 05/03/16 05/03/16 05/03/16 12:20 18:10 18:10 Creatine Kinase 1870 H CK-MB (CK-2) 10.90 H 11.20 H Troponin I 0.801 0.777 NT-Pro-B Natriuret Pep 05/04/16 05/04/16 05/05/16 04:39 04:39 04:32 Creatine Kinase 1525 H 553 H CK-MB (CK-2) Troponin I NT-Pro-B Natriuret Pep 4120 H 05/10/16 04:19 Creatine Kinase 130 CK-MB (CK-2) Troponin I NT-Pro-B Natriuret Pep Impressions: Head CT 05/03/16 00:00 IMPRESSION: MILD CHRONIC CHANGES OF ATROPHY AND MICROVASCULAR ISCHEMIA. NO ACUTE PROCESS. Chest/Abdomen CTA 05/04/16 00:00 IMPRESSION: 1. No PE. 2. UIP pattern consistent with pulmonary fibrosis and possible superimposed infection. Clinical correlation is needed. 3. Right liver mass grossly unchanged from 04/24/2015. Chest X-Ray 05/05/16 06:00 IMPRESSION: No interval change. KUB X-Ray 05/07/16 00:00 IMPRESSION: Suboptimal exam. NG tube coiled in the stomach with the tip in the region of the GE junction. Assessment & Plan - Diagnosis (1) Encephalopathy Is this a current diagnosis for this admission?: YesPlan: Most likely secondary to alcohol abuse and elevated ammonia levels. He is getting lactulose ammonia levels are now <8.7. AST and ALT continue to rise (2) Acute hypoxemic respiratory failure Is this a current diagnosis for this admission?: YesPlan: Improving with present treatment. High risk for aspiration. Attempting to contact daughter with no success yet (3) Atrial fibrillation with RVR Is this a current diagnosis for this admission?: YesPlan: Presently rate controlled the patient will have echocardiogram. Dr. Rowan saw the patient in consult for cardiology. He presently is in NSR (4) COPD exacerbation Is this a current diagnosis for this admission?: YesPlan: Continue oxygen, nebulizers, and steroids. (5) Congestive heart failure Qualifiers: Congestive heart failure type: diastolic Congestive heart failure chronicity: acute Qualified Code(s): I50.31 - Acute diastolic (congestive ) heart failure Is this a current diagnosis for this admission?: YesPlan: Transthoracic echo pending, cardiology is following. (6) Elevated LFTs Is this a current diagnosis for this admission?: YesPlan: Secondary to chronic alcoholism. (7) Elevated troponin Is this a current diagnosis for this admission?: YesPlan: Cardiology is following. Patient is not a candidate for any invasive testing. - Time Time Spent with patient: 25-34 minutes Critical Time spent with patient: 15-24 minutes Medications reviewed and adjusted accordingly: Yes
--- NOTE | 2016-05-12 13:38 | PROGRESS NOTE E ---
Progress Note NAME: LIZABETH MICHAELS : 1940 AGE: 75Y DATE: 05/11/2016 ROOM: 527 SUBJECTIVE: Note that the patient appears to be very confused. He remains in sinus rhythm. He is also having alcohol withdrawal and is in restraints. He has tube feedings. No other history obtainable. The patient appears to be cachectic and chronically ill looking. OBJECTIVE: He is afebrile with a temperature of 97.8 degrees Fahrenheit. Pulse 75 beats per minute. Blood pressure 94/52, respirations 17 per minute. O2 sat is 100% on FiO2 of 35% BiPAP. Head is atraumatic/normocephalic. ENT is negative. Neck is supple. There is no JVD. There is no bruit, no lymphadenopathy. There is no *------*. Lungs show scattered rhonchi bilaterally. There is diminished air entry and prolonged expiration. S1, S2 is heard. There is no S3 gallop, no S4 gallop. There is no rub. Systolic murmur left sternal border apex. Abdomen is soft and nontender. There is no hepatosplenomegaly. Bowel sounds are heard. Extremities: Pedal pulses are diminished. Leg pulses are diminished. There is trace pedal edema. There are healed abrasions that are superficial wounds on the skin on the lower extremities. There is no cyanosis or clubbing. There is trace pedal edema. [employer]: The patient is somnolent and agitated with signs of alcohol withdrawal, but seems to move all 4 extremities in spite of him being in restraints. Psychiatric not examined. The patient's sodium is 135.2, potassium 4.0, chloride 100, CO2 of 26. The patient's BUN is 16, creatinine 0.69, GFR greater than 60. Glucose 102. Calcium is 8.6. His liver function tests show an AST of 322, ALT of 524, alkaline phosphatase of 144. ASSESSMENT: 1. Paroxysmal atrial fibrillation with present sinus rhythm. 2. Abnormal liver function tests. 3. Hypothyroidism. 4. Alcohol withdrawal without complications. 5. Chronic obstructive pulmonary disease. 6. This admission diagnosis of rhabdomyolysis, which is resolved. 7. History of alcohol dependency. 8. Elevated troponin-I, which has now trended down, most likely secondary to congestive heart failure and atrial fibrillation with rapid ventricular response. The troponin-I has trended down. 9. Altered mental status secondary to alcohol withdrawal. Note: 25 minutes spent on this patient with *------* and also discussion with hospitalist taking care of the patient. DICTATING PHYSICIAN: ELIA SHABAZZ M.D. [id number] PHY#: [id number] ID: [id number] JOB#: [id number] ACCT: [id number] cc:ELIA SHABAZZ M.D. >
[2016-05-12] MEDS: ASPIRIN 325 MG TABLET NG SCH (14:03)
[2016-05-12] MEDS: BACITRACIN ZINC OINTMENT 15 GM TP SCH ×2 (18:19→18:34)
[2016-05-12] MEDS: LORAZEPAM INJ 2 MG/1 ML VIAL IV PRN (20:47)
--- NOTE | 2016-05-12 21:28 | PROGRESS NOTE E ---
Progress Note NAME: LIZABETH MICHAELS : 1940 AGE: 75Y DATE: 05/12/2016 ROOM: 527 SUBJECTIVE: The patient is very confused and has withdrawal symptoms. He is in restraints. No history is available. The patient appears to be cachectic and chronically ill-looking. OBJECTIVE: VITAL SIGNS: He is afebrile with temperature 98.1 degrees Fahrenheit. Pulse is 92 beats per minute. Blood pressure 134/84. Respirations are 15 per minute. O2 saturations are 96% on 4 L. Note that the patient remains in sinus rhythm. HEENT: On examination, head is atraumatic, normocephalic. Eyes: Pupils are equal, round, regular, reactive to light. ENT is negative. NECK: Supple. There is no JVD. Carotids are equal; there is no bruit. LUNGS: Scattered rhonchi bilaterally. There is diminished air entry and prolonged expiration. CARDIOVASCULAR: S1, S2 are heard. There is no S3 gallop. There is no S4 gallop. There is no rub. There is systolic murmur in the left sternal border and the apex. ABDOMEN: Soft, nontender. There is no hepatosplenomegaly. Bowel sounds are well heard. EXTREMITIES: Pedal pulses are diminished. Leg pulses are diminished. There is no pedal edema. There are healed abrasions on the skin of the lower extremities. There is no cyanosis or clubbing. CENTRAL NERVOUS SYSTEM: The patient is very somnolent, agitated with signs of alcohol withdrawal. PSYCHIATRIC: Not examined. DIAGNOSTIC TESTS: The patient's sodium is 134, potassium 4.3, chloride 100, CO2 26. The patient's BUN is 16, creatinine 0.62. GFR is greater than 60. Calcium is 8.9. The patient's liver function tests are still abnormal which are worse now with an AST of 393, ALT of 646, and alkaline phosphatase of 178. Serum ammonia is less than 8.7. The patient's albumin is 2.6. His total protein is 5.3. ASSESSMENT: 1. PAROXYSMAL ATRIAL FIBRILLATION, AT PRESENT IN SINUS RHYTHM. 2. ABNORMAL LIVER FUNCTION TESTS WHICH ARE STILL ELEVATING. 3. HYPOTHYROIDISM. 4. ALCOHOL WITHDRAWAL WITHOUT COMPLICATIONS. 5. COPD. 6. HISTORY OF ALCOHOL DEPENDENCY. 7. ALTERED MENTAL STATUS SECONDARY TO ALCOHOL WITHDRAWAL. 8. HISTORY OF ELEVATED TROPONIN-I ON THIS ADMISSION WHICH HAS TRENDED DOWN SECONDARY TO CONGESTIVE HEART FAILURE AND ATRIAL FIBRILLATION WITH RAPID VENTRICULAR RESPONSE. 9. HISTORY OF RHABDOMYOLYSIS THIS ADMISSION WHICH HAS RESOLVED. RECOMMENDATIONS: Would continue current treatment. Patient not a candidate for any aggressive treatment. Would recommend speaking with the family to make the patient hospice care. The patient remains in sinus rhythm on current dose of Cardizem at 30 mg via NG tube q.6 hours. Continue NG tube feedings. Continue anti-alcohol withdrawal medication. TIME SPENT: Note 25 minutes spent on the patient with more than 50% of the time spent in direct patient care. Discussed with the hospitalist taking care of the patient. We will sign off the case. DICTATING PHYSICIAN: ELIA SHABAZZ M.D. [id number] [id number] MARYLOU#: [id number] ID: [id number] JOB#: [id number] ACCT: [id number] cc: >
[2016-05-13] MEDS: ALBUTEROL SULFATE 0.083% NEB 2.5 MG/3 ML AMPUL NEB SCH ×4 (02:17→19:54)
[2016-05-13] MEDS: DILTIAZEM HCL 30 MG TABLET NG SCH ×2 (06:15→14:09)
[2016-05-13] MEDS: THIAMINE HCL 100 MG, FOLIC ACID 1 MG in NORMAL SALINE 50 ML IV SCH (11:54)
[2016-05-13] MEDS: BACITRACIN ZINC OINTMENT 15 GM TP SCH ×2 (12:07→17:41)
[2016-05-13] MEDS: PREDNISONE 10 MG TABLET NG SCH (14:09)
[2016-05-13] MEDS: LACTULOSE SYRUP 20 GM/30 ML UDCUP NG SCH (14:09)
[2016-05-13] MEDS: LEVOTHYROXINE SODIUM 0.025 MG TABLET NG SCH (14:09)
[2016-05-13] MEDS: ASPIRIN 325 MG TABLET NG SCH (14:09)
[2016-05-13] MEDS: FERROUS SULFATE LIQUID 300 MG/5 ML UDC NG SCH (14:09)
[2016-05-13] MEDS ORDERED: GLYCOPYRROLATE INJ 0.4 MG/2 ML VIAL IV PRN (15:02)
--- NOTE | 2016-05-13 15:06 | PDOC PROGRESS REPORT ---
Subjective Progress Note for:: 05/13/16 Subjective:: Patient seen on morning rounds. He remains confused, obtunded, and agitated at times. He presently is not verbal. He has a sitter at bedside. He has soft wrist restraints to 2 NG tube and oxygen. He is receiving enteral feedings through the NG tube. There is presently no family available. Review of systems are unobtainable due to patient's presentation. Physical Exam Vital Signs: Temp Pulse Resp BP Pulse Ox 98.6 F 81 18 112/58 L 95 05/13/16 11:28 05/13/16 14:00 05/13/16 13:50 05/13/16 11:28 05/13/16 13:50 Intake & Output 05/12/16 05/13/16 05/14/16 06:59 06:59 06:59 Intake Total 2658 480 1157 Balance 2658 480 1157 Weight 56.3 kg 58.4 kg General appearance: PRESENT: no acute distress, thin Head exam: PRESENT: atraumatic, normocephalic Eye exam: PRESENT: conjunctiva pink, EOMI, PERRLA. ABSENT: scleral icterus Ear exam: PRESENT: normal external ear exam Mouth exam: PRESENT: moist, tongue midline Neck exam: ABSENT: carotid bruit, JVD, lymphadenopathy, thyromegaly Respiratory exam: PRESENT: decreased breath sounds, rhonchi. ABSENT: rales, wheezes Cardiovascular exam: PRESENT: RRR. ABSENT: diastolic murmur, rubs, systolic murmur Pulses: PRESENT: normal dorsalis pedis pul Vascular exam: PRESENT: normal capillary refill GI/Abdominal exam: PRESENT: normal bowel sounds, soft. ABSENT: distended, guarding, mass, organolmegaly, rebound, tenderness Rectal exam: PRESENT: deferred Extremities exam: PRESENT: full ROM. ABSENT: calf tenderness, clubbing, pedal edema Musculoskeletal exam: PRESENT: full ROM Neurological exam: PRESENT: alert Psychiatric exam: PRESENT: agitated, anxious Skin exam: PRESENT: dry, intact, warm. ABSENT: cyanosis, rash Results Laboratory Results: 05/10/16 04:19 05/12/16 04:31 05/03/16 05/03/16 05/03/16 06:16 06:16 12:20 Creatine Kinase 2104 H 1856 H CK-MB (CK-2) 12.70 H Troponin I 0.983 NT-Pro-B Natriuret Pep 05/03/16 05/03/16 05/03/16 12:20 18:10 18:10 Creatine Kinase 1870 H CK-MB (CK-2) 10.90 H 11.20 H Troponin I 0.801 0.777 NT-Pro-B Natriuret Pep 05/04/16 05/04/16 05/05/16 04:39 04:39 04:32 Creatine Kinase 1525 H 553 H CK-MB (CK-2) Troponin I NT-Pro-B Natriuret Pep 4120 H 05/10/16 04:19 Creatine Kinase 130 CK-MB (CK-2) Troponin I NT-Pro-B Natriuret Pep Impressions: Head CT 05/03/16 00:00 IMPRESSION: MILD CHRONIC CHANGES OF ATROPHY AND MICROVASCULAR ISCHEMIA. NO ACUTE PROCESS. Chest/Abdomen CTA 05/04/16 00:00 IMPRESSION: 1. No PE. 2. UIP pattern consistent with pulmonary fibrosis and possible superimposed infection. Clinical correlation is needed. 3. Right liver mass grossly unchanged from 04/24/2015. Chest X-Ray 05/05/16 06:00 IMPRESSION: No interval change. KUB X-Ray 05/07/16 00:00 IMPRESSION: Suboptimal exam. NG tube coiled in the stomach with the tip in the region of the GE junction. Assessment & Plan - Diagnosis (1) Encephalopathy Is this a current diagnosis for this admission?: YesPlan: Most likely secondary to alcohol abuse and elevated ammonia levels. He is getting lactulose ammonia levels are now <8.7. AST and ALT continue to rise. We have made multiple attempts to contact his daughter, including in [place] police. She has not responded to any phone calls police did not find her at the residence of her last known address. Discharge planning has contacted [employer] to provide guardianship. 2 physicians who have written for comfort measures only (2) Acute hypoxemic respiratory failure Is this a current diagnosis for this admission?: Yes (3) Atrial fibrillation with RVR Is this a current diagnosis for this admission?: YesPlan: Presently rate controlled the patient will have echocardiogram. Dr. Rowan saw the patient in consult for cardiology. He presently is in NSR (4) COPD exacerbation Is this a current diagnosis for this admission?: YesPlan: Continue oxygen, nebulizers, and steroids. (5) Congestive heart failure Qualifiers: Congestive heart failure type: diastolic Congestive heart failure chronicity: acute Qualified Code(s): I50.31 - Acute diastolic (congestive ) heart failure Is this a current diagnosis for this admission?: YesPlan: Comfort measures only (6) Elevated LFTs Is this a current diagnosis for this admission?: YesPlan: Continue to worsen,. Liver mass of over a year (7) Elevated troponin Is this a current diagnosis for this admission?: YesPlan: Cardiology is following. Patient is not a candidate for any invasive testing.
[2016-05-13] MEDS ORDERED: SCOPOLAMINE HYDROBROMIDE 1.5 MG PATCH.TD72 TD ONE (15:30)
[2016-05-13] MEDS: LORAZEPAM INJ 2 MG/1 ML VIAL IV PRN (17:38)
[2016-05-13 22:51] VITALS: BP 108/54
[2016-05-14] MEDS: BACITRACIN ZINC OINTMENT 15 GM TP SCH ×2 (11:24→19:03)
--- NOTE | 2016-05-14 11:44 | PDOC PROGRESS REPORT ---
Subjective Progress Note for:: 05/14/16 Subjective:: The patient was seen earlier today on rounds. The patient is only responsive to noxious stimuli. Appears to be comfortable at this time. Physical Exam Vital Signs: Temp Pulse Resp BP Pulse Ox 98.3 F 94 18 108/54 L 96 05/13/16 19:16 05/13/16 19:55 05/13/16 19:55 05/13/16 19:16 05/14/16 01:14 Intake & Output 05/12/16 05/13/16 05/14/16 23:59 23:59 23:59 Intake Total 1380 2239 0 Output Total 200 Balance 1380 2039 0 Weight 58.4 kg General appearance: PRESENT: cooperative, disheveled Exam: Frail, chronically ill-appearing Head exam: PRESENT: atraumatic, normocephalic Eye exam: PRESENT: periorbital swelling, scleral icterus Mouth exam: PRESENT: dry mucosa Respiratory exam: PRESENT: decreased breath sounds, rales, symmetrical, unlabored. ABSENT: tachypnea Cardiovascular exam: PRESENT: RRR. ABSENT: diastolic murmur, rubs, systolic murmur Vascular exam: PRESENT: pallor GI/Abdominal exam: PRESENT: normal bowel sounds, soft. ABSENT: distended, guarding, mass, organolmegaly, rebound, tenderness Rectal exam: PRESENT: deferred Neurological exam: PRESENT: altered. ABSENT: alert, awake Skin exam: PRESENT: dry, intact, jaundice, warm. ABSENT: cyanosis, rash Results Laboratory Results: 05/10/16 04:19 05/12/16 04:31 05/03/16 05/03/16 05/03/16 06:16 06:16 12:20 Creatine Kinase 2104 H 1856 H CK-MB (CK-2) 12.70 H Troponin I 0.983 NT-Pro-B Natriuret Pep 05/03/16 05/03/16 05/03/16 12:20 18:10 18:10 Creatine Kinase 1870 H CK-MB (CK-2) 10.90 H 11.20 H Troponin I 0.801 0.777 NT-Pro-B Natriuret Pep 05/04/16 05/04/16 05/05/16 04:39 04:39 04:32 Creatine Kinase 1525 H 553 H CK-MB (CK-2) Troponin I NT-Pro-B Natriuret Pep 4120 H 05/10/16 04:19 Creatine Kinase 130 CK-MB (CK-2) Troponin I NT-Pro-B Natriuret Pep Impressions: Head CT 05/03/16 00:00 IMPRESSION: MILD CHRONIC CHANGES OF ATROPHY AND MICROVASCULAR ISCHEMIA. NO ACUTE PROCESS. Chest/Abdomen CTA 05/04/16 00:00 IMPRESSION: 1. No PE. 2. UIP pattern consistent with pulmonary fibrosis and possible superimposed infection. Clinical correlation is needed. 3. Right liver mass grossly unchanged from 04/24/2015. Chest X-Ray 05/05/16 06:00 IMPRESSION: No interval change. KUB X-Ray 05/07/16 00:00 IMPRESSION: Suboptimal exam. NG tube coiled in the stomach with the tip in the region of the GE junction. Assessment & Plan - Diagnosis (1) Acute hypoxemic respiratory failure Is this a current diagnosis for this admission?: Yes (2) Atrial fibrillation with RVR Is this a current diagnosis for this admission?: Yes (3) COPD exacerbation Is this a current diagnosis for this admission?: Yes (4) Congestive heart failure Qualifiers: Congestive heart failure type: diastolic Congestive heart failure chronicity: acute Qualified Code(s): I50.31 - Acute diastolic (congestive ) heart failure Is this a current diagnosis for this admission?: Yes (5) Deafness Is this a current diagnosis for this admission?: Yes (6) Elevated LFTs Is this a current diagnosis for this admission?: Yes (7) Elevated troponin Is this a current diagnosis for this admission?: Yes (8) Encephalopathy Is this a current diagnosis for this admission?: Yes (9) Liver mass, right lobe Is this a current diagnosis for this admission?: Yes (10) Nonsustained ventricular tachycardia Is this a current diagnosis for this admission?: Yes (11) Pneumonia Qualifiers: Pneumonia type: due to unspecified organism Laterality: right Lung location: middle lobe of lung Qualified Code(s): J18.1 - Lobar pneumonia , unspecified organism Is this a current diagnosis for this admission?: Yes (12) Rhabdomyolysis Is this a current diagnosis for this admission?: Yes (13) SIRS (systemic inflammatory response syndrome) Is this a current diagnosis for this admission?: Yes (14) Severe malnutrition Is this a current diagnosis for this admission?: Yes (15) Alcohol dependence Is this a current diagnosis for this admission?: Yes (16) Hyponatremia Is this a current diagnosis for this admission?: Yes (17) Falls Is this a current diagnosis for this admission?: Yes - Time Time Spent with patient: 15-24 minutes Medications reviewed and adjusted accordingly: Yes Disposition: The patient is a DO NOT RESUSCITATE DO NOT INTUBATE with comfort care measures only. Will reevaluate as needed.
[2016-05-15] MEDS: BACITRACIN ZINC OINTMENT 15 GM TP SCH ×2 (10:00→18:35)
--- NOTE | 2016-05-15 10:37 | PDOC PROGRESS REPORT ---
Subjective Progress Note for:: 05/15/16 Subjective:: The patient was seen earlier today on rounds. The patient is a little more responsive. Appears to be comfortable at this time. Physical Exam Vital Signs: Temp Pulse Resp BP Pulse Ox 98.3 F 94 18 108/54 L 96 05/13/16 19:16 05/13/16 19:55 05/13/16 19:55 05/13/16 19:16 05/14/16 01:14 Intake & Output 05/13/16 05/14/16 05/15/16 23:59 23:59 23:59 Intake Total 2239 0 0 Output Total 200 Balance 2039 0 0 General appearance: PRESENT: cooperative, disheveled Exam: Frail, chronically ill-appearing Head exam: PRESENT: atraumatic, normocephalic Eye exam: PRESENT: periorbital swelling, scleral icterus Mouth exam: PRESENT: dry mucosa Respiratory exam: PRESENT: decreased breath sounds, rales, symmetrical, unlabored. ABSENT: tachypnea Cardiovascular exam: PRESENT: RRR. ABSENT: diastolic murmur, rubs, systolic murmur Vascular exam: PRESENT: pallor GI/Abdominal exam: PRESENT: normal bowel sounds, soft. ABSENT: distended, guarding, mass, organolmegaly, rebound, tenderness Rectal exam: PRESENT: deferred Neurological exam: PRESENT: altered. ABSENT: alert, awake Skin exam: PRESENT: dry, intact, jaundice, warm. ABSENT: cyanosis, rash Results Laboratory Results: 05/10/16 04:19 05/12/16 04:31 05/03/16 05/03/16 05/03/16 06:16 06:16 12:20 Creatine Kinase 2104 H 1856 H CK-MB (CK-2) 12.70 H Troponin I 0.983 NT-Pro-B Natriuret Pep 05/03/16 05/03/16 05/03/16 12:20 18:10 18:10 Creatine Kinase 1870 H CK-MB (CK-2) 10.90 H 11.20 H Troponin I 0.801 0.777 NT-Pro-B Natriuret Pep 05/04/16 05/04/16 05/05/16 04:39 04:39 04:32 Creatine Kinase 1525 H 553 H CK-MB (CK-2) Troponin I NT-Pro-B Natriuret Pep 4120 H 05/10/16 04:19 Creatine Kinase 130 CK-MB (CK-2) Troponin I NT-Pro-B Natriuret Pep Impressions: Head CT 05/03/16 00:00 IMPRESSION: MILD CHRONIC CHANGES OF ATROPHY AND MICROVASCULAR ISCHEMIA. NO ACUTE PROCESS. Chest/Abdomen CTA 05/04/16 00:00 IMPRESSION: 1. No PE. 2. UIP pattern consistent with pulmonary fibrosis and possible superimposed infection. Clinical correlation is needed. 3. Right liver mass grossly unchanged from 04/24/2015. Chest X-Ray 05/05/16 06:00 IMPRESSION: No interval change. KUB X-Ray 05/07/16 00:00 IMPRESSION: Suboptimal exam. NG tube coiled in the stomach with the tip in the region of the GE junction. Assessment & Plan - Diagnosis (1) COPD exacerbation Is this a current diagnosis for this admission?: Yes (2) Acute hypoxemic respiratory failure Is this a current diagnosis for this admission?: Yes (3) Atrial fibrillation with RVR Is this a current diagnosis for this admission?: Yes (4) Congestive heart failure Qualifiers: Congestive heart failure type: diastolic Congestive heart failure chronicity: acute Qualified Code(s): I50.31 - Acute diastolic (congestive ) heart failure Is this a current diagnosis for this admission?: Yes (5) Deafness Is this a current diagnosis for this admission?: Yes (6) Elevated troponin Is this a current diagnosis for this admission?: Yes (7) Encephalopathy Is this a current diagnosis for this admission?: Yes (8) Liver mass, right lobe Is this a current diagnosis for this admission?: Yes (9) Nonsustained ventricular tachycardia Is this a current diagnosis for this admission?: Yes (10) Pneumonia Qualifiers: Pneumonia type: due to unspecified organism Laterality: right Lung location: middle lobe of lung Qualified Code(s): J18.1 - Lobar pneumonia , unspecified organism Is this a current diagnosis for this admission?: Yes (11) Rhabdomyolysis Is this a current diagnosis for this admission?: Yes (12) SIRS (systemic inflammatory response syndrome) Is this a current diagnosis for this admission?: Yes (13) Severe malnutrition Is this a current diagnosis for this admission?: Yes (14) Alcohol dependence Is this a current diagnosis for this admission?: Yes (15) Hyponatremia Is this a current diagnosis for this admission?: Yes (16) Falls Is this a current diagnosis for this admission?: Yes - Time Time Spent with patient: Less than 15 minutes Medications reviewed and adjusted accordingly: Yes Anticipated discharge: Hospice Within: when bed available Disposition: The patient is a DNR/DNI with comfort care measures only
[2016-05-15] MEDS: LORAZEPAM INJ 2 MG/1 ML VIAL IV PRN ×2 (18:34→21:57)
[2016-05-16] MEDS: LORAZEPAM INJ 2 MG/1 ML VIAL IV PRN ×2 (00:32→03:44)
[2016-05-16] MEDS: MORPHINE SULFATE 10 MG/ML INJ IV PRN ×3 (10:01→21:47)
[2016-05-16] MEDS: BACITRACIN ZINC OINTMENT 15 GM TP SCH ×2 (10:03→17:37)
--- NOTE | 2016-05-16 11:26 | PDOC PROGRESS REPORT ---
Subjective Progress Note for:: 05/16/16 Subjective:: The patient was seen earlier today on rounds. The patient is a little more responsive. Appears to be comfortable at this time. Physical Exam Vital Signs: Temp Pulse Resp BP Pulse Ox 98.3 F 94 18 108/54 L 96 05/13/16 19:16 05/13/16 19:55 05/13/16 19:55 05/13/16 19:16 05/14/16 01:14 Intake & Output 05/14/16 05/15/16 05/16/16 23:59 23:59 23:59 Intake Total 0 0 Balance 0 0 General appearance: PRESENT: cooperative, disheveled Exam: Frail, chronically ill-appearing Head exam: PRESENT: atraumatic, normocephalic Eye exam: PRESENT: periorbital swelling, scleral icterus Mouth exam: PRESENT: dry mucosa Respiratory exam: PRESENT: decreased breath sounds, rales, symmetrical, unlabored. ABSENT: tachypnea Cardiovascular exam: PRESENT: RRR. ABSENT: diastolic murmur, rubs, systolic murmur Vascular exam: PRESENT: pallor GI/Abdominal exam: PRESENT: normal bowel sounds, soft. ABSENT: distended, guarding, mass, organolmegaly, rebound, tenderness Rectal exam: PRESENT: deferred Neurological exam: PRESENT: altered. ABSENT: alert, awake Skin exam: PRESENT: dry, intact, jaundice, warm. ABSENT: cyanosis, rash Results Laboratory Results: 05/10/16 04:19 05/12/16 04:31 05/03/16 05/03/16 05/03/16 06:16 06:16 12:20 Creatine Kinase 2104 H 1856 H CK-MB (CK-2) 12.70 H Troponin I 0.983 NT-Pro-B Natriuret Pep 05/03/16 05/03/16 05/03/16 12:20 18:10 18:10 Creatine Kinase 1870 H CK-MB (CK-2) 10.90 H 11.20 H Troponin I 0.801 0.777 NT-Pro-B Natriuret Pep 05/04/16 05/04/16 05/05/16 04:39 04:39 04:32 Creatine Kinase 1525 H 553 H CK-MB (CK-2) Troponin I NT-Pro-B Natriuret Pep 4120 H 05/10/16 04:19 Creatine Kinase 130 CK-MB (CK-2) Troponin I NT-Pro-B Natriuret Pep Impressions: Head CT 05/03/16 00:00 IMPRESSION: MILD CHRONIC CHANGES OF ATROPHY AND MICROVASCULAR ISCHEMIA. NO ACUTE PROCESS. Chest/Abdomen CTA 05/04/16 00:00 IMPRESSION: 1. No PE. 2. UIP pattern consistent with pulmonary fibrosis and possible superimposed infection. Clinical correlation is needed. 3. Right liver mass grossly unchanged from 04/24/2015. Chest X-Ray 05/05/16 06:00 IMPRESSION: No interval change. KUB X-Ray 05/07/16 00:00 IMPRESSION: Suboptimal exam. NG tube coiled in the stomach with the tip in the region of the GE junction. Assessment & Plan - Diagnosis (1) COPD exacerbation Is this a current diagnosis for this admission?: Yes (2) Acute hypoxemic respiratory failure Is this a current diagnosis for this admission?: Yes (3) Atrial fibrillation with RVR Is this a current diagnosis for this admission?: Yes (4) Congestive heart failure Qualifiers: Congestive heart failure type: diastolic Congestive heart failure chronicity: acute Qualified Code(s): I50.31 - Acute diastolic (congestive ) heart failure Is this a current diagnosis for this admission?: Yes (5) Deafness Is this a current diagnosis for this admission?: Yes (6) Elevated troponin Is this a current diagnosis for this admission?: Yes (7) Encephalopathy Is this a current diagnosis for this admission?: Yes (8) Liver mass, right lobe Is this a current diagnosis for this admission?: Yes (9) Nonsustained ventricular tachycardia Is this a current diagnosis for this admission?: Yes (10) Pneumonia Qualifiers: Pneumonia type: due to unspecified organism Laterality: right Lung location: middle lobe of lung Qualified Code(s): J18.1 - Lobar pneumonia , unspecified organism Is this a current diagnosis for this admission?: Yes (11) Rhabdomyolysis Is this a current diagnosis for this admission?: Yes (12) SIRS (systemic inflammatory response syndrome) Is this a current diagnosis for this admission?: Yes (13) Severe malnutrition Is this a current diagnosis for this admission?: Yes (14) Alcohol dependence Is this a current diagnosis for this admission?: Yes (15) Hyponatremia Is this a current diagnosis for this admission?: Yes (16) Falls Is this a current diagnosis for this admission?: Yes - Time Time Spent with patient: Less than 15 minutes Medications reviewed and adjusted accordingly: Yes Anticipated discharge: Hospice Within: when bed available
[2016-05-17] MEDS: MORPHINE SULFATE 10 MG/ML INJ IV PRN ×3 (04:16→13:13)
[2016-05-17] MEDS ORDERED: MORPHINE SULFATE 60 MG/60 ML RTUINJ IV PRN (09:47)
[2016-05-17] MEDS ORDERED: LORAZEPAM INJ 2 MG/1 ML VIAL IV PRN (09:49)
[2016-05-17] MEDS: BACITRACIN ZINC OINTMENT 15 GM TP SCH (10:15)
--- NOTE | 2016-05-17 14:19 | PDOC TRANSFER SUMMARY ---
General - Admit/Disc Date/PCP Admission Date/Primary Care Provider: 05/03/16 00:53 CAROLINA KERNS MD Discharge Date: 05/17/16 - Discharge Diagnosis (1) COPD exacerbation Is this a current diagnosis for this admission?: Yes (2) Acute hypoxemic respiratory failure Is this a current diagnosis for this admission?: Yes (3) Atrial fibrillation with RVR Is this a current diagnosis for this admission?: Yes (4) Congestive heart failure Is this a current diagnosis for this admission?: Yes (5) Deafness Is this a current diagnosis for this admission?: Yes (6) Elevated troponin Is this a current diagnosis for this admission?: Yes (7) Encephalopathy Is this a current diagnosis for this admission?: Yes (8) Liver mass, right lobe Is this a current diagnosis for this admission?: Yes (9) Nonsustained ventricular tachycardia Is this a current diagnosis for this admission?: Yes (10) Pneumonia Is this a current diagnosis for this admission?: Yes (11) Rhabdomyolysis Is this a current diagnosis for this admission?: Yes (12) SIRS (systemic inflammatory response syndrome) Is this a current diagnosis for this admission?: Yes (13) Severe malnutrition Is this a current diagnosis for this admission?: Yes (14) Alcohol dependence Is this a current diagnosis for this admission?: Yes (15) Hyponatremia Is this a current diagnosis for this admission?: Yes (16) Falls Is this a current diagnosis for this admission?: Yes - Additional Information Resuscitation Status: Do Not Resuscitate - DO NOT RESUSCITATE DO NOT INTUBATE with comfort care measures only Discharge Diet: As Tolerated Discharge Activity: Activity As Tolerated Home Medications: Albuterol Sulfate [Proair HFA] 2 puff IN Q6HP PRN 05/03/16 History of Present Illness Admission Date/PCP: 05/03/16 00:53 CAROLINA KERNS MD Patient complains of: Shortness of breath History of Present Illness: LIZABETH MICHAELS is a 75 year old male with a past medical history of alcohol dependence, COPD deafness and recurrent falls, was hospitalized yesterday for COPD exacerbation, hyponatremia and alcohol withdrawal but left AGAINST MEDICAL ADVICE 12 hours ago. He returns after noted by family members to be short of breath and difficult to arouse and brought to the emergency room for evaluation where he is in respiratory distress with a cough producing copious amounts of purulent material, appearing intoxicated and smelling of alcohol. Labs showed improvement of hyponatremia, leukocytosis and Imaging reveals bilateral infiltrates he started on DuoNeb and BiPAP he is IVCed and referred to the hospitalist for admission. Subsequently patient was noted to have troponin I elevation in the non-STEMI range and also some EKG changes. I was therefore asked to evaluate this patient. This history was confirmed by chart review and by talking to the nurses and hospitalist. Patient himself not being able to be interviewed because he seems very lethargic and not able to speak much. Hospital Course Hospital Course: The patient was admitted to telemetry unit. The patient was treated for atrial fibrillation, pneumonia, COPD exacerbation, alcohol delirium, elevated troponin and acute CHF. Patient's mental status did wax and wane. The patient was noted be quite cachectic. Patient was noted to be cirrhotic. The patient's condition rapidly deteriorated throughout the hospital stay. Given the patient' s comorbidities was transitioned to comfort care measures. Physical Exam Vital Signs: Temp Pulse Resp BP Pulse Ox 98.3 F 94 18 108/54 L 96 05/13/16 19:16 05/13/16 19:55 05/13/16 19:55 05/13/16 19:16 05/14/16 01:14 Intake & Output 05/15/16 05/16/16 05/17/16 23:59 23:59 23:59 Intake Total 0 Balance 0 General appearance: PRESENT: cooperative, disheveled Exam: Frail, chronically ill-appearing Head exam: PRESENT: atraumatic, normocephalic Eye exam: PRESENT: periorbital swelling, scleral icterus Mouth exam: PRESENT: dry mucosa Respiratory exam: PRESENT: decreased breath sounds, rales, symmetrical, unlabored. ABSENT: tachypnea Cardiovascular exam: PRESENT: RRR. ABSENT: diastolic murmur, rubs, systolic murmur Vascular exam: PRESENT: pallor GI/Abdominal exam: PRESENT: normal bowel sounds, soft. ABSENT: distended, guarding, mass, organolmegaly, rebound, tenderness Rectal exam: PRESENT: deferred Neurological exam: PRESENT: altered. ABSENT: alert, awake Skin exam: PRESENT: dry, intact, jaundice, warm. ABSENT: cyanosis, rash Results Laboratory Results: Labs- Last Values WBC 12.5 10^3/uL (4.0-10.5) H 05/10/16 04:19 RBC 3.30 10^6/uL (4.35-5.55) L 05/10/16 04:19 Hgb 9.2 g/dL (13.5-17.0) L 05/10/16 04:19 Hct 27.4 % (37.9-51.0) L 05/10/16 04:19 MCV 83 fl (80-97) 05/10/16 04:19 MCH 27.8 pg (27.0-33.4) 05/10/16 04:19 MCHC 33.4 g/dL (32.0-36.0) 05/10/16 04:19 RDW 17.2 % (11.5-14.0) H 05/10/16 04:19 Plt Count 223 10^3/uL (150-450) 05/10/16 04:19 Total Counted 100 05/10/16 04:19 Seg Neutrophils % Not Reportable 05/10/16 04:19 Seg Neuts % (Manual) 88 % (42-78) H 05/10/16 04:19 Band Neutrophils % 1 % (3-5) L 05/10/16 04:19 Lymphocytes % Not Reportable 05/10/16 04:19 Lymphocytes % (Manual) 6 % (13-45) L 05/10/16 04:19 Monocytes % Not Reportable 05/10/16 04:19 Monocytes % (Manual) 5 % (3-13) 05/10/16 04:19 Eosinophils % Not Reportable 05/10/16 04:19 Eosinophils % (Manual) 0 % (0-6) 05/10/16 04:19 Basophils % Not Reportable 05/10/16 04:19 Basophils % (Manual) 0 % (0-2) 05/10/16 04:19 Absolute Neutrophils Not Reportable 05/10/16 04:19 Abs Neuts (Manual) 11.1 10^3/uL (1.7-8.2) H 05/10/16 04:19 Absolute Lymphocytes Not Reportable 05/10/16 04:19 Abs Lymphs (Manual) 0.8 10^3/uL (0.5-4.7) 05/10/16 04:19 Absolute Monocytes Not Reportable 05/10/16 04:19 Abs Monocytes (Manual) 0.6 10^3/uL (0.1-1.4) 05/10/16 04:19 Absolute Eosinophils Not Reportable 05/10/16 04:19 Absolute Eos (Manual) 0.0 10^3/uL (0.0-0.6) 05/10/16 04:19 Absolute Basophils Not Reportable 05/10/16 04:19 Abs Basophils (Manual) 0.0 10^3/uL (0.0-0.2) 05/10/16 04:19 Toxic Granulation SLIGHT 05/10/16 04:19 Toxic Vacuolation PRESENT 05/10/16 04:19 Large Platelets PRESENT 05/10/16 04:19 Platelet Comment ADEQUATE 05/10/16 04:19 Hypochromasia SLIGHT 05/10/16 04:19 Anisocytosis 1+ 05/10/16 04:19 Target Cells SLIGHT 05/10/16 04:19 Tear Drop Cells SLIGHT 05/10/16 04:19 Schistocytes SLIGHT 05/10/16 04:19 Retic Count (auto) 1.13 % (0.66-2.85) 05/03/16 06:16 Absolute Retic 0.037 10^6/uL (0.028-0.122) 05/03/16 06:16 Carbonic Acid 1.18 mmol/L (1.05-1.35) 05/05/16 14:50 HCO3/H2CO3 Ratio 19:1 05/05/16 14:50 ABG pH 7.38 (7.35-7.45) 05/05/16 14:50 ABG pCO2 39.3 mmHg (35-45) 05/05/16 14:50 ABG pO2 113.2 mmHg (80-100) H 05/05/16 14:50 ABG HCO3 22.9 mmol/L (20-26) 05/05/16 14:50 ABG Total CO2 24.1 mmol/L (23-27) 05/05/16 14:50 ABG O2 Saturation 98.1 % (94-98) H 05/05/16 14:50 ABG Base Excess -2.0 mmol/L 05/05/16 14:50 VBG pH 7.31 (7.30-7.42) 05/02/16 23:07 VBG pCO2 40.3 mmHg (35-63) 05/02/16 23:07 VBG HCO3 19.9 mmol/L (20-32) L 05/02/16 23:07 VBG Base Excess -5.9 mmol/L 05/02/16 23:07 FiO2 35% 05/05/16 14:50 Sodium 134.0 mmol/L (137-145) L 05/12/16 04:31 Potassium 4.3 mmol/L (3.6-5.0) 05/12/16 04:31 Chloride 100 mmol/L (98-107) 05/12/16 04:31 Carbon Dioxide 26 mmol/L (22-30) 05/12/16 04:31 Anion Gap 8 (5-19) 05/12/16 04:31 BUN 16 mg/dL (7-20) 05/12/16 04:31 Creatinine 0.62 mg/dL (0.52-1.25) 05/12/16 04:31 Est GFR ( Amer) > 60 (>60) 05/12/16 04:31 Est GFR (Non-Af Amer) > 60 (>60) 05/12/16 04:31 Glucose 100 mg/dL (75-110) 05/12/16 04:31 Lactic Acid 1.7 mmol/L (0.7-2.1) 05/02/16 19:53 Calcium 8.9 mg/dL (8.4-10.2) 05/12/16 04:31 Magnesium 2.4 mg/dL (1.6-2.3) H 05/06/16 05:11 Iron < 10.1 ug/dL (49-181) L 05/03/16 06:16 TIBC 195 ug/dL (250-450) L 05/03/16 06:16 % Saturation UNABLE TO CALCULATE % (20% - 50%) 05/03/16 06:16 Ferritin 1070.00 ng/mL (17.9-464.0) H 05/03/16 06:16 Total Bilirubin 0.6 mg/dL (0.2-1.3) 05/12/16 04:31 Direct Bilirubin 0.3 mg/dL (0.0-0.4) 05/12/16 04:31 Indirect Bilirubin Not Reportable 05/12/16 04:31 Neonat Total Bilirubin Not Reportable 05/12/16 04:31 AST 393 U/L (17-59) H 05/12/16 04:31 ALT 656 U/L (21-72) H 05/12/16 04:31 Alkaline Phosphatase 178 U/L (38-126) H 05/12/16 04:31 Ammonia < 8.7 umol/L (9-33) L 05/12/16 04:31 Creatine Kinase 130 U/L (55-170) 05/10/16 04:19 CK-MB (CK-2) 11.20 ng/mL (<4.55) H 05/03/16 18:10 Troponin I 0.777 ng/mL 05/03/16 18:10 NT-Pro-B Natriuret Pep 4120 pg/mL (5-900) H 05/04/16 04:39 Total Protein 5.3 g/dL (6.3-8.2) L 05/12/16 04:31 Albumin 2.6 g/dL (3.5-5.0) L 05/12/16 04:31 Triglycerides 116 mg/dL (<150) 05/04/16 04:39 Cholesterol 107.73 mg/dL (0-200) 05/04/16 04:39 LDL Cholesterol Direct < 30 mg/dL (<100) 05/04/16 04:39 VLDL Cholesterol 23.0 mg/dL (10-31) 05/04/16 04:39 HDL Cholesterol 40 mg/dL (>40) 05/04/16 04:39 Vitamin B12 887.0 pg/mL (239-931) 05/03/16 06:16 Folate 3.95 ng/mL (>2.76) 05/03/16 06:16 TSH 7.32 uIU/mL (0.47-4.68) H 05/10/16 04:19 Free T4 0.98 ng/dL (0.78-2.19) 05/10/16 04:19 Free T3 pg/mL 2.77 pg/mL (2.77-5.27) 05/10/16 04:19 Stool Occult Blood NEGATIVE (NEGATIVE) 05/08/16 22:05 Serum Alcohol < 10 mg/dL (NONE DETECTED) 05/02/16 19:53 05/03/16 08:30 Blood Culture - Final Blood NO GROWTH IN 5 DAYS 05/02/16 19:53 Blood Culture - Final Blood NO GROWTH IN 5 DAYS Impressions: Head CT 05/03/16 00:00 IMPRESSION: MILD CHRONIC CHANGES OF ATROPHY AND MICROVASCULAR ISCHEMIA. NO ACUTE PROCESS. Chest/Abdomen CTA 05/04/16 00:00 IMPRESSION: 1. No PE. 2. UIP pattern consistent with pulmonary fibrosis and possible superimposed infection. Clinical correlation is needed. 3. Right liver mass grossly unchanged from 04/24/2015. Chest X-Ray 05/05/16 06:00 IMPRESSION: No interval change. KUB X-Ray 05/07/16 00:00 IMPRESSION: Suboptimal exam. NG tube coiled in the stomach with the tip in the region of the GE junction. Transfer Plan - Disposition Transfer Plan: The patient be transferred to the hospice house at [facility] - Time Spent with Patient Time spent with patient: Greater than 30 Minutes Qualifiers PATEINT BEING DISCHARGED WITH ANY OF THE FOLLOWING DIAGNOSIS?: No
== END 2016-05-17 15:30 | disposition hospice, inpatient (51) | DRG 871 ==
LOC: ER 18:44 → EH 05-03 00:53 → UNDOADMIN 05-03 02:07 → 3N 05-03 09:21 → 5 05-06 00:57
PROVIDERS: ADMIT Internal Medicine; ATTEND Internal Medicine
PROC: 5A09557 Assistance with Respiratory Ventilation, Greater than 96 Consecutive Hours, Continuous Positive Airway Pressure (ICD-10-PCS; principal; 2016-05-03)
DX: A41.9 Sepsis, unspecified organism (principal); J96.01 Acute respiratory failure with hypoxia; J18.1 Lobar pneumonia, unspecified organism; G93.40 Encephalopathy, unspecified; E43 Unspecified severe protein-calorie malnutrition; I50.31 Acute diastolic (congestive) heart failure; J44.1 Chronic obstructive pulmonary disease with (acute) exacerbation; I47.2 Ventricular tachycardia; M62.82 Rhabdomyolysis; E87.1 Hypo-osmolality and hyponatremia; I48.0 Paroxysmal atrial fibrillation; R16.0 Hepatomegaly, not elsewhere classified; D50.9 Iron deficiency anemia, unspecified; F10.20 Alcohol dependence, uncomplicated; Z79.899 Other long term (current) drug therapy; H91.90 Unspecified hearing loss, unspecified ear; Z66 Do not resuscitate; F17.200 Nicotine dependence, unspecified, uncomplicated
CPT/HCPCS: 36415; 70450; 71010; 71275; 74000; 80048; 80053; 80061; 80076; 80307; 82140; 82272; 82550; 82553; 82607; 82728; 82746; 82803; 83540; 83550; 83605; 83735; 83880; 84439; 84443; 84481; 84484; 85025; 85045; 87040; 93005; 93010; 93306; 94640; 94660; 96365; 96368; 96375; 99291; J0282; J0456; J0692; J0696; J1644; J1940; J1956; J2060; J2270; J2920; J2930; J3360; J3411; J3475; J3480; J3490; J7030; J7060; J7512; J7620; S0164